=== PATIENT | male | born 1980 | race American Indian/Alaskan Native ===

== ENCOUNTER 2017-05-20 12:22 | Emergency (ER) | payer SELFPAY ==
[2017-05-20] MEDS ORDERED: XOPENEX IH ONE ×2 (12:42→12:43)
[2017-05-20] MEDS ORDERED: ATROVENT IH ONE ×2 (12:42→12:43)
[2017-05-20] MEDS: XOPENEX IH ONE (12:48)
[2017-05-20] MEDS ORDERED: MAGNESIUM SULFATE 2GM/50ML 2 GM/50 ML BAG IV ONE (12:55)
[2017-05-20 13:39] LABS: Basophils # (Auto) 0.1 K/mm3 (0.0-0.1); Basophils % (Auto) 1.2 % (0.0-1.8); Eosinophils # (Auto) 0.7 K/mm3 (0.0-0.4); Eosinophils % (Auto) 10.9 % (0.0-4.3); Hematocrit 42.1 % (35.5-45.6); Hemoglobin 14.3 gm/dl (11.8-15.2); Lymphocytes # (Auto) 2.4 K/mm3 (1.2-5.4); Lymphocytes % (Auto) 35.4 % (13.4-35.0); Mean Corpuscular HGB Conc 34 % (32-34); Mean Corpuscular Hemoglobin 32 pg (28-32); Mean Corpuscular Volume 94 fl (84-94); Monocytes # (Auto) 0.2 K/mm3 (0.0-0.8); Monocytes % (Auto) 3.6 % (0.0-7.3); Platelet Count 180 K/mm3 (140-440); Red Cell Distribution Width 13.3 % (13.2-15.2)
[2017-05-20 13:56] LABS: BUN/Creatinine Ratio 10; Blood Urea Nitrogen 9 mg/dL (9-20); Calcium 8.8 mg/dL (8.4-10.2); Hemolysis Index 3
--- NOTE | 2017-05-20 13:59 | XRay Report ---
AP CHEST: HISTORY: Short of breath, cough AP view of the chest demonstrates a normal mediastinal and cardiac contour with clear lungs and normal bony and soft tissue structures. IMPRESSION: Unremarkable AP chest.
--- NOTE | 2017-05-20 14:14 | Emergency Department Report ---
ED Asthma HPI - General Chief Complaint: Adult Asthma Stated Complaint: ASTHMA ATTACK/MODERATE Time Seen by Provider: 05/20/17 12:51 Source: patient, EMS Mode of arrival: Stretcher Limitations: No Limitations - History of Present Illness Initial Comments: 37 year old male with a past medical history of asthma without any previous intubations presents to the hospital complaining of shortness of breath since last night. Patient reports a cough productive of clear sputum. Complains of posterior back pain related to shortness of breath and coughing but denies chest pain. No complaints of fever, calf tenderness, or edema. Patient received albuterol 2.5 mg, Atrovent 0.5 mg, Solu-Medrol 125 mg prior to arrival and states that symptoms are starting to improve. - Related Data Previous Rx's Medication Instructions Recorded Last Taken Type Acetaminophen/Codeine 1 tab PO Q6H PRN #12 tab 02/01/14 Unknown Rx [Acetaminophen-Codeine #3 TAB] Cyclobenzaprine [Flexeril 10mg] 10 mg PO TID PRN #15 tablet 02/01/14 Unknown Rx Ibuprofen [Motrin 400 MG tab] 400 mg PO Q8H PRN #30 tablet 02/01/14 Unknown Rx ALBUTEROL Inhaler [ProAir HFA 2 puff IH QID PRN #1 inhalation 05/20/17 Unknown Rx Inhaler] ALBUTEROL NEB's [Proventil 0.083% 2.5 mg IH TID PRN #30 neb 05/20/17 Unknown Rx NEBS] Budesonide/Formoterol Fumarate 10.2 gm IH BID #1 hfa.aer.ad 05/20/17 Unknown Rx [Symbicort 160-4.5 Mcg Inhaler] predniSONE [Deltasone] 40 mg PO QDAY 5 Days tab 05/20/17 Unknown Rx Allergies Allergy/AdvReac Type Severity Reaction Status Date / Time No Known Allergies Allergy Verified 10/08/15 16:57 ED Review of Systems ROS: Stated complaint: ASTHMA ATTACK/MODERATE Other details as noted in HPI Comment: All other systems reviewed and negative Other: Constitutional: No fevers chills Eyes: No eye pain visual changes ENT: No ear pain or throat pain Neck: Denies pain Respiratory: As per HPI Cardiovascular: Denies chest pain GI: Denies abdominal pain, nausea, vomiting, diarrhea : Denies dysuria Musculoskeletal: Upper back pain Skin: Denies rash, lesions, erythema Neurologic: Denies headache, numbness, weakness Psychiatric: Denies suicidal ideation, hallucinations ED Past Medical Hx - Past Medical History Previous Medical History?: Yes Hx Asthma: Yes - Surgical History Past Surgical History?: No - Social History Smoking Status: Never Smoker Substance Use Type: Alcohol - Medications Home Medications: Home Medications Medication Instructions Recorded Confirmed Last Taken Type Acetaminophen/Codeine 1 tab PO Q6H PRN #12 tab 02/01/14 05/20/17 Unknown Rx [Acetaminophen-Codeine #3 TAB] Cyclobenzaprine [Flexeril 10mg] 10 mg PO TID PRN #15 tablet 02/01/14 05/20/17 Unknown Rx Ibuprofen [Motrin 400 MG tab] 400 mg PO Q8H PRN #30 tablet 02/01/14 05/20/17 Unknown Rx ALBUTEROL Inhaler [ProAir HFA 2 puff IH QID PRN #1 inhalation 05/20/17 Unknown Rx Inhaler] ALBUTEROL NEB's [Proventil 0.083% 2.5 mg IH TID PRN #30 neb 05/20/17 Unknown Rx NEBS] Budesonide/Formoterol Fumarate 10.2 gm IH BID #1 hfa.aer.ad 05/20/17 Unknown Rx [Symbicort 160-4.5 Mcg Inhaler] predniSONE [Deltasone] 40 mg PO QDAY 5 Days tab 05/20/17 Unknown Rx ED Physical Exam - General Limitations: No Limitations - Other Other exam information: General: No limitations, moderate distress secondary to shortness of breath Head exam: Atraumatic, normocephalic Eyes exam: Normal appearance ENT: Moist mucous membrane, normal oropharynx Neck exam: Normal inspection, full range of motion, no meningismus nontender Respiratory exam: Positive tachypnea, accessory muscle use, and wheezing Cardiovascular: Normal rate and rhythm, normal heart sounds Abdomen: Soft, nondistended, and nontender, with normal bowel sounds, no rebound, or guarding Extremity: Full range of motion normal inspection no deformity, no calf tenderness or edema Back: Normal Inspection, full range of motion, no tenderness Neurologic: Alert, oriented x3, cranial nerves intact, no motor or sensory deficit Psychiatric: normal affect, normal mood Skin: Warm, dry, intact ED Course Vital Signs 0205/20/17 05/20/17 12:37 12:44 13:01 Temperature 98.3 F Pulse Rate 111 H Pulse Rate [ 106 H 107 H Anterior Throughout] Respiratory 22 Rate Respiratory 22 20 Rate [Anterior Throughout] Blood Pressure 120/75 Blood Pressure [Left] O2 Sat by Pulse 97 Oximetry 05/20/17 05/20/17 15:32 16:10 Temperature Pulse Rate 77 Pulse Rate [ Anterior Throughout] Respiratory 16 Rate Respiratory Rate [Anterior Throughout] Blood Pressure Blood Pressure 108/80 [Left] O2 Sat by Pulse 96 Oximetry - Reevaluation(s) Reevaluation #1: 05/20/17 16:07 Patient still has wheezing. States he is feeling better. Declines offer for additional treatments per prefers to go home with prescriptions ED Medical Decision Making - Lab Data Result diagrams: 05/20/17 13:12 05/20/17 13:12 Lab Results 05/20/17 05/20/17 Range/Units 13:12 13:12 WBC 6.7 (4.5-11.0) K/mm3 RBC 4.50 (3.65-5.03) M/mm3 Hgb 14.3 (11.8-15.2) gm/dl Hct 42.1 (35.5-45.6) % MCV 94 (84-94) fl MCH 32 (28-32) pg MCHC 34 (32-34) % RDW 13.3 (13.2-15.2) % Plt Count 180 (140-440) K/mm3 Lymph % (Auto) 35.4 H (13.4-35.0) % Geary % (Auto) 3.6 (0.0-7.3) % Eos % (Auto) 10.9 H (0.0-4.3) % Baso % (Auto) 1.2 (0.0-1.8) % Lymph # 2.4 (1.2-5.4) K/mm3 Geary # 0.2 (0.0-0.8) K/mm3 Eos # 0.7 H (0.0-0.4) K/mm3 Baso # 0.1 (0.0-0.1) K/mm3 Seg Neutrophils % 48.9 (40.0-70.0) % Seg Neutrophils # 3.3 (1.8-7.7) K/mm3 Sodium 142 (137-145) mmol/L Potassium 4.2 (3.6-5.0) mmol/L Chloride 105.2 (98-107) mmol/L Carbon Dioxide 24 (22-30) mmol/L Anion Gap 17 mmol/L BUN 9 (9-20) mg/dL Creatinine 0.9 (0.8-1.5) mg/dL Estimated GFR > 60 ml/min BUN/Creatinine Ratio 10 % Glucose 94 (75-100) mg/dL Calcium 8.8 (8.4-10.2) mg/dL - Radiology Data Radiology results: report reviewed (chest x-ray: No acute finding) - Medical Decision Making Acute asthma exacerbation We'll be treated symptomatically Persistent wheezing Declines additional meds - Differential Diagnosis asthma, pneumonia, CHF, bronchitis Critical Care Time: No Critical care attestation.: If time is entered above; I have spent that time in minutes in the direct care of this critically ill patient, excluding procedure time. ED Disposition Clinical Impression: Acute asthma exacerbation Disposition: DC- TO HOME OR SELFCARE Is pt being admited?: No Does the pt Need Aspirin: No Condition: Stable Instructions: Asthma (ED) Additional Instructions: Take the medication as prescribed. Return if symptoms worsen. Prescriptions: ALBUTEROL Inhaler [ProAir HFA Inhaler] 2 puff IH QID PRN #1 inhalation PRN Reason: Shortness Of Breath ALBUTEROL NEB's [Proventil 0.083% NEBS] 2.5 mg IH TID PRN #30 neb PRN Reason: Wheezing Budesonide/Formoterol Fumarate [Symbicort 160-4.5 Mcg Inhaler] 10.2 gm IH BID # 1 hfa.aer.ad predniSONE [Deltasone] 40 mg PO QDAY 5 Days tab Referrals: [facility] [Provider Group] - 3-5 Days Time of Disposition: 16:10
[2017-05-20 15:33] VITALS: BP 108/80
== END 2017-05-20 16:29 | disposition home or self-care (01) ==
LOC: ED 12:22
DX: J45.901 Unspecified asthma with (acute) exacerbation (principal)
CPT/HCPCS: 36415; 71045; 80048; 85025; 94640; 96365; 99284; J3475

== ENCOUNTER 2017-10-08 09:07 | Emergency (ER) | payer SELFPAY ==
[2017-10-08 09:21] VITALS: BP 96/67
--- NOTE | 2017-10-08 10:24 | Emergency Department Report ---
ED Asthma HPI - General Chief Complaint: Adult Asthma Stated Complaint: ASMTHA Time Seen by Provider: 10/08/17 09:40 Source: patient Mode of arrival: Ambulatory Limitations: No Limitations - History of Present Illness Initial Comments: Patient with poor compliance and poor follow-up has had difficulty with control of his chronic asthma. He states that he started about 5 days ago with an asthma attack this would off arm since. He is running low on his meds. He has no PCP however he did just get health insurance and is in the process of arranging a new PCP. He is here for persistent wheezes for about a week. He did have some old prednisone on the shelf that he decided to take for several days. He denies chest pain he denies fever he denies headache stiff neck he denies productive sputum he denies syncope he denies any focal neural complaints he is here for evaluation of persistent wheezes with history of chronic asthma. His vital signs are stable his sat is normal he has no other complaints no stiff neck no headache no fever MD Complaint: "asthma attack", wheezing -: Gradual, days(s) Severity: mild, moderate Context: other (humidity exercise"air polluitn) - Related Data Current Asthma Therapy: inhaled bronchodilator, recent oral steroid Previous Rx's Medication Instructions Recorded Last Taken Type Acetaminophen/Codeine 1 tab PO Q6H PRN #12 tab 02/01/14 Unknown Rx [Acetaminophen-Codeine #3 TAB] Cyclobenzaprine [Flexeril 10mg] 10 mg PO TID PRN #15 tablet 02/01/14 Unknown Rx Ibuprofen [Motrin 400 MG tab] 400 mg PO Q8H PRN #30 tablet 02/01/14 Unknown Rx ALBUTEROL Inhaler [ProAir HFA 2 puff IH QID PRN #1 inhalation 10/08/17 Unknown Rx Inhaler] ALBUTEROL NEB's [Proventil 0.083% 2.5 mg IH TID PRN #30 neb 10/08/17 Unknown Rx NEBS] Budesonide/Formoterol Fumarate 10.2 gm IH BID #1 hfa.aer.ad 10/08/17 Unknown Rx [Symbicort 160-4.5 Mcg Inhaler] predniSONE [Deltasone] 40 mg PO QDAY 5 Days tab 10/08/17 Unknown Rx Allergies Allergy/AdvReac Type Severity Reaction Status Date / Time No Known Allergies Allergy Verified 10/08/17 09:18 ED Review of Systems ROS: Stated complaint: ASMTHA Other details as noted in HPI Comment: All other systems reviewed and negative Constitutional: denies: diaphoresis, fever, malaise Eyes: denies: eye discharge, vision change ENT: denies: dental pain, hearing loss, epistaxis Respiratory: wheezing. denies: cough, orthopnea, shortness of breath, SOB with exertion, SOB at rest, stridor Cardiovascular: denies: chest pain, palpitations, dyspnea on exertion, orthopnea , edema, syncope, paroxysmal nocturnal dyspnea Endocrine: denies: excessive sweating, flushing, intolerance to cold, intolerance to heat Gastrointestinal: denies: abdominal pain, nausea, vomiting, diarrhea, constipation, hematemesis, melena, hematochezia Skin: denies: rash, lesions Neurological: denies: headache, weakness, numbness, paresthesias, confusion Psychiatric: anxiety. denies: depression, auditory hallucinations, visual hallucinations, suicidal thoughts ED Past Medical Hx - Past Medical History Hx Asthma: Yes - Surgical History Past Surgical History?: No - Social History Smoking Status: Never Smoker Substance Use Type: None - Medications Home Medications: Home Medications Medication Instructions Recorded Confirmed Last Taken Type Acetaminophen/Codeine 1 tab PO Q6H PRN #12 tab 02/01/14 05/20/17 Unknown Rx [Acetaminophen-Codeine #3 TAB] Cyclobenzaprine [Flexeril 10mg] 10 mg PO TID PRN #15 tablet 02/01/14 05/20/17 Unknown Rx Ibuprofen [Motrin 400 MG tab] 400 mg PO Q8H PRN #30 tablet 02/01/14 05/20/17 Unknown Rx ALBUTEROL Inhaler [ProAir HFA 2 puff IH QID PRN #1 inhalation 10/08/17 Unknown Rx Inhaler] ALBUTEROL NEB's [Proventil 0.083% 2.5 mg IH TID PRN #30 neb 10/08/17 Unknown Rx NEBS] Budesonide/Formoterol Fumarate 10.2 gm IH BID #1 hfa.aer.ad 10/08/17 Unknown Rx [Symbicort 160-4.5 Mcg Inhaler] predniSONE [Deltasone] 40 mg PO QDAY 5 Days tab 10/08/17 Unknown Rx ED Physical Exam - General Limitations: No Limitations General appearance: alert, in no apparent distress - Head Head exam: Present: atraumatic, normocephalic - Eye Eye exam: Present: normal appearance, PERRL, EOMI - ENT ENT exam: Present: normal exam, normal orophraynx - Neck Neck exam: Present: normal inspection. Absent: tenderness, meningismus - Respiratory Respiratory exam: Present: wheezes, prolonged expiratory. Absent: respiratory distress, rales, rhonchi, stridor, accessory muscle use - Cardiovascular Cardiovascular Exam: Present: regular rate, normal rhythm - GI/Abdominal GI/Abdominal exam: Present: soft. Absent: tenderness, guarding, rebound, rigid , mass, pulsatile mass - Extremities Exam Extremities exam: Present: normal inspection, normal capillary refill. Absent: pedal edema, joint swelling, calf tenderness - Back Exam Back exam: Present: normal inspection. Absent: CVA tenderness (L), muscle spasm , paraspinal tenderness, vertebral tenderness - Neurological Exam Neurological exam: Present: alert, oriented X3, CN II-XII intact. Absent: motor sensory deficit ED Course Vital Signs 10/08/17 09:19 Temperature 97.9 F Pulse Rate 79 Respiratory 18 Rate Blood Pressure 96/67 O2 Sat by Pulse 97 Oximetry ED Medical Decision Making - EKG Data EKG shows normal: sinus rhythm Rate: normal - EKG Data When compared to previous EKG there are: previous EKG unavailable Interpretation: other (early repolarization pattern no ischemic changes) - Medical Decision Making Patient has stable vital signs respiratory rate and sats are normal he is in no distress although he does still have wheezes we will restart his medicines he was informed of the need of outpatient for preventative therapy he iwll need another 5 days of prednisone he hasn't been consistently taking it for 2 weeks would indicate any risk of adrenal suppression but he was informed of need for outpatient follow-up. He is nontoxic at this time vital signs are stable at nl saturation no history which suggests fever or pneumonia denies productive sputum is not having any type of exertional symptoms and is stable for outpatient follow-up, no old ekg but likel chronic early repol, no ssx acs are noted at tis time Critical care attestation.: If time is entered above; I have spent that time in minutes in the direct care of this critically ill patient, excluding procedure time. ED Disposition Clinical Impression: Asthma Disposition: DC- TO HOME OR SELFCARE Is pt being admited?: No Condition: Stable Instructions: Asthma (ED) Additional Instructions: See the doctor listed her regular doctor in 2 days or return immediately if new or alarming symptoms such as worsening of symptoms fever chest pain or other problems or call 911 Prescriptions: ALBUTEROL Inhaler [ProAir HFA Inhaler] 2 puff IH QID PRN #1 inhalation PRN Reason: Shortness Of Breath ALBUTEROL NEB's [Proventil 0.083% NEBS] 2.5 mg IH TID PRN #30 neb PRN Reason: Wheezing Budesonide/Formoterol Fumarate [Symbicort 160-4.5 Mcg Inhaler] 10.2 gm IH BID # 1 hfa.aer.ad predniSONE [Deltasone] 40 mg PO QDAY 5 Days tab Referrals: PRIMARY CARE, [Primary Care Provider] - 3-5 Days NATALIE HAIDER MD [Staff Physician] - 3-5 Days Time of Disposition: 10:32
== END 2017-10-08 10:56 | disposition home or self-care (01) ==
LOC: ED 09:07
DX: J45.909 Unspecified asthma, uncomplicated (principal)
CPT/HCPCS: 93005; 93010; 99282

== ENCOUNTER 2017-11-09 18:02 | Emergency (ER) | payer SELFPAY ==
[2017-11-09] MEDS ORDERED: PROVENTIL IH ONE ×3 (18:20→18:33)
[2017-11-09] MEDS ORDERED: ATROVENT IH ONE ×2 (18:21→18:33)
[2017-11-09] MEDS ORDERED: XOPENEX IH ONE ×2 (20:38→20:46)
--- NOTE | 2017-11-09 20:42 | Emergency Department Report ---
ED Asthma HPI - General Chief Complaint: Adult Asthma Stated Complaint: D.I.B. Time Seen by Provider: 11/09/17 20:37 Source: patient, EMS Mode of arrival: Wheelchair Limitations: No Limitations - History of Present Illness Initial Comments: 37-year-old -[place] male comes in for shortness of breath and reports is having an asthma attack. Patient reports that he's been suffering from shortness of breath for the last 2 days since he ran out of his medication. Patient admits to wheezing shortness of breath and cough. Patient has a past medical history of asthma currently supposed to be on Symbicort albuterol nebs as well as albuterol inhaler. He does not have a primary care provider at this time. The fever chills no cold-like symptoms. MD Complaint: "asthma attack", wheezing Asthma History: history of frequent attac Context: ran out of meds Associated Symptoms: denies: productive cough, fever - Related Data Current Asthma Therapy: inhaled bronchodilator, inhaled steroid Previous Rx's Medication Instructions Recorded Last Taken Type Acetaminophen/Codeine 1 tab PO Q6H PRN #12 tab 02/01/14 Unknown Rx [Acetaminophen-Codeine #3 TAB] Cyclobenzaprine [Flexeril 10mg] 10 mg PO TID PRN #15 tablet 02/01/14 Unknown Rx Ibuprofen [Motrin 400 MG tab] 400 mg PO Q8H PRN #30 tablet 02/01/14 Unknown Rx predniSONE [Deltasone] 40 mg PO QDAY 5 Days tab 10/08/17 Unknown Rx ALBUTEROL Inhaler [ProAir HFA 2 puff IH QID PRN #1 inhalation 11/09/17 Unknown Rx Inhaler] ALBUTEROL NEB's [Proventil 0.083% 2.5 mg IH TID PRN #1 box 11/09/17 Unknown Rx NEBS] Budesonide/Formoterol Fumarate 10.2 gm IH BID #1 hfa.aer.ad 11/09/17 Unknown Rx [Symbicort 160-4.5 Mcg Inhaler] Prednisone [predniSONE 5 mg (6-Day 5 mg PO .TAPER #1 tab.ds.pk 11/09/17 Unknown Rx Pack, 21 Tabs)] Allergies Allergy/AdvReac Type Severity Reaction Status Date / Time No Known Allergies Allergy Verified 10/08/17 09:18 ED Review of Systems ROS: Stated complaint: D.I.B. Other details as noted in HPI Respiratory: cough, shortness of breath, wheezing ED Past Medical Hx - Past Medical History Hx Asthma: Yes - Surgical History Past Surgical History?: No - Social History Smoking Status: Never Smoker Substance Use Type: Alcohol - Medications Home Medications: Home Medications Medication Instructions Recorded Confirmed Last Taken Type Acetaminophen/Codeine 1 tab PO Q6H PRN #12 tab 02/01/14 05/20/17 Unknown Rx [Acetaminophen-Codeine #3 TAB] Cyclobenzaprine [Flexeril 10mg] 10 mg PO TID PRN #15 tablet 02/01/14 05/20/17 Unknown Rx Ibuprofen [Motrin 400 MG tab] 400 mg PO Q8H PRN #30 tablet 02/01/14 05/20/17 Unknown Rx predniSONE [Deltasone] 40 mg PO QDAY 5 Days tab 10/08/17 Unknown Rx ALBUTEROL Inhaler [ProAir HFA 2 puff IH QID PRN #1 inhalation 11/09/17 Unknown Rx Inhaler] ALBUTEROL NEB's [Proventil 0.083% 2.5 mg IH TID PRN #1 box 11/09/17 Unknown Rx NEBS] Budesonide/Formoterol Fumarate 10.2 gm IH BID #1 hfa.aer.ad 11/09/17 Unknown Rx [Symbicort 160-4.5 Mcg Inhaler] Prednisone [predniSONE 5 mg (6-Day 5 mg PO .TAPER #1 tab.ds.pk 11/09/17 Unknown Rx Pack, 21 Tabs)] ED Physical Exam - General Limitations: No Limitations General appearance: alert, in no apparent distress - Head Head exam: Present: atraumatic, normocephalic - Eye Eye exam: Present: normal appearance, EOMI - ENT ENT exam: Present: mucous membranes moist - Neck Neck exam: Present: normal inspection - Respiratory Respiratory exam: Present: rhonchi, prolonged expiratory - Cardiovascular Cardiovascular Exam: Present: regular rate, normal rhythm. Absent: systolic murmur, diastolic murmur, rubs, gallop - GI/Abdominal GI/Abdominal exam: Present: soft, normal bowel sounds ED Course Vital Signs 11/09/17 18:11 Temperature 98.1 F Pulse Rate 73 Respiratory 20 Rate Blood Pressure 103/77 O2 Sat by Pulse 97 Oximetry - Reevaluation(s) Reevaluation #1: 11/09/17 22:20 Patient reports he feels much better after having the last treatment. ED Medical Decision Making - Radiology Data Radiology results: report reviewed, image reviewed FINAL REPORT EXAM: XR CHEST ROUTINE 2V HISTORY: rhonchus TECHNIQUE: PA and lateral views of the chest Comparison: None FINDINGS: There prominence of the interstitial markings in both lungs with peribronchial thickening. This may represent changes of bronchiolitis. There is no evidence of focal infiltrate, pneumothorax or pleural fluid collection. The cardiomediastinal silhouette is normal in appearance. The bony structures are notable for mild dextrocurvature of the thoracic spine. IMPRESSION: 1. Prominence of the interstitial markings with peribronchial thickening. This may represent changes of bronchiolitis. 2. Mild dextrocurvature thoracic spine. Transcribed By: ED Dictated By: LAMAR ZAMBRANO MD Electronically Authenticated By: LAMAR ZAMBRANO MD Signed Date/Time: 11/09/172150 DD/ 50 TD/TT: 11/09/172150 - Medical Decision Making Patient has been evaluated by this provider fast track. Patient has had 1 rounds of albuterol neb treatments one round of Xopenex and DuoNeb as well as Solu-Medrol 125 mg. He also had magnesium 2 g IV. Chest x-ray showed the patient has bronchiolitis which is best to her bronchodilators and can last up to 2 weeks for cough. Discharge patient with supportive care with a prescription for albuterol inhaler and prednisone pack. Critical care attestation.: If time is entered above; I have spent that time in minutes in the direct care of this critically ill patient, excluding procedure time. ED Disposition Clinical Impression: Bronchiolitis Reactive airway disease with acute exacerbation Qualifiers: Asthma severity: unspecified severity Asthma persistence: unspecified Qualified Code(s): J45.901 - Unspecified asthma with (acute) exacerbation Disposition: -01 TO HOME OR SELFCARE Is pt being admited?: No Does the pt Need Aspirin: No Condition: Stable Instructions: Chronic Bronchitis (ED) Additional Instructions: Please use your inhalers and take her steroids as prescribed. If her symptoms persist or gets worse please follow up with her primary care provider. Prescriptions: ALBUTEROL Inhaler [ProAir HFA Inhaler] 2 puff IH QID PRN #1 inhalation PRN Reason: Shortness Of Breath ALBUTEROL NEB's [Proventil 0.083% NEBS] 2.5 mg IH TID PRN #1 box PRN Reason: Wheezing Budesonide/Formoterol Fumarate [Symbicort 160-4.5 Mcg Inhaler] 10.2 gm IH BID # 1 hfa.aer.ad Prednisone [predniSONE 5 mg (6-Day Pack, 21 Tabs)] 5 mg PO .TAPER #1 tab.ds.pk Referrals: PRIMARY CARE, [Primary Care Provider] - 3-5 Days [facility] [Provider Group] - 3-5 Days Forms: Work/School Release Form(ED)
[2017-11-09] MEDS ORDERED: MAGNESIUM SULFATE 2GM/50ML 2 GM/50 ML BAG IV ONE (20:49)
[2017-11-09] MEDS ORDERED: MAGNESIUM SULFATE IV ONE (20:49)
--- NOTE | 2017-11-09 21:59 | XRay Report ---
FINAL REPORT EXAM: XR CHEST ROUTINE 2V HISTORY: rhonchus TECHNIQUE: PA and lateral views of the chest Comparison: None FINDINGS: There prominence of the interstitial markings in both lungs with peribronchial thickening. This may represent changes of bronchiolitis. There is no evidence of focal infiltrate, pneumothorax or pleural fluid collection. The cardiomediastinal silhouette is normal in appearance. The bony structures are notable for mild dextrocurvature of the thoracic spine. IMPRESSION: 1. Prominence of the interstitial markings with peribronchial thickening. This may represent changes of bronchiolitis. 2. Mild dextrocurvature thoracic spine.
[2017-11-09 22:22] VITALS: BP 106/78
== END 2017-11-09 22:21 | disposition home or self-care (01) ==
LOC: ED 18:02
DX: J21.9 Acute bronchiolitis, unspecified (principal); J45.901 Unspecified asthma with (acute) exacerbation
CPT/HCPCS: 71046; 94640; 96365; 96375; 99284; J2930; J3475

== ENCOUNTER 2017-12-10 17:03 | Emergency (ER) | payer SELFPAY ==
[2017-12-10 17:15] VITALS: BP 120/72
[2017-12-10] MEDS ORDERED: DUONEB *Not for PRN Use IH ONE (19:05)
[2017-12-10] MEDS ORDERED: DELTASONE PO ONE (19:05)
--- NOTE | 2017-12-10 19:09 | Emergency Department Report ---
ED Asthma HPI - General Chief Complaint: Adult Asthma Stated Complaint: ASTHMA Time Seen by Provider: 12/10/17 19:05 Source: patient Mode of arrival: Ambulatory Limitations: No Limitations - History of Present Illness Initial Comments: 37-year-old -[place] male known asthmatic comes in stating that he's had a flareup that started last night. Patient reports that he had ran out of his medication in the last 2 days. Patient reports he does not have a primary care provider at this time and he is just started a job. He denies any fever chills no chest pain or shortness of breathing leg swelling. -: Last night Severity: mild Context: ran out of meds Associated Symptoms: dry cough - Related Data Current Asthma Therapy: inhaled bronchodilator, inhaled steroid Previous Rx's Medication Instructions Recorded Last Taken Type Acetaminophen/Codeine 1 tab PO Q6H PRN #12 tab 02/01/14 Unknown Rx [Acetaminophen-Codeine #3 TAB] Cyclobenzaprine [Flexeril 10mg] 10 mg PO TID PRN #15 tablet 02/01/14 Unknown Rx Ibuprofen [Motrin 400 MG tab] 400 mg PO Q8H PRN #30 tablet 02/01/14 Unknown Rx predniSONE [Deltasone] 40 mg PO QDAY 5 Days tab 10/08/17 Unknown Rx ALBUTEROL Inhaler (OR & NICU) 2 puff IH QID PRN #1 inhalation 12/10/17 Unknown Rx [ProAir HFA Inhaler] ALBUTEROL NEB's [Proventil 0.083% 2.5 mg IH TID PRN #1 box 12/10/17 Unknown Rx NEBS] Budesonide/Formoterol Fumarate 10.2 gm IH BID #1 hfa.aer.ad 12/10/17 Unknown Rx [Symbicort 160-4.5 Mcg Inhaler] Prednisone [predniSONE 5 mg (6-Day 5 mg PO .TAPER #1 tab.ds.pk 12/10/17 Unknown Rx Pack, 21 Tabs)] Allergies Allergy/AdvReac Type Severity Reaction Status Date / Time No Known Allergies Allergy Verified 10/08/17 09:18 ED Review of Systems ROS: Stated complaint: ASTHMA Other details as noted in HPI Comment: All other systems reviewed and negative Constitutional: denies: chills, fever Respiratory: cough, wheezing ED Past Medical Hx - Past Medical History Hx Asthma: Yes - Surgical History Past Surgical History?: No - Social History Smoking Status: Former Smoker Substance Use Type: Alcohol - Medications Home Medications: Home Medications Medication Instructions Recorded Confirmed Last Taken Type Acetaminophen/Codeine 1 tab PO Q6H PRN #12 tab 02/01/14 05/20/17 Unknown Rx [Acetaminophen-Codeine #3 TAB] Cyclobenzaprine [Flexeril 10mg] 10 mg PO TID PRN #15 tablet 02/01/14 05/20/17 Unknown Rx Ibuprofen [Motrin 400 MG tab] 400 mg PO Q8H PRN #30 tablet 02/01/14 05/20/17 Unknown Rx predniSONE [Deltasone] 40 mg PO QDAY 5 Days tab 10/08/17 Unknown Rx ALBUTEROL Inhaler (OR & NICU) 2 puff IH QID PRN #1 inhalation 12/10/17 Unknown Rx [ProAir HFA Inhaler] ALBUTEROL NEB's [Proventil 0.083% 2.5 mg IH TID PRN #1 box 12/10/17 Unknown Rx NEBS] Budesonide/Formoterol Fumarate 10.2 gm IH BID #1 hfa.aer.ad 12/10/17 Unknown Rx [Symbicort 160-4.5 Mcg Inhaler] Prednisone [predniSONE 5 mg (6-Day 5 mg PO .TAPER #1 tab.ds.pk 12/10/17 Unknown Rx Pack, 21 Tabs)] ED Physical Exam - General Limitations: No Limitations General appearance: alert, in no apparent distress - Head Head exam: Present: atraumatic, normocephalic - Eye Eye exam: Present: EOMI - ENT ENT exam: Present: mucous membranes moist - Respiratory Respiratory exam: Present: wheezes - Cardiovascular Cardiovascular Exam: Present: regular rate, normal rhythm. Absent: systolic murmur, diastolic murmur, rubs, gallop - GI/Abdominal GI/Abdominal exam: Present: soft, normal bowel sounds - Extremities Exam Extremities exam: Absent: pedal edema - Neurological Exam Neurological exam: Present: alert, oriented X3, normal gait - Psychiatric Psychiatric exam: Present: normal affect, normal mood - Skin Skin exam: Present: warm, dry, intact, normal color. Absent: rash ED Course Vital Signs 12/10/17 17:08 Temperature 98.6 F Pulse Rate 95 H Respiratory 18 Rate Blood Pressure 120/72 O2 Sat by Pulse 99 Oximetry ED Medical Decision Making - Medical Decision Making Patient has been evaluated by this provider fast track. Patient will be given a DuoNeb and prednisone 40 mg by mouth. We'll discharge patient on prednisone taper refill his albuterol and Symbicort. Education on how to take his medications. Critical care attestation.: If time is entered above; I have spent that time in minutes in the direct care of this critically ill patient, excluding procedure time. ED Disposition Clinical Impression: Asthma Qualifiers: Asthma severity: mild Asthma persistence: unspecified Asthma complication type : with acute exacerbation Qualified Code(s): J45.901 - Unspecified asthma with ( acute) exacerbation Disposition: DC- TO HOME OR SELFCARE Is pt being admited?: No Does the pt Need Aspirin: No Condition: Stable Instructions: Asthma (ED) Additional Instructions: Please take medication as prescribed. Please follow up with the primary care provider I have listed [facility] for your convenience. Prescriptions: ALBUTEROL Inhaler (OR & NICU) [ProAir HFA Inhaler] 2 puff IH QID PRN #1 inhalation PRN Reason: Shortness Of Breath ALBUTEROL NEB's [Proventil 0.083% NEBS] 2.5 mg IH TID PRN #1 box PRN Reason: Wheezing Budesonide/Formoterol Fumarate [Symbicort 160-4.5 Mcg Inhaler] 10.2 gm IH BID # 1 hfa.aer.ad Prednisone [predniSONE 5 mg (6-Day Pack, 21 Tabs)] 5 mg PO .TAPER #1 tab.ds.pk Referrals: PRIMARY CARE, [Primary Care Provider] - 3-5 Days [facility] [Provider Group] - 3-5 Days Forms: Work/School Release Form(ED)
== END 2017-12-10 20:05 | disposition home or self-care (01) ==
LOC: ED 17:03
DX: J45.901 Unspecified asthma with (acute) exacerbation (principal); Z87.891 Personal history of nicotine dependence; Z79.899 Other long term (current) drug therapy
CPT/HCPCS: 94640; 99283; J7512

== ENCOUNTER 2018-04-29 17:34 | Emergency (ER) | payer SELFPAY ==
[2018-04-29] MEDS ORDERED: DUONEB *Not for PRN Use IH ONE ×2 (19:25→19:41)
[2018-04-29] MEDS ORDERED: DECADRON IV ONE (19:41)
[2018-04-29] MEDS ORDERED: PROVENTIL IH ONE (19:42)
--- NOTE | 2018-04-29 20:26 | Emergency Department Report ---
ED Asthma HPI - General Chief Complaint: Adult Asthma Stated Complaint: CHEST PAIN/ASTHMA Time Seen by Provider: 04/29/18 19:40 Source: patient Mode of arrival: Ambulatory Limitations: No Limitations - History of Present Illness Initial Comments: Patient's a 38-year-old female with history of asthma who presents for asthma attack times 2 days patient states out of albuterol inhaler so is rated at 6/10 exacerbated by level exposure and activity symptoms temporarily relieved by rest . No fever no chills no nausea vomiting or back pain or diaphoresis. MD Complaint: "asthma attack", shortness of breath, wheezing Onset/Timin -: days(s) Asthma History: childhood onset Severity: moderate Context: recent URI, ran out of meds, medication non-compliance Associated Symptoms: productive cough. denies: fever, chest pain, leg edema, syncope Treatments Prior to Arrival: inhaled bronchodilator - Related Data Current Asthma Therapy: inhaled bronchodilator Previous Rx's Medication Instructions Recorded Last Taken Type Acetaminophen/Codeine 1 tab PO Q6H PRN #12 tab 02/01/14 Unknown Rx [Acetaminophen-Codeine #3 TAB] Cyclobenzaprine [Flexeril 10mg] 10 mg PO TID PRN #15 tablet 02/01/14 Unknown Rx Ibuprofen [Motrin 400 MG tab] 400 mg PO Q8H PRN #30 tablet 02/01/14 Unknown Rx ALBUTEROL Inhaler (OR & NICU) 2 puff IH QID PRN #1 inhalation 12/10/17 Unknown Rx [ProAir HFA Inhaler] Budesonide/Formoterol Fumarate 10.2 gm IH BID #1 hfa.aer.ad 12/10/17 Unknown Rx [Symbicort 160-4.5 Mcg Inhaler] Prednisone [predniSONE 5 mg (6-Day 5 mg PO .TAPER #1 tab.ds.pk 12/10/17 Unknown Rx Pack, 21 Tabs)] ALBUTEROL NEB's [Proventil 0.083% 2.5 mg IH TID PRN #1 box 03/04/18 Unknown Rx NEBS] predniSONE [Deltasone] 40 mg PO QDAY 5 Days tab 03/04/18 Unknown Rx ALBUTEROL Inhaler(NF) [VENTOLIN 2 puff IH Q4H PRN #1 inha 04/29/18 Unknown Rx Inhaler(NF)] Azithromycin [Zithromax Z-GLADIS] 250 mg PO DAILY #6 tab 04/29/18 Unknown Rx Benzonatate [Tessalon Perle] 100 mg PO TID PRN #30 capsule 04/29/18 Unknown Rx Dexamethasone [Decadron] 4 mg PO BID 3 Days #6 tablet 04/29/18 Unknown Rx Ibuprofen 800 mg PO TID PRN #30 tablet 04/29/18 Unknown Rx Allergies Allergy/AdvReac Type Severity Reaction Status Date / Time No Known Allergies Allergy Verified 04/29/18 17:43 ED Review of Systems ROS: Stated complaint: CHEST PAIN/ASTHMA Other details as noted in HPI Constitutional: denies: chills, fever Eyes: denies: eye pain, eye discharge, vision change ENT: throat pain, congestion. denies: ear pain Respiratory: cough, shortness of breath, wheezing Cardiovascular: chest pain (chest pain with cough only ). denies: palpitations Endocrine: no symptoms reported Gastrointestinal: denies: abdominal pain, nausea, vomiting, diarrhea Genitourinary: denies: urgency, dysuria Musculoskeletal: denies: back pain, joint swelling, arthralgia Skin: denies: rash, lesions Neurological: denies: headache, weakness, paresthesias Psychiatric: denies: anxiety, depression Hematological/Lymphatic: denies: easy bleeding, easy bruising ED Past Medical Hx - Past Medical History Hx Asthma: Yes - Surgical History Past Surgical History?: No - Social History Smoking Status: Never Smoker Substance Use Type: Alcohol - Medications Home Medications: Home Medications Medication Instructions Recorded Confirmed Last Taken Type Acetaminophen/Codeine 1 tab PO Q6H PRN #12 tab 02/01/14 05/20/17 Unknown Rx [Acetaminophen-Codeine #3 TAB] Cyclobenzaprine [Flexeril 10mg] 10 mg PO TID PRN #15 tablet 02/01/14 05/20/17 Unknown Rx Ibuprofen [Motrin 400 MG tab] 400 mg PO Q8H PRN #30 tablet 02/01/14 05/20/17 Unknown Rx ALBUTEROL Inhaler (OR & NICU) 2 puff IH QID PRN #1 inhalation 12/10/17 Unknown Rx [ProAir HFA Inhaler] Budesonide/Formoterol Fumarate 10.2 gm IH BID #1 hfa.aer.ad 12/10/17 Unknown Rx [Symbicort 160-4.5 Mcg Inhaler] Prednisone [predniSONE 5 mg (6-Day 5 mg PO .TAPER #1 tab.ds.pk 12/10/17 Unknown Rx Pack, 21 Tabs)] ALBUTEROL NEB's [Proventil 0.083% 2.5 mg IH TID PRN #1 box 03/04/18 Unknown Rx NEBS] predniSONE [Deltasone] 40 mg PO QDAY 5 Days tab 03/04/18 Unknown Rx ALBUTEROL Inhaler(NF) [VENTOLIN 2 puff IH Q4H PRN #1 inha 04/29/18 Unknown Rx Inhaler(NF)] Azithromycin [Zithromax Z-GLADIS] 250 mg PO DAILY #6 tab 04/29/18 Unknown Rx Benzonatate [Tessalon Perle] 100 mg PO TID PRN #30 capsule 04/29/18 Unknown Rx Dexamethasone [Decadron] 4 mg PO BID 3 Days #6 tablet 04/29/18 Unknown Rx Ibuprofen 800 mg PO TID PRN #30 tablet 04/29/18 Unknown Rx ED Physical Exam - General Limitations: No Limitations General appearance: alert - Head Head exam: Present: atraumatic, normocephalic - Eye Eye exam: Present: normal appearance, PERRL, EOMI Pupils: Present: normal accommodation - ENT ENT exam: Present: mucous membranes moist, TM's normal bilaterally, normal external ear exam - Expanded ENT Exam Expanded Ear exam: Present: normal external inspection Mouth exam: Absent: trismus Throat exam: Positive: tonsillar erythema, tonsillomegaly. Negative: tonsillar exudate, R peritonsillar mass, L peritonsillar mass - Neck Neck exam: Present: normal inspection, full ROM. Absent: tenderness, meningismus, lymphadenopathy, thyromegaly - Respiratory Respiratory exam: Present: wheezes, chest wall tenderness, accessory muscle use - Cardiovascular Cardiovascular Exam: Present: regular rate, normal rhythm, normal heart sounds. Absent: systolic murmur, diastolic murmur, rubs, gallop - GI/Abdominal GI/Abdominal exam: Present: soft, normal bowel sounds. Absent: tenderness, bru it, hernia - Rectal Rectal exam: Present: deferred - Extremities Exam Extremities exam: Present: normal inspection, full ROM, normal capillary refill - Back Exam Back exam: Present: normal inspection, full ROM. Absent: tenderness, CVA tenderness (R), CVA tenderness (L) - Neurological Exam Neurological exam: Present: alert, oriented X3, CN II-XII intact, normal gait - Psychiatric Psychiatric exam: Present: normal affect, normal mood - Skin Skin exam: Present: warm, dry, intact, normal color. Absent: rash ED Course Vital Signs 04/29/18 04/29/18 17:43 19:45 Temperature 98.5 F Pulse Rate 95 H Pulse Rate [ 85 Posterior] Respiratory 16 Rate Respiratory 18 Rate [Posterior ] Blood Pressure 107/62 O2 Sat by Pulse 96 Oximetry ED Medical Decision Making - Radiology Data Radiology results: report reviewed, image reviewed cxr normal no opacities no infiltrates. - Medical Decision Making Symptoms improved patient ambulatory in ED without increased shortness of breath or wheezing This is asthma exacerbation also is improved at this time wheezing is resolved plan prednisone Z-Gladis and albuterol inhaler and Tessalon Pearles ibuprofen patient will follow with PCP in 2-3 days and/or return to emergency should symptoms worsen patient verbalized agreement and understanding with discharge plan patient will be DC'd to home in stable condition at this time. Critical care attestation.: If time is entered above; I have spent that time in minutes in the direct care of this critically ill patient, excluding procedure time. ED Disposition Clinical Impression: Asthma Qualifiers: Asthma severity: moderate Asthma persistence: persistent Asthma complication type: with acute exacerbation Qualified Code(s): J45.41 - Moderate persistent asthma with (acute) exacerbation Disposition: DC-01 TO HOME OR SELFCARE Is pt being admited?: No Does the pt Need Aspirin: No (Maalox Maalox, there is) Condition: Stable Instructions: Asthma (ED) Prescriptions: ALBUTEROL Inhaler(NF) [VENTOLIN Inhaler(NF)] 2 puff IH Q4H PRN #1 inha PRN Reason: shortness of breath wheezing Azithromycin [Zithromax Z-GLADIS] 250 mg PO DAILY #6 tab Benzonatate [Tessalon Perle] 100 mg PO TID PRN #30 capsule PRN Reason: Cough Dexamethasone [Decadron] 4 mg PO BID 3 Days #6 tablet Ibuprofen 800 mg PO TID PRN #30 tablet PRN Reason: pain Referrals: [facility] [Outside] - 3-5 Days Forms: Work/School Release Form(ED) Time of Disposition: 21:35
--- NOTE | 2018-04-29 21:13 | XRay Report ---
FINAL REPORT EXAM: XR CHEST ROUTINE 2V HISTORY: sob TECHNIQUE: Two view chest PA and lateral PRIORS: None. FINDINGS: Cardiac and mediastinal contours are unremarkable. No focal pulmonary infiltrate is identified. No pleural fluid collection seen. Pulmonary vasculature is unremarkable. IMPRESSION: Negative two-view chest
[2018-04-29 21:50] VITALS: BP 110/60
== END 2018-04-29 21:47 | disposition home or self-care (01) ==
LOC: ED 17:34
DX: J45.909 Unspecified asthma, uncomplicated (principal)
CPT/HCPCS: 71046; 94640; 96374; 99283; J1100

== ENCOUNTER 2018-05-27 18:29 | Emergency (ER) | payer OTHER ==
[2018-05-27] MEDS ORDERED: PROVENTIL IH ONE ×2 (18:52→19:25)
[2018-05-27] MEDS ORDERED: SOLU-Medrol IM ONE (18:52)
--- NOTE | 2018-05-27 18:53 | Emergency Department Report ---
Chief Complaint: Adult Asthma Stated Complaint: SOB Time Seen by Provider: 05/27/18 18:51 - HPI History of Present Illness: ASTHMA NEBS AT HOME SOB WHEEZING NO CP NO FEVER DUONEB IN TRIAGE MSE COMPLETED MSE screening note: Focused history and physical exam performed. Due to findings the following was ordered: ED Disposition for MSE Condition: Stable
[2018-05-27 19:02] VITALS: BP 104/62
--- NOTE | 2018-05-27 20:37 | Emergency Department Report ---
HPI - General Chief Complaint: Adult Asthma Time Seen by Provider: 05/27/18 18:51 - HPI HPI: 38-year-old [place] male presents to the emergency department with complaint of some wheezing, shortness of breath and a dry cough that he says is an exacerbation of his asthma. Patient has been out of his asthma medications. 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 He denies any fever, chest pain. He denies any tobacco use. He does not have a primary care physician. No recent travel or sick contacts at home. ED Past Medical Hx - Past Medical History Hx Asthma: Yes - Surgical History Past Surgical History?: No - Social History Smoking Status: Never Smoker Substance Use Type: None - Medications Home Medications: Home Medications Medication Instructions Recorded Confirmed Last Taken Type Acetaminophen/Codeine 1 tab PO Q6H PRN #12 tab 02/01/14 05/20/17 Unknown Rx [Acetaminophen-Codeine #3 TAB] Cyclobenzaprine [Flexeril 10mg] 10 mg PO TID PRN #15 tablet 02/01/14 05/20/17 Unknown Rx RX: Ibuprofen [Motrin 400 MG tab] 400 mg PO Q8H PRN #30 tablet 02/01/14 05/20/17 Unknown Rx RX: Prednisone [predniSONE 5 mg 5 mg PO .TAPER #1 tab.ds.pk 12/10/17 Unknown Rx (6-Day Pack, 21 Tabs)] Benzonatate [Tessalon Perle] 100 mg PO TID PRN #30 capsule 04/29/18 Unknown Rx Dexamethasone [Decadron] 4 mg PO BID 3 Days #6 tablet 04/29/18 Unknown Rx RX: Azithromycin [Zithromax Z-GLADIS] 250 mg PO DAILY #6 tab 04/29/18 Unknown Rx RX: Ibuprofen 800 mg PO TID PRN #30 tablet 04/29/18 Unknown Rx RX: ALBUTEROL Inhaler (OR & NICU) 2 puff IH QID PRN #1 inhalation 05/27/18 Unknown Rx [ProAir HFA Inhaler] RX: ALBUTEROL NEB's [Proventil 2.5 mg IH TID PRN #1 box 05/27/18 Unknown Rx 0.083% NEBS] RX: Budesonide/Formoterol Fumarate 10.2 gm IH BID #1 hfa.aer.ad 05/27/18 Unknown Rx [Symbicort 160-4.5 Mcg Inhaler] RX: predniSONE [Deltasone] 40 mg PO QDAY 5 Days tab 05/27/18 Unknown Rx ED Review of Systems ROS: Stated complaint: SOB Other details as noted in HPI Comment: All other systems reviewed and negative Constitutional: denies: chills, fever Eyes: denies: eye pain, vision change ENT: denies: ear pain, throat pain Respiratory: cough, shortness of breath, wheezing Cardiovascular: denies: chest pain, palpitations Gastrointestinal: denies: abdominal pain, vomiting Genitourinary: denies: dysuria, frequency Musculoskeletal: denies: back pain, arthralgia Skin: denies: rash, lesions Neurological: denies: headache, weakness Physical Exam - Physical Exam Vital Signs: Vital Signs 05/27/18 18:59 Temperature 97.7 F Pulse Rate 68 Respiratory 20 Rate Blood Pressure 104/62 [Left] O2 Sat by Pulse 99 Oximetry Physical Exam: GENERAL: The patient is well-developed well-nourished. HEENT: Normocephalic. Atraumatic. Patient has moist mucous membranes. EYES: Extraocular motions are intact. NECK: Supple. Trachea is midline. CHEST/LUNGS: Mild expiratory wheeze. No tachypnea or accessory muscle use. There is no respiratory distress noted. HEART/CARDIOVASCULAR: Regular. There is no tachycardia. There is no obvious murmur. ABDOMEN: There is no abdominal distention. SKIN: Skin is warm and dry. NEURO: The patient is awake, alert, and oriented. The patient is cooperative. The patient has no focal neurologic deficits. The patient has normal speech. MUSCULOSKELETAL: There is no tenderness or deformity. There is no limitation range of motion. There is no evidence of acute injury. ED Course Vital Signs 05/27/18 18:59 Temperature 97.7 F Pulse Rate 68 Respiratory 20 Rate Blood Pressure 104/62 [Left] O2 Sat by Pulse 99 Oximetry ED Medical Decision Making - Medical Decision Making Patient presents to the emergency department with some wheezing, dry cough and shortness of breath with a history of asthma. He has been out of his medications. He received a dose of Solu-Medrol and a breathing treatment through triage. He has some mild expiratory wheezing. Vital signs stable and being afebrile. Patient will be given a refill of his albuterol inhaler and nebulizer treatments, and steroids. He will return to the ER with any worsening of his symptoms or any acute distress. - Differential Diagnosis asthma, COPD, bronchitis Critical Care Time: No Critical care attestation.: If time is entered above; I have spent that time in minutes in the direct care of this critically ill patient, excluding procedure time. ED Disposition Clinical Impression: Bronchospasm Asthma exacerbation Qualifiers: Asthma severity: unspecified severity Asthma persistence: unspecified Qualified Code(s): J45.901 - Unspecified asthma with (acute) exacerbation Disposition: - TO HOME OR SELFCARE Is pt being admited?: No Condition: Stable Instructions: Asthma (ED) Additional Instructions: Please follow up with a primary care physician in the next few days. Return to the emergency Department with any worsening of your symptoms or any acute distress. Prescriptions: RX: ALBUTEROL Inhaler (OR & NICU) [ProAir HFA Inhaler] 2 puff IH QID PRN #1 inhalation PRN Reason: Shortness Of Breath RX: ALBUTEROL NEB's [Proventil 0.083% NEBS] 2.5 mg IH TID PRN #1 box PRN Reason: Wheezing RX: Budesonide/Formoterol Fumarate [Symbicort 160-4.5 Mcg Inhaler] 10.2 gm IH BID #1 hfa.aer.ad RX: predniSONE [Deltasone] 40 mg PO QDAY 5 Days tab Referrals: JOSE MORAN MD [Staff Physician] - 2-3 Days [facility] [Outside] - 2-3 Days Time of Disposition: 20:37
== END 2018-05-27 21:00 | disposition home or self-care (01) ==
LOC: ED 18:29
DX: J45.901 Unspecified asthma with (acute) exacerbation (principal)
CPT/HCPCS: 96372; 99283; J2930; 94640

== ENCOUNTER 2018-07-15 18:35 | Emergency (ER) | payer OTHER ==
[2018-07-15] MEDS ORDERED: DUONEB *Not for PRN Use IH ONE (18:59)
[2018-07-15] MEDS ORDERED: DELTASONE PO ONE (19:00)
[2018-07-15] MEDS ORDERED: PROVENTIL IH ONE (19:03)
[2018-07-15] MEDS ORDERED: ATROVENT IH ONE (19:06)
--- NOTE | 2018-07-15 21:24 | Emergency Department Report ---
ED Asthma HPI - General Chief Complaint: Adult Asthma Stated Complaint: ASTHMA/SOB/CHEST PAIN Time Seen by Provider: 07/15/18 19:12 Source: patient Mode of arrival: Ambulatory Limitations: No Limitations - History of Present Illness Initial Comments: pt is 38 y/o aam with hx of asthma who presents for sob wheezing x 1 day out of medications symptoms rated as 5/10 exacerbated by activity and environmental exposure relieved by albuterol inhaler temporarily there is no fever no chills no n/v MD Complaint: "asthma attack" Onset/Timin -: days(s) Asthma History: childhood onset Severity: moderate - Related Data Current Asthma Therapy: inhaled bronchodilator Previous Rx's Medication Instructions Recorded Last Taken Type Acetaminophen/Codeine 1 tab PO Q6H PRN #12 tab 02/01/14 Unknown Rx [Acetaminophen-Codeine #3 TAB] Cyclobenzaprine [Flexeril 10mg] 10 mg PO TID PRN #15 tablet 02/01/14 Unknown Rx Ibuprofen [Motrin 400 MG tab] 400 mg PO Q8H PRN #30 tablet 02/01/14 Unknown Rx Prednisone [predniSONE 5 mg (6-Day 5 mg PO .TAPER #1 tab.ds.pk 12/10/17 Unknown Rx Pack, 21 Tabs)] Azithromycin [Zithromax Z-GLADIS] 250 mg PO DAILY #6 tab 04/29/18 Unknown Rx Benzonatate [Tessalon Perle] 100 mg PO TID PRN #30 capsule 04/29/18 Unknown Rx Dexamethasone [Decadron] 4 mg PO BID 3 Days #6 tablet 04/29/18 Unknown Rx Ibuprofen 800 mg PO TID PRN #30 tablet 04/29/18 Unknown Rx ALBUTEROL Inhaler (OR & NICU) 2 puff IH QID PRN #1 inhalation 05/27/18 Unknown Rx [ProAir HFA Inhaler] ALBUTEROL NEB's [Proventil 0.083% 2.5 mg IH TID PRN #1 box 05/27/18 Unknown Rx NEBS] Budesonide/Formoterol Fumarate 10.2 gm IH BID #1 hfa.aer.ad 05/27/18 Unknown Rx [Symbicort 160-4.5 Mcg Inhaler] predniSONE [Deltasone] 40 mg PO QDAY 5 Days tab 05/27/18 Unknown Rx ALBUTEROL Inhaler(NF) [VENTOLIN 2 puff IH Q4H PRN #1 inha 07/15/18 Unknown Rx Inhaler(NF)] ALBUTEROL NEB's [Proventil 0.083% 2.5 mg IH Q4H PRN #25 vial 07/15/18 Unknown Rx NEBS] Azithromycin [Zithromax TAB] 250 mg PO DAILY #6 tab 07/15/18 Unknown Rx Benzonatate [Tessalon Perles] 100 mg PO Q8HR PRN #30 capsule 07/15/18 Unknown Rx Ibuprofen 800 mg PO TID PRN #30 tab 07/15/18 Unknown Rx predniSONE [Deltasone] 40 mg PO DAILY 5 Days #10 tablet 07/15/18 Unknown Rx Allergies Allergy/AdvReac Type Severity Reaction Status Date / Time No Known Allergies Allergy Verified 07/15/18 18:36 ED Review of Systems ROS: Stated complaint: ASTHMA/SOB/CHEST PAIN Other details as noted in HPI Constitutional: denies: chills, fever Eyes: denies: eye pain, eye discharge, vision change ENT: congestion. denies: ear pain, throat pain Respiratory: cough, shortness of breath, wheezing Cardiovascular: denies: chest pain, palpitations Endocrine: no symptoms reported Gastrointestinal: denies: abdominal pain, nausea, diarrhea Genitourinary: denies: urgency, dysuria Musculoskeletal: denies: back pain, joint swelling, arthralgia Skin: denies: rash, lesions Neurological: denies: headache, weakness, paresthesias Psychiatric: denies: anxiety, depression Hematological/Lymphatic: denies: easy bleeding, easy bruising ED Past Medical Hx - Past Medical History Hx Asthma: Yes - Social History Smoking Status: Never Smoker Substance Use Type: None - Medications Home Medications: Home Medications Medication Instructions Recorded Confirmed Last Taken Type Acetaminophen/Codeine 1 tab PO Q6H PRN #12 tab 02/01/14 05/20/17 Unknown Rx [Acetaminophen-Codeine #3 TAB] Cyclobenzaprine [Flexeril 10mg] 10 mg PO TID PRN #15 tablet 02/01/14 05/20/17 Unknown Rx Ibuprofen [Motrin 400 MG tab] 400 mg PO Q8H PRN #30 tablet 02/01/14 05/20/17 Unknown Rx Prednisone [predniSONE 5 mg (6-Day 5 mg PO .TAPER #1 tab.ds.pk 09/08/18 Unknown Rx Pack, 21 Tabs)] Azithromycin [Zithromax Z-GLADIS] 250 mg PO DAILY #6 tab 04/29/18 Unknown Rx Benzonatate [Tessalon Perle] 100 mg PO TID PRN #30 capsule 04/29/18 Unknown Rx Dexamethasone [Decadron] 4 mg PO BID 3 Days #6 tablet 04/29/18 Unknown Rx Ibuprofen 800 mg PO TID PRN #30 tablet 04/29/18 Unknown Rx ALBUTEROL Inhaler (OR & NICU) 2 puff IH QID PRN #1 inhalation 05/27/18 Unknown Rx [ProAir HFA Inhaler] ALBUTEROL NEB's [Proventil 0.083% 2.5 mg IH TID PRN #1 box 05/27/18 Unknown Rx NEBS] Budesonide/Formoterol Fumarate 10.2 gm IH BID #1 hfa.aer.ad 05/27/18 Unknown Rx [Symbicort 160-4.5 Mcg Inhaler] predniSONE [Deltasone] 40 mg PO QDAY 5 Days tab 05/27/18 Unknown Rx ALBUTEROL Inhaler(NF) [VENTOLIN 2 puff IH Q4H PRN #1 inha 07/15/18 Unknown Rx Inhaler(NF)] ALBUTEROL NEB's [Proventil 0.083% 2.5 mg IH Q4H PRN #25 vial 07/15/18 Unknown Rx NEBS] Azithromycin [Zithromax TAB] 250 mg PO DAILY #6 tab 07/15/18 Unknown Rx Benzonatate [Tessalon Perles] 100 mg PO Q8HR PRN #30 capsule 07/15/18 Unknown Rx Ibuprofen 800 mg PO TID PRN #30 tab 07/15/18 Unknown Rx predniSONE [Deltasone] 40 mg PO DAILY 5 Days #10 tablet 07/15/18 Unknown Rx ED Physical Exam - General Limitations: No Limitations General appearance: alert, in no apparent distress - Head Head exam: Present: atraumatic, normocephalic - Eye Eye exam: Present: normal appearance, PERRL, EOMI Pupils: Present: normal accommodation - ENT ENT exam: Present: mucous membranes moist. Absent: normal orophraynx, TM's normal bilaterally, normal external ear exam - Neck Neck exam: Present: normal inspection, full ROM. Absent: tenderness, lymphadenopathy, thyromegaly - Respiratory Respiratory exam: Present: wheezes. Absent: stridor, chest wall tenderness, prolonged expiratory - Cardiovascular Cardiovascular Exam: Present: regular rate, normal rhythm, normal heart sounds. Absent: systolic murmur, diastolic murmur, rubs, gallop - GI/Abdominal GI/Abdominal exam: Present: soft, normal bowel sounds. Absent: distended, r ebound, bruit, hernia - Rectal Rectal exam: Present: deferred - Extremities Exam Extremities exam: Present: normal inspection, full ROM, normal capillary refill. Absent: tenderness - Back Exam Back exam: Present: normal inspection, full ROM. Absent: tenderness, rash noted - Neurological Exam Neurological exam: Present: alert, oriented X3, CN II-XII intact, normal gait. Absent: motor sensory deficit, reflexes normal - Psychiatric Psychiatric exam: Present: normal affect, normal mood - Skin Skin exam: Present: warm, dry, intact, normal color. Absent: rash ED Course Vital Signs 07/15/18 07/15/18 18:56 19:10 Temperature 98.3 F Pulse Rate 66 Pulse Rate [ 104 H Anterior Bilateral Throughout] Respiratory 20 Rate Respiratory 16 Rate [Anterior Bilateral Throughout] Blood Pressure 101/71 O2 Sat by Pulse 97 Oximetry ED Medical Decision Making - Medical Decision Making symptoms improved wheezing improved pt is ambulatory around ED and back to room without increased sob pt is eating evening meal at this time without diffiiculty. pt will follow up with pcp in 2-3 days pt verbalized agreement and understanding of same. Critical care attestation.: If time is entered above; I have spent that time in minutes in the direct care of this critically ill patient, excluding procedure time. ED Disposition Clinical Impression: Asthma exacerbation Qualifiers: Asthma severity: moderate Asthma persistence: persistent Qualified Code(s): J45.41 - Moderate persistent asthma with (acute) exacerbation Disposition: TO HOME OR SELFCARE Is pt being admited?: No Does the pt Need Aspirin: No Condition: Stable Instructions: Asthma (ED), Chronic Bronchitis (ED) Prescriptions: predniSONE [Deltasone] 40 mg PO DAILY 5 Days #10 tablet Ibuprofen 800 mg PO TID PRN #30 tab PRN Reason: pain fever ALBUTEROL NEB's [Proventil 0.083% NEBS] 2.5 mg IH Q4H PRN #25 vial PRN Reason: shortness of breath wheezing Benzonatate [Tessalon Perles] 100 mg PO Q8HR PRN #30 capsule PRN Reason: Cough ALBUTEROL Inhaler(NF) [VENTOLIN Inhaler(NF)] 2 puff IH Q4H PRN #1 inha PRN Reason: shortness of breath wheezing Azithromycin [Zithromax TAB] 250 mg PO DAILY #6 tab Referrals: [facility] [Outside] - 3-5 Days Forms: Work/School Release Form(ED) Time of Disposition: 21:24
[2018-07-15 21:35] VITALS: BP 107/69
== END 2018-07-15 21:34 | disposition home or self-care (01) ==
LOC: ED 18:35
DX: J45.41 Moderate persistent asthma with (acute) exacerbation (principal)
CPT/HCPCS: 99283; J7512

== ENCOUNTER 2018-08-06 12:02 | Emergency (ER) | payer SELFPAY ==
[2018-08-06] MEDS ORDERED: DUONEB *Not for PRN Use IH ONE (12:07)
--- NOTE | 2018-08-06 14:10 | XRay Report ---
PROCEDURE: XR CHEST ROUTINE 2V TECHNIQUE: PA and lateral chest HISTORY: SOB/asthma exacerbation COMPARISONS: Chest x-ray April 29, 2018 FINDINGS: Trachea midline. Heart size normal. No pneumothorax. No effusion. No acute airspace disease. Hyperexpansion appears less prominent than p rior study Slight dextroscoliosis. IMPRESSION: No acute pulmonary disease. This document is electronically signed by Jonathan Seo MD., Aug 06 2018 02:09:12 PM ET
[2018-08-06] MEDS ORDERED: PROVENTIL IH ONE (16:19)
[2018-08-06] MEDS ORDERED: ATROVENT IH ONE (16:20)
[2018-08-06] MEDS ORDERED: DECADRON IM ONE (16:21)
--- NOTE | 2018-08-06 18:16 | Emergency Department Report ---
ED Asthma HPI - General Chief Complaint: Adult Asthma Stated Complaint: ASTHMA/COLD SYM Time Seen by Provider: 08/06/18 15:16 Source: patient Mode of arrival: Ambulatory Limitations: No Limitations - History of Present Illness Initial Comments: This is a 38-year-old male nontoxic, well nourished in appearance, no acute signs of distress presents to the ED with c/o of acute on chronic asthma exacerbation. Patient denies any cough. Patient denies any sick contact. Patient denies any recent travels, long car, recent hospital stays. Patient denies any calf pain or calf tenderness. Patient denies any chest pain, short of breath, fever, chills, nausea, vomiting, hemoptysis, numbness, tingling, headache or stiff neck. Past medical history includes asthma. MD Complaint: "asthma attack", shortness of breath, wheezing -: days(s) (1) Asthma History: childhood onset Severity: mild Context: none known Associated Symptoms: none Treatments Prior to Arrival: inhaled bronchodilator - Related Data Current Asthma Therapy: none Previous Rx's Medication Instructions Recorded Last Taken Type Acetaminophen/Codeine 1 tab PO Q6H PRN #12 tab 02/01/14 Unknown Rx [Acetaminophen-Codeine #3 TAB] Cyclobenzaprine [Flexeril 10mg] 10 mg PO TID PRN #15 tablet 02/01/14 Unknown Rx Ibuprofen [Motrin 400 MG tab] 400 mg PO Q8H PRN #30 tablet 02/01/14 Unknown Rx Prednisone [predniSONE 5 mg (6-Day 5 mg PO .TAPER #1 tab.ds.pk 12/10/17 Unknown Rx Pack, 21 Tabs)] Azithromycin [Zithromax Z-GLADIS] 250 mg PO DAILY #6 tab 04/29/18 Unknown Rx Benzonatate [Tessalon Perle] 100 mg PO TID PRN #30 capsule 04/29/18 Unknown Rx Dexamethasone [Decadron] 4 mg PO BID 3 Days #6 tablet 04/29/18 Unknown Rx Ibuprofen 800 mg PO TID PRN #30 tablet 04/29/18 Unknown Rx ALBUTEROL Inhaler (OR & NICU) 2 puff IH QID PRN #1 inhalation 05/27/18 Unknown Rx [ProAir HFA Inhaler] ALBUTEROL NEB's [Proventil 0.083% 2.5 mg IH TID PRN #1 box 05/27/18 Unknown Rx NEBS] Budesonide/Formoterol Fumarate 10.2 gm IH BID #1 hfa.aer.ad 05/27/18 Unknown Rx [Symbicort 160-4.5 Mcg Inhaler] predniSONE [Deltasone] 40 mg PO QDAY 5 Days tab 05/27/18 Unknown Rx ALBUTEROL Inhaler(NF) [VENTOLIN 2 puff IH Q4H PRN #1 inha 07/15/18 Unknown Rx Inhaler(NF)] ALBUTEROL NEB's [Proventil 0.083% 2.5 mg IH Q4H PRN #25 vial 07/15/18 Unknown Rx NEBS] Azithromycin [Zithromax TAB] 250 mg PO DAILY #6 tab 07/15/18 Unknown Rx Benzonatate [Tessalon Perles] 100 mg PO Q8HR PRN #30 capsule 07/15/18 Unknown Rx Ibuprofen 800 mg PO TID PRN #30 tab 07/15/18 Unknown Rx predniSONE [Deltasone] 40 mg PO DAILY 5 Days #10 tablet 07/15/18 Unknown Rx ALBUTEROL Inhaler(NF) [VENTOLIN 2 puff IH Q4-6H PRN #1 inha 08/06/18 Unknown Rx Inhaler(NF)] ALBUTEROL NEB's [Proventil 0.083% 2.5 mg IH TID PRN #1 box 08/06/18 Unknown Rx NEBS] Prednisone [predniSONE 10 mg 10 mg PO .TAPER #1 tab.ds.pk 08/06/18 Unknown Rx (6-Day Pack, 21 Tabs)] Allergies Allergy/AdvReac Type Severity Reaction Status Date / Time No Known Allergies Allergy Verified 07/15/18 18:36 ED Review of Systems ROS: Stated complaint: ASTHMA/COLD SYM Other details as noted in HPI Constitutional: denies: chills, fever Eyes: denies: eye pain, eye discharge, vision change ENT: denies: ear pain, throat pain Respiratory: shortness of breath, wheezing. denies: cough Cardiovascular: denies: chest pain, palpitations Endocrine: no symptoms reported Gastrointestinal: denies: abdominal pain, nausea, diarrhea Genitourinary: denies: urgency, dysuria Musculoskeletal: denies: back pain, joint swelling, arthralgia Skin: denies: rash, lesions Neurological: denies: headache, weakness, paresthesias Psychiatric: denies: anxiety, depression Hematological/Lymphatic: denies: easy bleeding, easy bruising ED Past Medical Hx - Past Medical History Previous Medical History?: Yes Hx Asthma: Yes - Surgical History Past Surgical History?: No - Social History Smoking Status: Never Smoker Substance Use Type: None - Medications Home Medications: Home Medications Medication Instructions Recorded Confirmed Last Taken Type Acetaminophen/Codeine 1 tab PO Q6H PRN #12 tab 02/01/14 05/20/17 Unknown Rx [Acetaminophen-Codeine #3 TAB] Cyclobenzaprine [Flexeril 10mg] 10 mg PO TID PRN #15 tablet 02/01/14 05/20/17 Unknown Rx Ibuprofen [Motrin 400 MG tab] 400 mg PO Q8H PRN #30 tablet 02/01/14 05/20/17 Unknown Rx Prednisone [predniSONE 5 mg (6-Day 5 mg PO .TAPER #1 tab.ds.pk 12/10/17 Unknown Rx Pack, 21 Tabs)] Azithromycin [Zithromax Z-GLADIS] 250 mg PO DAILY #6 tab 04/29/18 Unknown Rx Benzonatate [Tessalon Perle] 100 mg PO TID PRN #30 capsule 04/29/18 Unknown Rx Dexamethasone [Decadron] 4 mg PO BID 3 Days #6 tablet 04/29/18 Unknown Rx Ibuprofen 800 mg PO TID PRN #30 tablet 04/29/18 Unknown Rx ALBUTEROL Inhaler (OR & NICU) 2 puff IH QID PRN #1 inhalation 05/27/18 Unknown Rx [ProAir HFA Inhaler] ALBUTEROL NEB's [Proventil 0.083% 2.5 mg IH TID PRN #1 box 05/27/18 Unknown Rx NEBS] Budesonide/Formoterol Fumarate 10.2 gm IH BID #1 hfa.aer.ad 05/27/18 Unknown Rx [Symbicort 160-4.5 Mcg Inhaler] predniSONE [Deltasone] 40 mg PO QDAY 5 Days tab 05/27/18 Unknown Rx ALBUTEROL Inhaler(NF) [VENTOLIN 2 puff IH Q4H PRN #1 inha 07/15/18 Unknown Rx Inhaler(NF)] ALBUTEROL NEB's [Proventil 0.083% 2.5 mg IH Q4H PRN #25 vial 07/15/18 Unknown Rx NEBS] Azithromycin [Zithromax TAB] 250 mg PO DAILY #6 tab 07/15/18 Unknown Rx Benzonatate [Tessalon Perles] 100 mg PO Q8HR PRN #30 capsule 07/15/18 Unknown Rx Ibuprofen 800 mg PO TID PRN #30 tab 07/15/18 Unknown Rx predniSONE [Deltasone] 40 mg PO DAILY 5 Days #10 tablet 07/15/18 Unknown Rx ALBUTEROL Inhaler(NF) [VENTOLIN 2 puff IH Q4-6H PRN #1 inha 08/06/18 Unknown Rx Inhaler(NF)] ALBUTEROL NEB's [Proventil 0.083% 2.5 mg IH TID PRN #1 box 08/06/18 Unknown Rx NEBS] Prednisone [predniSONE 10 mg 10 mg PO .TAPER #1 tab.ds.pk 08/06/18 Unknown Rx (6-Day Pack, 21 Tabs)] ED Physical Exam - General Limitations: No Limitations General appearance: alert, in no apparent distress - Head Head exam: Present: atraumatic, normocephalic - Neck Neck exam: Present: normal inspection, full ROM. Absent: tenderness, meningismus, lymphadenopathy - Respiratory Respiratory exam: Present: normal lung sounds bilaterally, wheezes (bilateral upper and lower lobes). Absent: respiratory distress, rales, rhonchi, stridor, chest wall tenderness, accessory muscle use, decreased breath sounds, prolonged expiratory - Cardiovascular Cardiovascular Exam: Present: regular rate, normal rhythm, normal heart sounds. Absent: irregular rhythm, systolic murmur, diastolic murmur, rubs, gallop - Extremities Exam Extremities exam: Present: normal inspection, full ROM - Back Exam Back exam: Present: normal inspection, full ROM - Neurological Exam Neurological exam: Present: alert, oriented X3 - Psychiatric Psychiatric exam: Present: normal affect, normal mood - Skin Skin exam: Present: warm, dry, intact, normal color. Absent: rash ED Course Vital Signs 08/06/18 08/06/18 12:21 17:06 Temperature 97.9 F Pulse Rate 97 H 108 H Respiratory 20 18 Rate Blood Pressure 113/89 Blood Pressure 146/76 [Left] O2 Sat by Pulse 99 95 Oximetry - Reevaluation(s) Reevaluation #1: 08/06/18 18:14 Patient is speaking in full sentences with no signs of distress noted. ED Medical Decision Making - Medical Decision Making This is a 38-year-old male that presents with asthma exacerbation. Patient is stable and was examined by me. Chest x-ray has been obtained and dictated by the radiologist within normal limits. Patient is notified of the x-ray report with no questions noted by the patient. Patient did receive breathing and steroids in the ED which patient the symptoms has resolved and subsided. Posttreatment and there is no wheezing upon auscultation. Patient is discharged with albuterol and prednisone. Patient was referred to Follow-up with a primary care doctor in 3-5 days or if symptoms worsen and continue return to emergency room as soon as possible. At time of discharge, the patient does not seem toxic or ill in appearance. No acute signs of distress noted. Patient agrees to discharge treatment plan of care. No further questions noted by the p atient. This chart is dictated with using [employer] Critical care attestation.: If time is entered above; I have spent that time in minutes in the direct care of this critically ill patient, excluding procedure time. ED Disposition Clinical Impression: Asthma exacerbation Qualifiers: Asthma severity: mild Asthma persistence: intermittent Qualified Code(s): J45.21 - Mild intermittent asthma with (acute) exacerbation Disposition: DC-01 TO HOME OR SELFCARE Is pt being admited?: No Does the pt Need Aspirin: No Condition: Stable Instructions: Asthma (ED) Additional Instructions: Follow-up with a primary care doctor in 3-5 days or if symptoms worsen and continue return to emergency room as soon as possible. Prescriptions: Prednisone [predniSONE 10 mg (6-Day Pack, 21 Tabs)] 10 mg PO .TAPER #1 tab.ds.pk ALBUTEROL NEB's [Proventil 0.083% NEBS] 2.5 mg IH TID PRN #1 box PRN Reason: Wheezing ALBUTEROL Inhaler(NF) [VENTOLIN Inhaler(NF)] 2 puff IH Q4-6H PRN #1 inha PRN Reason: Wheezing Referrals: PRIMARY CARE, [Primary Care Provider] - 3-5 Days JYOTHI SWAIN MD [Staff Physician] - 3-5 Days [facility] [Outside] - 3-5 Days [facility] [Outside] - 3-5 Days Forms: Work/School Release Form(ED)
[2018-08-06 18:26] VITALS: BP 107/72
== END 2018-08-06 18:26 | disposition home or self-care (01) ==
LOC: ED 12:02
DX: J45.901 Unspecified asthma with (acute) exacerbation (principal)
CPT/HCPCS: 71046; 94640; 96372; 99284; J1100

== ENCOUNTER 2018-09-14 08:33 | Emergency (ER) | payer SELFPAY ==
[2018-09-14] MEDS ORDERED: DUONEB *Not for PRN Use IH ONE ×2 (08:39→09:29)
--- NOTE | 2018-09-14 09:07 | XRay Report ---
CHEST TWO VIEWS: 09/14/18 08:33:00 CLINICAL: Asthma exacerbation COMPARISON: 08/06/18 FINDINGS: Normal heart and pulmonary vasculature. The lungs are hyperexpanded and hyperlucent. No airspace disease or pleural effusion. No tubes or lines. The bones and soft tissues are normal. IMPRESSION: Pulmonary hyperinflation and otherwise normal.No change since the prior exam.
[2018-09-14] MEDS ORDERED: DECADRON IV ONE (09:26)
--- NOTE | 2018-09-14 09:28 | Emergency Department Report ---
ED Asthma HPI - General Chief Complaint: Adult Asthma Stated Complaint: ASTHMA/SOB Source: patient Mode of arrival: Ambulatory Limitations: No Limitations - History of Present Illness Initial Comments: This is a 38-year-old -[place]ag[place] male who presents to emergency room with shortness of breath and chest tightness that started last night. Past medical history of asthma. Patient states he used his albuterol inhaler and nebulized solution with no improvement of symptoms. Reports symptomatically only when leaning forward in a tripod position. Patient is a nonsmoker. He denies fever, cough, rhinorrhea, coryza, or myalgia. MD Complaint: "asthma attack", shortness of breath, wheezing -: This morning Asthma History: childhood onset Severity: moderate, similar to prior Context: smoke exposure Associated Symptoms: none Treatments Prior to Arrival: inhaled steroid - Related Data Current Asthma Therapy: inhaled steroid Previous Rx's Medication Instructions Recorded Last Taken Type Acetaminophen/Codeine 1 tab PO Q6H PRN #12 tab 02/01/14 Unknown Rx [Acetaminophen-Codeine #3 TAB] Cyclobenzaprine [Flexeril 10mg] 10 mg PO TID PRN #15 tablet 02/01/14 Unknown Rx Ibuprofen [Motrin 400 MG tab] 400 mg PO Q8H PRN #30 tablet 02/01/14 Unknown Rx Prednisone [predniSONE 5 mg (6-Day 5 mg PO .TAPER #1 tab.ds.pk 12/10/17 Unknown Rx Pack, 21 Tabs)] Azithromycin [Zithromax Z-GLADIS] 250 mg PO DAILY #6 tab 04/29/18 Unknown Rx Benzonatate [Tessalon Perle] 100 mg PO TID PRN #30 capsule 04/29/18 Unknown Rx Ibuprofen [Ibuprofen 800] 800 mg PO TID PRN #30 tablet 04/29/18 Unknown Rx dexAMETHasone [Decadron] 4 mg PO BID 3 Days #6 tablet 04/29/18 Unknown Rx ALBUTEROL Inhaler (OR & NICU) 2 puff IH QID PRN #1 inhalation 05/27/18 Unknown Rx [ProAir HFA Inhaler] ALBUTEROL NEB's [Proventil 0.083% 2.5 mg IH TID PRN #1 box 05/27/18 Unknown Rx NEBS] predniSONE [Deltasone] 40 mg PO QDAY 5 Days tab 05/27/18 Unknown Rx ALBUTEROL Inhaler(NF) [VENTOLIN 2 puff IH Q4H PRN #1 inha 07/15/18 Unknown Rx Inhaler(NF)] ALBUTEROL NEB's [Proventil 0.083% 2.5 mg IH Q4H PRN #25 vial 07/15/18 Unknown Rx NEBS] Azithromycin [Zithromax TAB] 250 mg PO DAILY #6 tab 07/15/18 Unknown Rx Benzonatate [Tessalon Perles] 100 mg PO Q8HR PRN #30 capsule 07/15/18 Unknown Rx Ibuprofen [Ibuprofen 800] 800 mg PO TID PRN #30 tab 07/15/18 Unknown Rx predniSONE [Deltasone] 40 mg PO DAILY 5 Days #10 tablet 07/15/18 Unknown Rx ALBUTEROL Inhaler(NF) [VENTOLIN 2 puff IH Q4-6H PRN #1 inha 08/06/18 Unknown Rx Inhaler(NF)] ALBUTEROL NEB's [Proventil 0.083% 2.5 mg IH TID PRN #1 box 08/06/18 Unknown Rx NEBS] Prednisone [predniSONE 10 mg 10 mg PO .TAPER #1 tab.ds.pk 08/06/18 Unknown Rx (6-Day Pack, 21 Tabs)] ALBUTEROL Inhaler (OR & NICU) 2 puff IH QID PRN #1 inhalation 09/14/18 Unknown Rx [ProAir HFA Inhaler] Budesonide/Formoterol Fumarate 10.2 gm IH BID #1 hfa.aer.ad 09/14/18 Unknown Rx [Symbicort 160-4.5 Mcg Inhaler] Prednisone [predniSONE 10 mg 10 mg PO .TAPER #1 tab.ds.pk 09/14/18 Unknown Rx (6-Day Pack, 21 Tabs)] Allergies Allergy/AdvReac Type Severity Reaction Status Date / Time No Known Allergies Allergy Verified 07/15/18 18:36 ED Review of Systems ROS: Stated complaint: ASTHMA/SOB Other details as noted in HPI Constitutional: denies: chills, fever ENT: denies: ear pain, throat pain, congestion Respiratory: shortness of breath, SOB with exertion. denies: cough, wheezing Cardiovascular: denies: chest pain, palpitations Gastrointestinal: denies: abdominal pain, nausea, diarrhea Skin: denies: rash, lesions Neurological: denies: headache, weakness, paresthesias Psychiatric: denies: anxiety, depression ED Past Medical Hx - Past Medical History Previous Medical History?: Yes Hx Asthma: Yes - Social History Smoking Status: Never Smoker Substance Use Type: None - Medications Home Medications: Home Medications Medication Instructions Recorded Confirmed Last Taken Type Acetaminophen/Codeine 1 tab PO Q6H PRN #12 tab 02/01/14 05/20/17 Unknown Rx [Acetaminophen-Codeine #3 TAB] Cyclobenzaprine [Flexeril 10mg] 10 mg PO TID PRN #15 tablet 02/01/14 05/20/17 Unknown Rx Ibuprofen [Motrin 400 MG tab] 400 mg PO Q8H PRN #30 tablet 02/01/14 05/20/17 Unknown Rx Prednisone [predniSONE 5 mg (6-Day 5 mg PO .TAPER #1 tab.ds.pk 12/10/17 Unknown Rx Pack, 21 Tabs)] Azithromycin [Zithromax Z-GLADIS] 250 mg PO DAILY #6 tab 04/29/18 Unknown Rx Benzonatate [Tessalon Perle] 100 mg PO TID PRN #30 capsule 04/29/18 Unknown Rx Ibuprofen [Ibuprofen 800] 800 mg PO TID PRN #30 tablet 04/29/18 Unknown Rx dexAMETHasone [Decadron] 4 mg PO BID 3 Days #6 tablet 04/29/18 Unknown Rx ALBUTEROL Inhaler (OR & NICU) 2 puff IH QID PRN #1 inhalation 05/27/18 Unknown Rx [ProAir HFA Inhaler] ALBUTEROL NEB's [Proventil 0.083% 2.5 mg IH TID PRN #1 box 05/27/18 Unknown Rx NEBS] predniSONE [Deltasone] 40 mg PO QDAY 5 Days tab 05/27/18 Unknown Rx ALBUTEROL Inhaler(NF) [VENTOLIN 2 puff IH Q4H PRN #1 inha 07/15/18 Unknown Rx Inhaler(NF)] ALBUTEROL NEB's [Proventil 0.083% 2.5 mg IH Q4H PRN #25 vial 07/15/18 Unknown Rx NEBS] Azithromycin [Zithromax TAB] 250 mg PO DAILY #6 tab 07/15/18 Unknown Rx Benzonatate [Tessalon Perles] 100 mg PO Q8HR PRN #30 capsule 07/15/18 Unknown Rx Ibuprofen [Ibuprofen 800] 800 mg PO TID PRN #30 tab 07/15/18 Unknown Rx predniSONE [Deltasone] 40 mg PO DAILY 5 Days #10 tablet 07/15/18 Unknown Rx ALBUTEROL Inhaler(NF) [VENTOLIN 2 puff IH Q4-6H PRN #1 inha 08/06/18 Unknown Rx Inhaler(NF)] ALBUTEROL NEB's [Proventil 0.083% 2.5 mg IH TID PRN #1 box 08/06/18 Unknown Rx NEBS] Prednisone [predniSONE 10 mg 10 mg PO .TAPER #1 tab.ds.pk 08/06/18 Unknown Rx (6-Day Pack, 21 Tabs)] ALBUTEROL Inhaler (OR & NICU) 2 puff IH QID PRN #1 inhalation 09/14/18 Unknown Rx [ProAir HFA Inhaler] Budesonide/Formoterol Fumarate 10.2 gm IH BID #1 hfa.aer.ad 09/14/18 Unknown Rx [Symbicort 160-4.5 Mcg Inhaler] Prednisone [predniSONE 10 mg 10 mg PO .TAPER #1 tab.ds.pk 09/14/18 Unknown Rx (6-Day Pack, 21 Tabs)] ED Physical Exam - General Limitations: No Limitations General appearance: alert, in no apparent distress - Respiratory Respiratory exam: Present: wheezes. Absent: rales, stridor, chest wall tenderness, prolonged expiratory - Cardiovascular Cardiovascular Exam: Present: regular rate, normal rhythm. Absent: systolic murmur, diastolic murmur, rubs, gallop - GI/Abdominal GI/Abdominal exam: Present: soft, normal bowel sounds - Neurological Exam Neurological exam: Present: alert, oriented X3 - Psychiatric Psychiatric exam: Present: normal affect, normal mood - Skin Skin exam: Present: warm, dry, intact, normal color. Absent: rash ED Course Vital Signs 09/14/18 09/14/18 08:38 11:42 Temperature 98.1 F Pulse Rate 97 H 87 Respiratory 20 20 Rate Blood Pressure 121/85 O2 Sat by Pulse 98 98 Oximetry ED Medical Decision Making - Radiology Data Radiology results: report reviewed CHEST TWO VIEWS: 09/14/18 08:33:00 CLINICAL: Asthma exacerbation COMPARISON: 08/06/18 FINDINGS: Normal heart and pulmonary vasculature. The lungs are hyperexpanded and hyperlucent. No airspace disease or pleural effusion. No tubes or lines. The bones and soft tissues are normal. IMPRESSION: Pulmonary hyperinflation and otherwise normal.No change since the prior exam. - Medical Decision Making This patient was examined by this provider. History of Asthma. [place] dissolves treated asthma. Patient examined by me and in slight distress. Vitals stable. Chest x-ray obtained and dictated by radiologist. Pulmonary hyperinflation and otherwise normal. No change since the prior exam. Given duoneb treatment twice, magnesium 1 g IV, ipratropium once, and dexamethasone 10 mg IV one in ER. Wheezes resolved. Asthma exacerbation, Start albuterol and prednisone taper. Discharged home stable. Return to work tomorrow. Critical care attestation.: If time is entered above; I have spent that time in minutes in the direct care of this critically ill patient, excluding procedure time. ED Disposition Clinical Impression: Shortness of breath, Wheezing on auscultation Asthma attack Qualifiers: Asthma severity: mild Asthma persistence: intermittent Qualified Code(s): J45.21 - Mild intermittent asthma with (acute) exacerbation Disposition: - TO HOME OR SELFCARE Is pt being admited?: No Does the pt Need Aspirin: No Condition: Stable Instructions: Asthma (ED) Additional Instructions: It is important to use inhaler or have active albuterol inhaler and avoiding asthma triggers. Complete full course of prednisone steroids as prescribed. Follow up with Primary Care Provider in 24-72 hours. Prescriptions: Prednisone [predniSONE 10 mg (6-Day Pack, 21 Tabs)] 10 mg PO .TAPER #1 tab.ds.pk ALBUTEROL Inhaler (OR & NICU) [ProAir HFA Inhaler] 2 puff IH QID PRN #1 inhalation PRN Reason: Shortness Of Breath Budesonide/Formoterol Fumarate [Symbicort 160-4.5 Mcg Inhaler] 10.2 gm IH BID #1 hfa.aer.ad Referrals: SHIRA JAVIER MD [Primary Care Provider] - 3-5 Days [facility] [Outside] - 3-5 Days [facility] [Outside] - 3-5 Days Forms: Work/School Release Form(ED) Time of Disposition: 12:22
[2018-09-14] MEDS ORDERED: MAGNESIUM SULFATE 1 GM in NACL 0.9% 50 ML IV ONE (10:00)
[2018-09-14] MEDS ORDERED: ATROVENT IH ONE (11:41)
[2018-09-14 12:52] VITALS: BP 102/72
== END 2018-09-14 12:52 | disposition home or self-care (01) ==
LOC: ED 08:33
DX: J45.21 Mild intermittent asthma with (acute) exacerbation (principal)
CPT/HCPCS: 71046; 94640; 96365; 96375; 99284; J1100; J3475

== ENCOUNTER 2018-10-02 13:59 | Emergency (ER) | payer OTHER ==
[2018-10-02] MEDS ORDERED: ATROVENT IH ONE (14:18)
[2018-10-02] MEDS ORDERED: PROVENTIL IH ONE (14:18)
[2018-10-02] MEDS ORDERED: ADRENALINE P/F SUB-Q ONE (14:18)
[2018-10-02] MEDS ORDERED: NACL 0.9% 1000 ML 1,000 ML IV ONE ×2 (14:18→14:19)
[2018-10-02] MEDS ORDERED: MAGNESIUM SULFATE 2GM/50ML 2 GM/50 ML BAG IV ONE (14:18)
--- NOTE | 2018-10-02 14:23 | Emergency Department Report ---
ED Asthma HPI - General Chief Complaint: Dyspnea/Respdistress Stated Complaint: ASTHMA Time Seen by Provider: 10/02/18 14:14 Source: patient, EMS (ems notes not available at time of chart dictation), RN notes reviewed, old records reviewed Mode of arrival: Wheelchair Limitations: Physical Limitation - History of Present Illness Initial Comments: This is a 38-year-old gentleman. The patient is not known to this provider previously. He does not have a primary care doctor or county director. He is a past medical history of asthma. He reports one lifetime admission, one lifetime intubation. Patient reports childhood onset of asthma. Patient presents to the ER today with a complaint of spontaneous nontraumatic severe asthma exacerbation. He believes triggers include working outside. Complains of cough, wheezing, shortness of breath. He is given Decadron and nebulizer therapy in the field. He thinks that this is a moderately intense asthma exacerbation for him. He denies physical pain, with the exception of right- sided ankle pain. The patient endorses no DVT or pulmonary embolus risk factors. MD Complaint: "asthma attack", shortness of breath, wheezing -: Sudden, hour(s) Asthma History: childhood onset, history of frequent attac, history of prior ED visit Severity: severe Context: allergen exposure - Related Data Previous Rx's Medication Instructions Recorded Last Taken Type Acetaminophen/Codeine 1 tab PO Q6H PRN #12 tab 02/01/14 Unknown Rx [Acetaminophen-Codeine #3 TAB] Cyclobenzaprine [Flexeril 10mg] 10 mg PO TID PRN #15 tablet 02/01/14 Unknown Rx Ibuprofen [Motrin 400 MG tab] 400 mg PO Q8H PRN #30 tablet 02/01/14 Unknown Rx Prednisone [predniSONE 5 mg (6-Day 5 mg PO .TAPER #1 tab.ds.pk 12/10/17 Unknown Rx Pack, 21 Tabs)] Azithromycin [Zithromax Z-GLADIS] 250 mg PO DAILY #6 tab 04/29/18 Unknown Rx Benzonatate [Tessalon Perle] 100 mg PO TID PRN #30 capsule 04/29/18 Unknown Rx Ibuprofen [Ibuprofen 800] 800 mg PO TID PRN #30 tablet 04/29/18 Unknown Rx dexAMETHasone [Decadron] 4 mg PO BID 3 Days #6 tablet 04/29/18 Unknown Rx ALBUTEROL Inhaler (OR & NICU) 2 puff IH QID PRN #1 inhalation 05/27/18 Unknown Rx [ProAir HFA Inhaler] ALBUTEROL NEB's [Proventil 0.083% 2.5 mg IH TID PRN #1 box 05/27/18 Unknown Rx NEBS] predniSONE [Deltasone] 40 mg PO QDAY 5 Days tab 05/27/18 Unknown Rx ALBUTEROL Inhaler(NF) [VENTOLIN 2 puff IH Q4H PRN #1 inha 07/15/18 Unknown Rx Inhaler(NF)] ALBUTEROL NEB's [Proventil 0.083% 2.5 mg IH Q4H PRN #25 vial 07/15/18 Unknown Rx NEBS] Azithromycin [Zithromax TAB] 250 mg PO DAILY #6 tab 07/15/18 Unknown Rx Benzonatate [Tessalon Perles] 100 mg PO Q8HR PRN #30 capsule 07/15/18 Unknown Rx Ibuprofen [Ibuprofen 800] 800 mg PO TID PRN #30 tab 07/15/18 Unknown Rx predniSONE [Deltasone] 40 mg PO DAILY 5 Days #10 tablet 07/15/18 Unknown Rx ALBUTEROL Inhaler(NF) [VENTOLIN 2 puff IH Q4-6H PRN #1 inha 08/06/18 Unknown Rx Inhaler(NF)] ALBUTEROL NEB's [Proventil 0.083% 2.5 mg IH TID PRN #1 box 08/06/18 Unknown Rx NEBS] Prednisone [predniSONE 10 mg 10 mg PO .TAPER #1 tab.ds.pk 08/06/18 Unknown Rx (6-Day Pack, 21 Tabs)] ALBUTEROL Inhaler (OR & NICU) 2 puff IH QID PRN #1 inhalation 09/14/18 Unknown Rx [ProAir HFA Inhaler] Budesonide/Formoterol Fumarate 10.2 gm IH BID #1 hfa.aer.ad 09/14/18 Unknown Rx [Symbicort 160-4.5 Mcg Inhaler] Prednisone [predniSONE 10 mg 10 mg PO .TAPER #1 tab.ds.pk 09/14/18 Unknown Rx (6-Day Pack, 21 Tabs)] Albuterol Sulfate [Albuterol 0.63% 0.63 mg IH Q4HR PRN #2 ml 10/02/18 Unknown Rx NEBS] Albuterol Sulfate [Proair 90 mcg IH Q4HR PRN #2 aer.pow.ba 10/02/18 Unknown Rx Respiclick] Prednisone [predniSONE 10 mg 10 mg PO .TAPER #1 tab.ds.pk 10/02/18 Unknown Rx (6-Day Pack, 21 Tabs)] Allergies Allergy/AdvReac Type Severity Reaction Status Date / Time No Known Allergies Allergy Verified 07/15/18 18:36 ED Review of Systems ROS: Stated complaint: ASTHMA Other details as noted in HPI Constitutional: denies: fever Eyes: denies: eye discharge ENT: congestion Respiratory: shortness of breath, SOB with exertion, SOB at rest, wheezing Cardiovascular: denies: syncope Gastrointestinal: denies: abdominal pain Genitourinary: denies: dysuria Musculoskeletal: arthralgia (chronic right sided ankle) Skin: denies: lesions Neurological: weakness Psychiatric: anxiety ED Past Medical Hx - Past Medical History Hx Asthma: Yes - Social History Smoking Status: Never Smoker Substance Use Type: Alcohol - Medications Home Medications: Home Medications Medication Instructions Recorded Confirmed Last Taken Type Acetaminophen/Codeine 1 tab PO Q6H PRN #12 tab 02/01/14 05/20/17 Unknown Rx [Acetaminophen-Codeine #3 TAB] Cyclobenzaprine [Flexeril 10mg] 10 mg PO TID PRN #15 tablet 02/01/14 05/20/17 Unknown Rx Ibuprofen [Motrin 400 MG tab] 400 mg PO Q8H PRN #30 tablet 02/01/14 05/20/17 Unknown Rx Prednisone [predniSONE 5 mg (6-Day 5 mg PO .TAPER #1 tab.ds.pk 12/10/17 Unknown Rx Pack, 21 Tabs)] Azithromycin [Zithromax Z-GLADIS] 250 mg PO DAILY #6 tab 04/29/18 Unknown Rx Benzonatate [Tessalon Perle] 100 mg PO TID PRN #30 capsule 04/29/18 Unknown Rx Ibuprofen [Ibuprofen 800] 800 mg PO TID PRN #30 tablet 04/29/18 Unknown Rx dexAMETHasone [Decadron] 4 mg PO BID 3 Days #6 tablet 04/29/18 Unknown Rx ALBUTEROL Inhaler (OR & NICU) 2 puff IH QID PRN #1 inhalation 05/27/18 Unknown Rx [ProAir HFA Inhaler] ALBUTEROL NEB's [Proventil 0.083% 2.5 mg IH TID PRN #1 box 05/27/18 Unknown Rx NEBS] predniSONE [Deltasone] 40 mg PO QDAY 5 Days tab 05/27/18 Unknown Rx ALBUTEROL Inhaler(NF) [VENTOLIN 2 puff IH Q4H PRN #1 inha 07/15/18 Unknown Rx Inhaler(NF)] ALBUTEROL NEB's [Proventil 0.083% 2.5 mg IH Q4H PRN #25 vial 07/15/18 Unknown Rx NEBS] Azithromycin [Zithromax TAB] 250 mg PO DAILY #6 tab 07/15/18 Unknown Rx Benzonatate [Tessalon Perles] 100 mg PO Q8HR PRN #30 capsule 07/15/18 Unknown Rx Ibuprofen [Ibuprofen 800] 800 mg PO TID PRN #30 tab 07/15/18 Unknown Rx predniSONE [Deltasone] 40 mg PO DAILY 5 Days #10 tablet 07/15/18 Unknown Rx ALBUTEROL Inhaler(NF) [VENTOLIN 2 puff IH Q4-6H PRN #1 inha 08/06/18 Unknown Rx Inhaler(NF)] ALBUTEROL NEB's [Proventil 0.083% 2.5 mg IH TID PRN #1 box 08/06/18 Unknown Rx NEBS] Prednisone [predniSONE 10 mg 10 mg PO .TAPER #1 tab.ds.pk 08/06/18 Unknown Rx (6-Day Pack, 21 Tabs)] ALBUTEROL Inhaler (OR & NICU) 2 puff IH QID PRN #1 inhalation 09/14/18 Unknown Rx [ProAir HFA Inhaler] Budesonide/Formoterol Fumarate 10.2 gm IH BID #1 hfa.aer.ad 09/14/18 Unknown Rx [Symbicort 160-4.5 Mcg Inhaler] Prednisone [predniSONE 10 mg 10 mg PO .TAPER #1 tab.ds.pk 09/14/18 Unknown Rx (6-Day Pack, 21 Tabs)] Albuterol Sulfate [Albuterol 0.63% 0.63 mg IH Q4HR PRN #2 ml 10/02/18 Unknown R x NEBS] Albuterol Sulfate [Proair 90 mcg IH Q4HR PRN #2 aer.pow.ba 10/02/18 Unknown Rx Respiclick] Prednisone [predniSONE 10 mg 10 mg PO .TAPER #1 tab.ds.pk 10/02/18 Unknown Rx (6-Day Pack, 21 Tabs)] ED Physical Exam - General Limitations: Physical Limitation General appearance: alert, anxious, in distress - Head Head exam: Present: atraumatic, normocephalic - Eye Eye exam: Present: normal appearance, EOMI - ENT ENT exam: Present: normal exam, normal orophraynx, mucous membranes moist, normal external ear exam - Neck Neck exam: Present: normal inspection, full ROM. Absent: tenderness, meningismus - Respiratory Respiratory exam: Present: respiratory distress, wheezes, accessory muscle use - Cardiovascular Cardiovascular Exam: Present: normal rhythm, tachycardia, normal heart sounds. Absent: systolic murmur, diastolic murmur, rubs, gallop - GI/Abdominal GI/Abdominal exam: Present: soft. Absent: distended, tenderness, guarding, rebound, rigid, pulsatile mass - Rectal Rectal exam: Present: deferred - Extremities Exam Extremities exam: Present: normal inspection, full ROM, other (2+ pulses noted in the bilateral upper extremities. Compartments are soft.) - Back Exam Back exam: Present: normal inspection, full ROM. Absent: tenderness, CVA tenderness (R), CVA tenderness (L), paraspinal tenderness, vertebral tenderness - Neurological Exam Neurological exam: Present: alert, oriented X3, normal gait, other (Extraocular movements intact. Tongue midline. No facial droop. Facial sensation intact to light touch in the V1, V2, V3 distribution bilaterally. 5 and 5 strength in 4 extremities.. Sensation is intact to light touch in 4 extremities.). Absent: motor sensory deficit - Psychiatric Psychiatric exam: Present: anxious - Skin Skin exam: Present: warm, dry, intact, normal color. Absent: rash ED Course Vital Signs 10/02/18 10/02/18 10/02/18 14:12 14:38 14:45 Temperature 98.1 F Pulse Rate 125 H 111 H Pulse Rate [ 113 H Bilateral] Pulse Rate [ 112 H Throughout] Respiratory 20 18 Rate Respiratory 18 Rate [Bilateral ] Respiratory 16 Rate [ Throughout] Blood Pressure 132/82 111/70 O2 Sat by Pulse 94 Oximetry 10/02/18 14:50 Temperature Pulse Rate Pulse Rate [ Bilateral] Pulse Rate [ Throughout] Respiratory Rate Respiratory Rate [Bilateral ] Respiratory Rate [ Throughout] Blood Pressure O2 Sat by Pulse 94 Oximetry - Reevaluation(s) Reevaluation #1: 10/02/18 14:22 Differential diagnosis, including not limited to, bronchitis, pneumothorax, status asthmaticus Assessment and plan: 38-year-old gentleman with asthma exacerbation, manifest by hypoxia, wheezing, tachypnea, retractions. Saturating at 94% on supplemental oxygen. We will chew with albuterol, Atrovent, magnesium, fluids, septated epinephrine, and BiPAP therapy. No pulmonary embolism or DVT risk factors. Low risk by well's criteria. Reevaluation #2: 10/02/18 15:51 Patient feels completely improved. He has not required BiPAP while in the ER. His retractions have resolved. His wheezing has resolved. He walks around the ER, and is speaking unassigned phone without distress. Somewhat tachycardic at this time, heart rate 111 bpm, we would expect that secondary to albuterol and epinephrine administration. ED Medical Decision Making - Lab Data Result diagrams: 10/02/18 14:51 10/02/18 14:51 Vital Signs 10/02/18 14:12 Temperature 98.1 F Pulse Rate 125 H Respiratory 20 Rate Blood Pressure 132/82 O2 Sat by Pulse 94 Oximetry Vital Signs 10/02/18 10/02/18 10/02/18 14:12 14:38 14:45 Temperature 98.1 F Pulse Rate 125 H 111 H Pulse Rate [ 113 H Bilateral] Pulse Rate [ 112 H Throughout] Respiratory 20 18 Rate Respiratory 18 Rate [Bilateral ] Respiratory 16 Rate [ Throughout] Blood Pressure 132/82 111/70 O2 Sat by Pulse 94 Oximetry 10/02/18 14:50 Temperature Pulse Rate Pulse Rate [ Bilateral] Pulse Rate [ Throughout] Respiratory Rate Respiratory Rate [Bilateral ] Respiratory Rate [ Throughout] Blood Pressure O2 Sat by Pulse 94 Oximetry Lab Results 10/02/18 10/02/18 10/02/18 Range/Units 14:51 14:51 14:51 WBC 12.1 H (4.5-11.0) K/mm3 RBC 4.04 (3.65-5.03) M/mm3 Hgb 13.2 (11.8-15.2) gm/dl Hct 39.0 (35.5-45.6) % MCV 97 H (84-94) fl MCH 33 H (28-32) pg MCHC 34 (32-34) % RDW 13.5 (13.2-15.2) % Plt Count 196 (140-440) K/mm3 Lymph % (Auto) 11.7 L (13.4-35.0) % [place] % (Auto) 4.3 (0.0-7.3) % Eos % (Auto) 5.5 H (0.0-4.3) % Baso % (Auto) 0.8 (0.0-1.8) % Lymph # 1.4 (1.2-5.4) K/mm3 [place] # 0.5 (0.0-0.8) K/mm3 Eos # 0.7 H (0.0-0.4) K/mm3 Baso # 0.1 (0.0-0.1) K/mm3 Seg Neutrophils % 77.7 H (40.0-70.0) % Seg Neutrophils # 9.4 H (1.8-7.7) K/mm3 PT 13.6 (12.2-14.9) Sec. INR 1.07 (0.87-1.13) POC ABG pH (7.35-7.45) POC ABG pCO2 (35-45) POC ABG pO2 (80-105) POC ABG HCO3 (22-26 mml/L) POC ABG Total CO2 (23-27mmol/L) POC ABG O2 Sat POC ABG Base Excess ((-2) - (+3)mmol/L) FiO2 % Sodium 139 (137-145) mmol/L Potassium 4.3 (3.6-5.0) mmol/L Chloride 106.2 (98-107) mmol/L Carbon Dioxide 22 (22-30) mmol/L Anion Gap 15 mmol/L BUN 15 (9-20) mg/dL Creatinine 1.2 (0.8-1.5) mg/dL Estimated GFR > 60 ml/min BUN/Creatinine Ratio 13 % Glucose 93 (75-100) mg/dL Calcium 8.1 L (8.4-10.2) mg/dL 10/02/18 Range/Units 14:53 WBC (4.5-11.0) K/mm3 RBC (3.65-5.03) M/mm3 Hgb (11.8-15.2) gm/dl Hct (35.5-45.6) % MCV (84-94) fl MCH (28-32) pg MCHC (32-34) % RDW (13.2-15.2) % Plt Count (140-440) K/mm3 Lymph % (Auto) (13.4-35.0) % [place] % (Auto) (0.0-7.3) % Eos % (Auto) (0.0-4.3) % Baso % (Auto) (0.0-1.8) % Lymph # (1.2-5.4) K/mm3 [place] # (0.0-0.8) K/mm3 Eos # (0.0-0.4) K/mm3 Baso # (0.0-0.1) K/mm3 Seg Neutrophils % (40.0-70.0) % Seg Neutrophils # (1.8-7.7) K/mm3 PT (12.2-14.9) Sec. INR (0.87-1.13) POC ABG pH 7.378 (7.35-7.45) POC ABG pCO2 39.0 (35-45) POC ABG pO2 85 (80-105) POC ABG HCO3 22.9 (22-26 mml/L) POC ABG Total CO2 24 (23-27mmol/L) POC ABG O2 Sat 96 POC ABG Base Excess -2 ((-2) - (+3)mmol/L) FiO2 50 % Sodium (137-145) mmol/L Potassium (3.6-5.0) mmol/L Chloride (98-107) mmol/L Carbon Dioxide (22-30) mmol/L Anion Gap mmol/L BUN (9-20) mg/dL Creatinine (0.8-1.5) mg/dL Estimated GFR ml/min BUN/Creatinine Ratio % Glucose (75-100) mg/dL Calcium (8.4-10.2) mg/dL - EKG Data -: EKG Interpreted by Ri EKG shows normal: sinus rhythm Rate: tachycardia - EKG Data 10/02/18 14:38 Sinus tachycardia, 112 beats for minute, normal axis, borderline high left ventricular voltage, intervals appear to be within normal limits, question atrial enlargement, no endorsement of chest pain, this EKG is abnormal, his EKG is not consistent with ST elevation myocardial infarction. - Radiology Data Radiology results: pending, report reviewed, image reviewed X-ray of the chest is negative for acute disease. Critical care attestation.: If time is entered above; I have spent that time in minutes in the direct care of this critically ill patient, excluding procedure time. ED Disposition Clinical Impression: Asthma Qualifiers: Asthma severity: moderate Asthma persistence: unspecified Asthma complication type: uncomplicated Qualified Code(s): J45.909 - Unspecified asthma, uncomplicated Disposition: DC- TO HOME OR SELFCARE Is pt being admited?: No Does the pt Need Aspirin: No Condition: Stable Instructions: Asthma (ED) Additional Instructions: Take the medications as needed/directed. Follow-up with her primary care doctor or county director within the next 2 weeks. Avoid consumption of tobacco and exposure to allergy medicines. Return to the emergency room right away with new, worsening or different symptoms not present on the initial emergency room evaluation. Referrals: [facility] KAYLEE [Primary Care Provider] - 3-5 Days [facility] QUINTERO MD [Staff Physician] - 3-5 Days [facility] [Provider Group] - 3-5 Days
--- NOTE | 2018-10-02 15:12 | XRay Report ---
CHEST 1 VIEW 10/02/2018 2:42 PM INDICATION / CLINICAL INFORMATION: Asthma. COMPARISON: 09/14/18 FINDINGS: SUPPORT DEVICES: None. HEART / MEDIASTINUM: No significant abnormality. LUNGS / PLEURA: No significant pulmonary or pleural abnormality. Lungs are slightly hyperinflated wit h flattening of the hemidiaphragms. No pneumothorax. ADDITIONAL FINDINGS: No significant additional findings. IMPRESSION: 1. Slightly hyperinflated lungs but no acute pulmonary or pleural findings. No significant change. Signer Name: Miko Lo MD Signed: 10/02/2018 3:08 PM Workstation Name: [id number]
[2018-10-02 15:34] LABS: Basophils # (Auto) 0.1 K/mm3 (0.0-0.1); Basophils % (Auto) 0.8 % (0.0-1.8); Eosinophils # (Auto) 0.7 K/mm3 (0.0-0.4); Eosinophils % (Auto) 5.5 % (0.0-4.3); Hemoglobin 13.2 gm/dl (11.8-15.2); Lymphocytes # (Auto) 1.4 K/mm3 (1.2-5.4); Lymphocytes % (Auto) 11.7 % (13.4-35.0); Mean Corpuscular HGB Conc 34 % (32-34); Mean Corpuscular Volume 97 fl (84-94); Monocytes # (Auto) 0.5 K/mm3 (0.0-0.8); Monocytes % (Auto) 4.3 % (0.0-7.3); Platelet Count 196 K/mm3 (140-440); Red Blood Count 4.04 M/mm3 (3.65-5.03); Red Cell Distribution Width 13.5 % (13.2-15.2)
[2018-10-02 15:45] LABS: BUN/Creatinine Ratio 13; Blood Urea Nitrogen 15 mg/dL (9-20); Calcium 8.1 mg/dL (8.4-10.2); Hemolysis Index 45
[2018-10-02 15:48] LABS: INR 1.07 (0.87-1.13)
[2018-10-02 16:05] VITALS: BP 149/98
== END 2018-10-02 16:05 | disposition home or self-care (01) ==
LOC: ED 13:59
DX: J45.40 Moderate persistent asthma, uncomplicated (principal); Z79.899 Other long term (current) drug therapy; G89.29 Other chronic pain; M25.571 Pain in right ankle and joints of right foot
CPT/HCPCS: 36415; 71045; 80048; 82550; 82803; 83735; 85025; 85610; 93005; 93010; 94644; 94760; 96365; 96372; 99285; J0171; J3475; J7030

== ENCOUNTER 2018-11-03 11:04 | Emergency (ER) | payer OTHER ==
[2018-11-03 11:09] VITALS: BP 108/77
[2018-11-03] MEDS ORDERED: DELTASONE PO ONE (11:23)
[2018-11-03] MEDS ORDERED: DUONEB *Not for PRN Use IH ONE (11:23)
--- NOTE | 2018-11-03 12:34 | Emergency Department Report ---
ED Asthma HPI - General Chief Complaint: Adult Asthma Stated Complaint: ASTHMA/TIGHTNESS IN CHEST Time Seen by Provider: 11/03/18 11:20 Source: patient Mode of arrival: Ambulatory Limitations: No Limitations - History of Present Illness Initial Comments: Patient is a 38-year-old female who is here secondary to asthma exacerbation. Patient states shortness of breath started last night he is out of his medications for his nebulizer machine. Patient has some mild shortness of breath worse with exertion. The patient has a mild nonproductive cough. P atient denies any fevers chills nausea vomiting or diarrhea. - Related Data Previous Rx's Medication Instructions Recorded Last Taken Type Acetaminophen/Codeine 1 tab PO Q6H PRN #12 tab 02/01/14 Unknown Rx [Acetaminophen-Codeine #3 TAB] Cyclobenzaprine [Flexeril 10mg] 10 mg PO TID PRN #15 tablet 02/01/14 Unknown Rx Ibuprofen [Motrin 400 MG tab] 400 mg PO Q8H PRN #30 tablet 02/01/14 Unknown Rx Prednisone [predniSONE 5 mg (6-Day 5 mg PO .TAPER #1 tab.ds.pk 12/10/17 Unknown Rx Pack, 21 Tabs)] Azithromycin [Zithromax Z-GLADIS] 250 mg PO DAILY #6 tab 04/29/18 Unknown Rx Benzonatate [Tessalon Perle] 100 mg PO TID PRN #30 capsule 04/29/18 Unknown Rx Ibuprofen [Ibuprofen 800] 800 mg PO TID PRN #30 tablet 04/29/18 Unknown Rx dexAMETHasone [Decadron] 4 mg PO BID 3 Days #6 tablet 04/29/18 Unknown Rx ALBUTEROL Inhaler (OR & NICU) 2 puff IH QID PRN #1 inhalation 05/27/18 Unknown Rx [ProAir HFA Inhaler] ALBUTEROL NEB's [Proventil 0.083% 2.5 mg IH TID PRN #1 box 05/27/18 Unknown Rx NEBS] predniSONE [Deltasone] 40 mg PO QDAY 5 Days tab 05/27/18 Unknown Rx ALBUTEROL Inhaler(NF) [VENTOLIN 2 puff IH Q4H PRN #1 inha 07/15/18 Unknown Rx Inhaler(NF)] ALBUTEROL NEB's [Proventil 0.083% 2.5 mg IH Q4H PRN #25 vial 07/15/18 Unknown Rx NEBS] Azithromycin [Zithromax TAB] 250 mg PO DAILY #6 tab 07/15/18 Unknown Rx Benzonatate [Tessalon Perles] 100 mg PO Q8HR PRN #30 capsule 07/15/18 Unknown Rx Ibuprofen [Ibuprofen 800] 800 mg PO TID PRN #30 tab 07/15/18 Unknown Rx predniSONE [Deltasone] 40 mg PO DAILY 5 Days #10 tablet 07/15/18 Unknown Rx ALBUTEROL Inhaler(NF) [VENTOLIN 2 puff IH Q4-6H PRN #1 inha 08/06/18 Unknown Rx Inhaler(NF)] ALBUTEROL NEB's [Proventil 0.083% 2.5 mg IH TID PRN #1 box 08/06/18 Unknown Rx NEBS] Prednisone [predniSONE 10 mg 10 mg PO .TAPER #1 tab.ds.pk 08/06/18 Unknown Rx (6-Day Pack, 21 Tabs)] ALBUTEROL Inhaler (OR & NICU) 2 puff IH QID PRN #1 inhalation 09/14/18 Unknown Rx [ProAir HFA Inhaler] Budesonide/Formoterol Fumarate 10.2 gm IH BID #1 hfa.aer.ad 09/14/18 Unknown Rx [Symbicort 160-4.5 Mcg Inhaler] Prednisone [predniSONE 10 mg 10 mg PO .TAPER #1 tab.ds.pk 09/14/18 Unknown Rx (6-Day Pack, 21 Tabs)] Albuterol Sulfate [Albuterol 0.63% 0.63 mg IH Q4HR PRN #2 ml 10/02/18 Unknown Rx NEBS] Albuterol Sulfate [Proair 90 mcg IH Q4HR PRN #2 aer.pow.ba 10/02/18 Unknown Rx Respiclick] Prednisone [predniSONE 10 mg 10 mg PO .TAPER #1 tab.ds.pk 10/02/18 Unknown Rx (6-Day Pack, 21 Tabs)] ALBUTEROL Inhaler (OR & NICU) 2 puff IH QID PRN #1 inhalation 11/03/18 Unknown Rx [ProAir HFA Inhaler] ALBUTEROL NEB's [Proventil 0.083% 5 mg IH TID PRN #20 neb 11/03/18 Unknown Rx NEBS] predniSONE [Deltasone] 20 mg PO QDAY #5 tab 11/03/18 Unknown Rx Allergies Allergy/AdvReac Type Severity Reaction Status Date / Time No Known Allergies Allergy Verified 07/15/18 18:36 ED Review of Systems ROS: Stated complaint: ASTHMA/TIGHTNESS IN CHEST Other details as noted in HPI Comment: All other systems reviewed and negative ED Past Medical Hx - Past Medical History Previous Medical History?: Yes Hx Asthma: Yes - Surgical History Past Surgical History?: No - Social History Smoking Status: Former Smoker Substance Use Type: Alcohol - Medications Home Medications: Home Medications Medication Instructions Recorded Confirmed Last Taken Type Acetaminophen/Codeine 1 tab PO Q6H PRN #12 tab 02/01/14 05/20/17 Unknown Rx [Acetaminophen-Codeine #3 TAB] Cyclobenzaprine [Flexeril 10mg] 10 mg PO TID PRN #15 tablet 02/01/14 05/20/17 Unknown Rx Ibuprofen [Motrin 400 MG tab] 400 mg PO Q8H PRN #30 tablet 02/01/14 05/20/17 Unknown Rx Prednisone [predniSONE 5 mg (6-Day 5 mg PO .TAPER #1 tab.ds.pk 12/10/17 Unknown Rx Pack, 21 Tabs)] Azithromycin [Zithromax Z-GLADIS] 250 mg PO DAILY #6 tab 04/29/18 Unknown Rx Benzonatate [Tessalon Perle] 100 mg PO TID PRN #30 capsule 04/29/18 Unknown Rx Ibuprofen [Ibuprofen 800] 800 mg PO TID PRN #30 tablet 04/29/18 Unknown Rx dexAMETHasone [Decadron] 4 mg PO BID 3 Days #6 tablet 04/29/18 Unknown Rx ALBUTEROL Inhaler (OR & NICU) 2 puff IH QID PRN #1 inhalation 05/27/18 Unknown Rx [ProAir HFA Inhaler] ALBUTEROL NEB's [Proventil 0.083% 2.5 mg IH TID PRN #1 box 05/27/18 Unknown Rx NEBS] predniSONE [Deltasone] 40 mg PO QDAY 5 Days tab 05/27/18 Unknown Rx ALBUTEROL Inhaler(NF) [VENTOLIN 2 puff IH Q4H PRN #1 inha 07/15/18 Unknown Rx Inhaler(NF)] ALBUTEROL NEB's [Proventil 0.083% 2.5 mg IH Q4H PRN #25 vial 07/15/18 Unknown Rx NEBS] Azithromycin [Zithromax TAB] 250 mg PO DAILY #6 tab 07/15/18 Unknown Rx Benzonatate [Tessalon Perles] 100 mg PO Q8HR PRN #30 capsule 07/15/18 Unknown Rx Ibuprofen [Ibuprofen 800] 800 mg PO TID PRN #30 tab 07/15/18 Unknown Rx predniSONE [Deltasone] 40 mg PO DAILY 5 Days #10 tablet 07/15/18 Unknown Rx ALBUTEROL Inhaler(NF) [VENTOLIN 2 puff IH Q4-6H PRN #1 inha 08/06/18 Unknown Rx Inhaler(NF)] ALBUTEROL NEB's [Proventil 0.083% 2.5 mg IH TID PRN #1 box 08/06/18 Unknown Rx NEBS] Prednisone [predniSONE 10 mg 10 mg PO .TAPER #1 tab.ds.pk 08/06/18 Unknown Rx (6-Day Pack, 21 Tabs)] ALBUTEROL Inhaler (OR & NICU) 2 puff IH QID PRN #1 inhalation 09/14/18 Unknown Rx [ProAir HFA Inhaler] Budesonide/Formoterol Fumarate 10.2 gm IH BID #1 hfa.aer.ad 09/14/18 Unknown Rx [Symbicort 160-4.5 Mcg Inhaler] Prednisone [predniSONE 10 mg 10 mg PO .TAPER #1 tab.ds.pk 09/14/18 Unknown Rx (6-Day Pack, 21 Tabs)] Albuterol Sulfate [Albuterol 0.63% 0.63 mg IH Q4HR PRN #2 ml 10/02/18 Unknown Rx NEBS] Albuterol Sulfate [Proair 90 mcg IH Q4HR PRN #2 aer.pow.ba 10/02/18 Unknown Rx Respiclick] Prednisone [predniSONE 10 mg 10 mg PO .TAPER #1 tab.ds.pk 10/02/18 Unknown Rx (6-Day Pack, 21 Tabs)] ALBUTEROL Inhaler (OR & NICU) 2 puff IH QID PRN #1 inhalation 11/03/18 Unknown Rx [ProAir HFA Inhaler] ALBUTEROL NEB's [Proventil 0.083% 5 mg IH TID PRN #20 neb 11/03/18 Unknown Rx NEBS] predniSONE [Deltasone] 20 mg PO QDAY #5 tab 11/03/18 Unknown Rx ED Physical Exam - General Limitations: No Limitations General appearance: alert, in no apparent distress - Head Head exam: Present: atraumatic, normocephalic - Eye Eye exam: Present: normal appearance - ENT ENT exam: Present: mucous membranes moist - Neck Neck exam: Present: normal inspection - Respiratory Respiratory exam: Present: wheezes. Absent: normal lung sounds bilaterally, respiratory distress, rales, rhonchi - Cardiovascular Cardiovascular Exam: Present: regular rate, normal rhythm. Absent: systolic murmur, diastolic murmur, rubs, gallop - GI/Abdominal GI/Abdominal exam: Present: soft, normal bowel sounds. Absent: distended, tenderness, guarding, rebound - Rectal Rectal exam: Present: deferred - Extremities Exam Extremities exam: Present: normal inspection - Back Exam Back exam: Present: normal inspection - Neurological Exam Neurological exam: Present: alert, oriented X3 - Psychiatric Psychiatric exam: Present: normal affect, normal mood - Skin Skin exam: Present: warm, dry, intact, normal color. Absent: rash ED Course Vital Signs 11/03/18 11:07 Temperature 98.4 F Pulse Rate 78 Respiratory 20 Rate Blood Pressure 108/77 O2 Sat by Pulse 99 Oximetry ED Medical Decision Making - Medical Decision Making Patient received a nebulizer treatment was given 2 doses of DuoNeb. Patient has had improvement of his symptoms. Patient feels much better also. Patient discharged home with refills of his albuterol as well as a 5 day course of prednisone Critical care attestation.: If time is entered above; I have spent that time in minutes in the direct care of this critically ill patient, excluding procedure time. ED Disposition Clinical Impression: Asthma exacerbation Qualifiers: Asthma severity: moderate Asthma persistence: unspecified Qualified Code(s): J45.901 - Unspecified asthma with (acute) exacerbation Disposition: - TO HOME OR SELFCARE Is pt being admited?: No Does the pt Need Aspirin: No Condition: Stable Instructions: Asthma (ED) Referrals: SHIRA JAVIER MD [Primary Care Provider] - 3-5 Days Time of Disposition: 12:33
== END 2018-11-03 12:49 | disposition home or self-care (01) ==
LOC: ED 11:04
DX: J45.901 Unspecified asthma with (acute) exacerbation (principal); Z87.891 Personal history of nicotine dependence; Z79.899 Other long term (current) drug therapy
CPT/HCPCS: 94644; 99282; J7512

== ENCOUNTER 2019-05-11 11:35 | Emergency (ER) | payer SELFPAY ==
[2019-05-11 11:45] VITALS: BP 110/81
[2019-05-11] MEDS ORDERED: predniSONE 20 MG TAB PO ONE (12:18)
[2019-05-11] MEDS ORDERED: IPRATROPIUM 0.02% NEBU 2.5 ML IH ONE (12:18)
[2019-05-11] MEDS ORDERED: ALBUTEROL 2.5 MG/3 ML NEBU IH ONE (12:18)
--- NOTE | 2019-05-11 12:21 | Emergency Department Report ---
Chief Complaint: Dyspnea/Respdistress Stated Complaint: ASTHMA Time Seen by Provider: 05/11/19 12:17 - HPI History of Present Illness: 2 days wheezing sob. exposure to fumes at his job. inhaler at home not helping - ROS Review of Systems: all systems reviewed and negative - Exam Vital Signs: Vital Signs 05/11/19 11:44 Temperature 97.7 F Pulse Rate 83 Respiratory 16 Rate Blood Pressure 110/81 O2 Sat by Pulse 99 Oximetry Physical Exam: AOx3, lungs" wheezing, decreased breathsounds. able to complete full sentence with minor struggle. heart tones normal MSE screening note: Focused history and physical exam performed. Due to findings the following was ordered: ED Medical Decision Making - Medical Decision Making after neb wheezing improved stable for DC ED Disposition for MSE Clinical Impression: Acute asthma exacerbation Qualifiers: Asthma severity: moderate Asthma persistence: unspecified Qualified Code(s): J45.901 - Unspecified asthma with (acute) exacerbation Disposition: DC-01 TO HOME OR SELFCARE Is pt being admited?: No Does the pt Need Aspirin: No Condition: Stable Instructions: Asthma (ED) Referrals: FILIBERTO BAIN MD [Staff Physician] - 3-5 Days Time of Disposition: 14:28
== END 2019-05-11 14:33 | disposition home or self-care (01) ==
LOC: ED 11:35
DX: J45.901 Unspecified asthma with (acute) exacerbation (principal)
CPT/HCPCS: 94640; 94644; 99282

== ENCOUNTER 2019-06-02 07:57 | Emergency (ER) | payer SELFPAY ==
[2019-06-02] MEDS ORDERED: ALBUTEROL 2.5 MG/3 ML NEBU IH ONE (08:13)
[2019-06-02] MEDS ORDERED: IPRATROPIUM 0.02% NEBU 2.5 ML IH ONE (08:14)
--- NOTE | 2019-06-02 08:18 | Emergency Department Report ---
ED Asthma HPI - General Chief Complaint: Dyspnea/Respdistress Stated Complaint: BASSAM Time Seen by Provider: 06/02/19 08:12 Source: patient, EMS Mode of arrival: Wheelchair Limitations: No Limitations - History of Present Illness Initial Comments: Patient is 39 years old male with history of asthma on Combivent as needed. Patient presented to the ER via EMS from home for evaluation of possible asthma exacerbation. Patient stated the symptoms started last night with shortness of breath and wheezing. He stated that he was taking his breathing treatment with no help. Patient received albuterol, Atrovent, Solu-Medrol and magnesium sulfate by EMS. In the emergency room patient is in moderate respiratory distress. Patient oxygen saturation is 96% on room air. MD Complaint: "asthma attack", shortness of breath, wheezing -: Last night Asthma History: childhood onset Severity: moderate Context: recent URI Treatments Prior to Arrival: inhaled bronchodilator, IV steroid, oxygen - Related Data Current Asthma Therapy: inhaled bronchodilator Previous Rx's Medication Instructions Recorded Last Taken Type Acetaminophen/Codeine 1 tab PO Q6H PRN #12 tab 02/01/14 Unknown Rx [Acetaminophen-Codeine #3 TAB] Cyclobenzaprine [Flexeril 10mg] 10 mg PO TID PRN #15 tablet 02/01/14 Unknown Rx Ibuprofen [Motrin 400 MG tab] 400 mg PO Q8H PRN #30 tablet 02/01/14 Unknown Rx Prednisone [predniSONE 5 mg (6-Day 5 mg PO .TAPER #1 tab.ds.pk 12/10/17 Unknown Rx Pack, 21 Tabs)] Azithromycin [Zithromax Z-GLADIS] 250 mg PO DAILY #6 tab 04/29/18 Unknown Rx Benzonatate [Tessalon Perle] 100 mg PO TID PRN #30 capsule 04/29/18 Unknown Rx Ibuprofen [Ibuprofen 800] 800 mg PO TID PRN #30 tablet 04/29/18 Unknown Rx dexAMETHasone [Decadron] 4 mg PO BID 3 Days #6 tablet 04/29/18 Unknown Rx ALBUTEROL NEB's [Proventil 0.083% 2.5 mg IH TID PRN #1 box 05/27/18 Unknown Rx NEBS] Albuterol INH(or & Nicu Only) 2 puff IH QID PRN #1 inhalation 05/27/18 Unknown Rx [ProAir HFA Inhaler] predniSONE [Deltasone] 40 mg PO QDAY 5 Days tab 05/27/18 Unknown Rx ALBUTEROL Inhaler(NF) [VENTOLIN 2 puff IH Q4H PRN #1 inha 07/15/18 Unknown Rx Inhaler(NF)] ALBUTEROL NEB's [Proventil 0.083% 2.5 mg IH Q4H PRN #25 vial 07/15/18 Unknown Rx NEBS] Azithromycin [Zithromax TAB] 250 mg PO DAILY #6 tab 07/15/18 Unknown Rx Benzonatate [Tessalon Perles] 100 mg PO Q8HR PRN #30 capsule 07/15/18 Unknown Rx Ibuprofen [Ibuprofen 800] 800 mg PO TID PRN #30 tab 07/15/18 Unknown Rx predniSONE [Deltasone] 40 mg PO DAILY 5 Days #10 tablet 07/15/18 Unknown Rx ALBUTEROL Inhaler(NF) [VENTOLIN 2 puff IH Q4-6H PRN #1 inha 08/06/18 Unknown Rx Inhaler(NF)] ALBUTEROL NEB's [Proventil 0.083% 2.5 mg IH TID PRN #1 box 08/06/18 Unknown Rx NEBS] Prednisone [predniSONE 10 mg 10 mg PO .TAPER #1 tab.ds.pk 08/06/18 Unknown Rx (6-Day Pack, 21 Tabs)] Albuterol INH(or & Nicu Only) 2 puff IH QID PRN #1 inhalation 09/14/18 Unknown Rx [ProAir HFA Inhaler] Budesonide/Formoterol Fumarate 10.2 gm IH BID #1 hfa.aer.ad 09/14/18 Unknown Rx [Symbicort 160-4.5 Mcg Inhaler] Prednisone [predniSONE 10 mg 10 mg PO .TAPER #1 tab.ds.pk 09/14/18 Unknown Rx (6-Day Pack, 21 Tabs)] Albuterol Sulfate [Albuterol 0.63% 0.63 mg IH Q4HR PRN #2 ml 10/02/18 Unknown Rx NEBS] Albuterol Sulfate [Proair 90 mcg IH Q4HR PRN #2 aer.pow.ba 10/02/18 Unknown Rx Respiclick] Prednisone [predniSONE 10 mg 10 mg PO .TAPER #1 tab.ds.pk 10/02/18 Unknown Rx (6-Day Pack, 21 Tabs)] ALBUTEROL NEB's [Proventil 0.083% 5 mg IH TID PRN #20 neb 11/03/18 Unknown Rx NEBS] Albuterol INH(or & Nicu Only) 2 puff IH QID PRN #1 inhalation 11/03/18 Unknown Rx [ProAir HFA Inhaler] predniSONE [Deltasone] 20 mg PO QDAY #5 tab 11/03/18 Unknown Rx ALBUTEROL NEB's [Proventil 0.083% 5 mg IH TID PRN #20 neb 05/11/19 Unknown Rx NEBS] Albuterol INH(or & Nicu Only) 2 puff IH QID PRN #1 inhalation 05/11/19 Unknown Rx [ProAir HFA Inhaler] Benzonatate [Tessalon Perles] 100 mg PO Q8HR #10 capsule 05/11/19 Unknown Rx predniSONE [Deltasone] 20 mg PO QDAY #5 tab 05/11/19 Unknown Rx Allergies Allergy/AdvReac Type Severity Reaction Status Date / Time No Known Allergies Allergy Verified 07/15/18 18:36 ED Review of Systems ROS: Stated complaint: BASSAM Other details as noted in HPI Comment: All other systems reviewed and negative Constitutional: denies: chills, fever Respiratory: cough, shortness of breath, wheezing Cardiovascular: denies: chest pain, palpitations, dyspnea on exertion Gastrointestinal: denies: abdominal pain, nausea, vomiting Neurological: denies: headache, weakness, numbness, paresthesias, confusion ED Past Medical Hx - Past Medical History Previous Medical History?: Yes Hx Asthma: Yes - Surgical History Past Surgical History?: No - Social History Smoking Status: Never Smoker Substance Use Type: None - Medications Home Medications: Home Medications Medication Instructions Recorded Confirmed Last Taken Type Acetaminophen/Codeine 1 tab PO Q6H PRN #12 tab 02/01/14 05/20/17 Unknown Rx [Acetaminophen-Codeine #3 TAB] Cyclobenzaprine [Flexeril 10mg] 10 mg PO TID PRN #15 tablet 02/01/14 05/20/17 Unknown Rx Ibuprofen [Motrin 400 MG tab] 400 mg PO Q8H PRN #30 tablet 02/01/14 05/20/17 Unk nown Rx Prednisone [predniSONE 5 mg (6-Day 5 mg PO .TAPER #1 tab.ds.pk 12/10/17 Unknown Rx Pack, 21 Tabs)] Azithromycin [Zithromax Z-GLADIS] 250 mg PO DAILY #6 tab 04/29/18 Unknown Rx Benzonatate [Tessalon Perle] 100 mg PO TID PRN #30 capsule 04/29/18 Unknown Rx Ibuprofen [Ibuprofen 800] 800 mg PO TID PRN #30 tablet 04/29/18 Unknown Rx dexAMETHasone [Decadron] 4 mg PO BID 3 Days #6 tablet 04/29/18 Unknown Rx ALBUTEROL NEB's [Proventil 0.083% 2.5 mg IH TID PRN #1 box 05/27/18 Unknown Rx NEBS] Albuterol INH(or & Nicu Only) 2 puff IH QID PRN #1 inhalation 05/27/18 Unknown Rx [ProAir HFA Inhaler] predniSONE [Deltasone] 40 mg PO QDAY 5 Days tab 05/27/18 Unknown Rx ALBUTEROL Inhaler(NF) [VENTOLIN 2 puff IH Q4H PRN #1 inha 07/15/18 Unknown Rx Inhaler(NF)] ALBUTEROL NEB's [Proventil 0.083% 2.5 mg IH Q4H PRN #25 vial 07/15/18 Unknown Rx NEBS] Azithromycin [Zithromax TAB] 250 mg PO DAILY #6 tab 07/15/18 Unknown Rx Benzonatate [Tessalon Perles] 100 mg PO Q8HR PRN #30 capsule 07/15/18 Unknown Rx Ibuprofen [Ibuprofen 800] 800 mg PO TID PRN #30 tab 07/15/18 Unknown Rx predniSONE [Deltasone] 40 mg PO DAILY 5 Days #10 tablet 07/15/18 Unknown Rx ALBUTEROL Inhaler(NF) [VENTOLIN 2 puff IH Q4-6H PRN #1 inha 08/06/18 Unknown Rx Inhaler(NF)] ALBUTEROL NEB's [Proventil 0.083% 2.5 mg IH TID PRN #1 box 08/06/18 Unknown Rx NEBS] Prednisone [predniSONE 10 mg 10 mg PO .TAPER #1 tab.ds.pk 08/06/18 Unknown Rx (6-Day Pack, 21 Tabs)] Albuterol INH(or & Nicu Only) 2 puff IH QID PRN #1 inhalation 09/14/18 Unknown Rx [ProAir HFA Inhaler] Budesonide/Formoterol Fumarate 10.2 gm IH BID #1 hfa.aer.ad 09/14/18 Unknown Rx [Symbicort 160-4.5 Mcg Inhaler] Prednisone [predniSONE 10 mg 10 mg PO .TAPER #1 tab.ds.pk 09/14/18 Unknown Rx (6-Day Pack, 21 Tabs)] Albuterol Sulfate [Albuterol 0.63% 0.63 mg IH Q4HR PRN #2 ml 10/02/18 Unknown Rx NEBS] Albuterol Sulfate [Proair 90 mcg IH Q4HR PRN #2 aer.pow.ba 10/02/18 Unknown Rx Respiclick] Prednisone [predniSONE 10 mg 10 mg PO .TAPER #1 tab.ds.pk 10/02/18 Unknown Rx (6-Day Pack, 21 Tabs)] ALBUTEROL NEB's [Proventil 0.083% 5 mg IH TID PRN #20 neb 11/03/18 Unknown Rx NEBS] Albuterol INH(or & Nicu Only) 2 puff IH QID PRN #1 inhalation 11/03/18 Unknown Rx [ProAir HFA Inhaler] predniSONE [Deltasone] 20 mg PO QDAY #5 tab 11/03/18 Unknown Rx ALBUTEROL NEB's [Proventil 0.083% 5 mg IH TID PRN #20 neb 05/11/19 Unknown Rx NEBS] Albuterol INH(or & Nicu Only) 2 puff IH QID PRN #1 inhalation 05/11/19 Unknown Rx [ProAir HFA Inhaler] Benzonatate [Tessalon Perles] 100 mg PO Q8HR #10 capsule 05/11/19 Unknown Rx predniSONE [Deltasone] 20 mg PO QDAY #5 tab 05/11/19 Unknown Rx ED Physical Exam - General Limitations: No Limitations General appearance: alert, in distress - Head Head exam: Present: atraumatic, normocephalic, normal inspection - Eye Eye exam: Present: normal appearance - ENT ENT exam: Present: normal exam, normal orophraynx, mucous membranes moist - Neck Neck exam: Present: normal inspection, full ROM. Absent: tenderness, meningismus, lymphadenopathy, thyromegaly - Respiratory Respiratory exam: Present: normal lung sounds bilaterally, respiratory distress, wheezes, rhonchi - Cardiovascular Cardiovascular Exam: Present: regular rate, normal rhythm, normal heart sounds - GI/Abdominal GI/Abdominal exam: Present: soft, normal bowel sounds. Absent: distended, tenderness, guarding, rebound, rigid, organomegaly, mass, bruit, hernia - Extremities Exam Extremities exam: Present: normal inspection, full ROM, normal capillary refill - Back Exam Back exam: Present: normal inspection, full ROM. Absent: CVA tenderness (R), CVA tenderness (L) - Neurological Exam Neurological exam: Present: alert, oriented X3, CN II-XII intact, normal gait, reflexes normal - Psychiatric Psychiatric exam: Present: normal mood - Skin Skin exam: Present: warm, intact, normal color ED Course Vital Signs 06/02/19 06/02/19 06/02/19 08:09 08:15 08:31 Temperature 98 F Pulse Rate 89 Pulse Rate [ Posterior Throughout] Respiratory 18 Rate Respiratory Rate [Posterior Throughout] Blood Pressure 104/79 [Right] O2 Sat by Pulse 97 98 98 Oximetry 06/02/19 08:45 Temperature Pulse Rate Pulse Rate [ 89 Posterior Throughout] Respiratory Rate Respiratory 18 Rate [Posterior Throughout] Blood Pressure [Right] O2 Sat by Pulse 99 Oximetry ED Medical Decision Making - Lab Data Result diagrams: 06/02/19 08:28 06/02/19 08:28 - Radiology Data Radiology results: report reviewed - Medical Decision Making Patient is 39 years old male with history of asthma on Combivent as needed. Patient presented to the ER via EMS from home for evaluation of possible asthma exacerbation. Patient stated the symptoms started last night with shortness of breath and wheezing. He stated that he was taking his breathing treatment with no help. Patient received albuterol, Atrovent, Solu-Medrol and magnesium sulfate by EMS. In the emergency room patient is in moderate respiratory distress. Patient oxygen saturation is 96% on room air. Patient received albuterol/Atrovent and stated that he is feeling much better. On exam there is no wheezing. Patient is ambulating well with no drop in his oxygen saturation. Labs reviewed and is unremarkable. Chest x-ray is unremarkable. Patient given prescription for Medrol pack 10 mg and advised to follow-up with his primary care physician in the next 2 to 3 days and to return to the ER if he develop any new symptoms. Critical care attestation.: If time is entered above; I have spent that time in minutes in the direct care of this critically ill patient, excluding procedure time. ED Disposition Clinical Impression: Asthma exacerbation Disposition: DC-01 TO HOME OR SELFCARE Is pt being admited?: No Condition: Stable Instructions: Asthma (ED) Referrals: PRIMARY CARE, [Primary Care Provider] - 3-5 Days
[2019-06-02 08:28] VITALS: BP 104/79
--- NOTE | 2019-06-02 08:43 | XRay Report ---
CHEST 1 VIEW INDICATION / CLINICAL INFORMATION: Dyspnea. COMPARISON: None available. FINDINGS: SUPPORT DEVICES: None. HEART / MEDIASTINUM: No significant abnormality. LUNGS / PLEURA: No significant pulmonary or pleural abnormality. No pneumothorax. ADDITIONAL FINDINGS: No significant additional findings. IMPRESSION: 1. No acute findings. Signer Name: Dany Cannon MD Signed: 06/02/2019 8:39 AM Workstation Name: [id number]
[2019-06-02 09:04] LABS: Basophils # (Auto) 0.1 K/mm3 (0.0-0.1); Basophils % (Auto) 0.9 % (0.0-1.8); Eosinophils # (Auto) 0.9 K/mm3 (0.0-0.4); Eosinophils % (Auto) 11.2 % (0.0-4.3); Hematocrit 42.3 % (35.5-45.6); Hemoglobin 14.3 gm/dl (11.8-15.2); Lymphocytes # (Auto) 2.1 K/mm3 (1.2-5.4); Lymphocytes % (Auto) 24.7 % (13.4-35.0); Mean Corpuscular HGB Conc 34 % (32-34); Mean Corpuscular Volume 94 fl (84-94); Monocytes # (Auto) 0.3 K/mm3 (0.0-0.8); Monocytes % (Auto) 3.4 % (0.0-7.3); Platelet Count 185 K/mm3 (140-440); Red Blood Count 4.48 M/mm3 (3.65-5.03); Red Cell Distribution Width 13.2 % (13.2-15.2)
[2019-06-02 09:23] LABS: BUN/Creatinine Ratio 10; Blood Urea Nitrogen 11 mg/dL (9-20); Calcium 8.8 mg/dL (8.4-10.2); Hemolysis Index 10
== END 2019-06-02 10:50 | disposition home or self-care (01) ==
LOC: ED 07:57
DX: J45.901 Unspecified asthma with (acute) exacerbation (principal); Z79.899 Other long term (current) drug therapy
CPT/HCPCS: 36415; 71045; 80048; 85025; 94640; 94644; 99284

== ENCOUNTER 2019-08-07 10:29 | Emergency (ER) | payer SELFPAY ==
[2019-08-07] MEDS ORDERED: ALBUTEROL 2.5 MG/3 ML NEBU IH ONE (10:47)
[2019-08-07] MEDS ORDERED: predniSONE 20 MG TAB PO ONE (10:47)
--- NOTE | 2019-08-07 10:47 | Emergency Department Report ---
Minor Respiratory - HPI Chief Complaint: Medical Clearance Stated Complaint: MED REFILL/ASTHMA Time Seen by Provider: 08/07/19 10:47 Duration: 2 Days Pain Location: Chest Severity: mild Minor Respiratory: Yes Able to Tolerate Fluids, No Rhinorrhea, No Sore Throat, No Ear Pain, No Cough, No Sick Contacts, No Hemoptysis, No Chest Pain, No Shortness of Breath, No Fever Other History: 39 yo AA comes to ER out of his inhaler and nebs. He has bilateral wheezing on exam. no fever or chills. no sob. no cough. no recent travel. no known exposure to covid. vital signs normal. ambulatory to [facility] ED Review of Systems ROS: Stated complaint: MED REFILL/ASTHMA Other details as noted in HPI Comment: All other systems reviewed and negative ED Past Medical Hx - Past Medical History Previous Medical History?: Yes Hx Asthma: Yes - Surgical History Past Surgical History?: No - Family History Family history: no significant - Social History Smoking Status: Never Smoker - Medications Home Medications: Home Medications Medication Instructions Recorded Confirmed Last Taken Type ALBUTEROL NEB's [Proventil 0.083% 5 mg IH TID PRN #20 neb 08/07/19 Unknown Rx NEBS] Albuterol INH(or & Nicu Only) 2 puff IH QID PRN #1 inhalation 08/07/19 Unknown Rx [ProAir HFA Inhaler] predniSONE [Deltasone] 20 mg PO DAILY #5 tablet 08/07/19 Unknown Rx Minor Respiratory Exam - Exam General: Vital signs noted. No distress. Alert and acting appropriately. HEENT: Yes Moist Mucous Membranes, No Pharyngeal Erythema, No Pharyngeal Exuda devora, No Rhinorrhea, No Conjuctival Injection, No Frontal Tenderness, No Maxillary Tenderness Ear: Neither TM Bulge, Neither TM Erythema, Neither EAC Pain, Neither EAC Discharge Neck: Yes Supple, No Adenopathy Lungs: Yes Good Air Exchange, Yes Wheezes, No Ronchi, No Stridor, No Cough, No Labored Respirations, No Retractions, No Use of Accessory Muscles, No Other Abnormal Lung Sounds Heart: Yes Regular, No Murmur Abdomen: Yes Normal Bowel Sounds, No Tenderness, No Peritoneal Signs Skin: No Rash, No Edema Neurologic: Alert and oriented, no deficits. Musculoskeletal: Unremarkable. ED Course Vital Signs 08/07/19 10:34 Temperature 97.7 F Pulse Rate 77 Respiratory 20 Rate Blood Pressure 106/66 O2 Sat by Pulse 99 Oximetry ED Medical Decision Making - Medical Decision Making no fever or chills no sob no cp no hypoxia, hypotension or tachycardia duoneb and prednisone pt educated on import of follow up with pcp no evidence infection/ no covid exposure dc home with dc poc and neb/inhaler/steroids Vital Signs (72 hours) 08/07/19 10:34 Temperature 97.7 F Pulse Rate 77 Respiratory 20 Rate Blood Pressure 106/66 O2 Sat by Pulse 99 Oximetry - Differential Diagnosis asthma ae with / without infection Critical care attestation.: If time is entered above; I have spent that time in minutes in the direct care of this critically ill patient, excluding procedure time. ED Disposition Clinical Impression: Asthma with acute exacerbation Disposition: DC-01 TO HOME OR SELFCARE Is pt being admited?: No Does the pt Need Aspirin: No Condition: Stable Instructions: Asthma (ED) Prescriptions: predniSONE [Deltasone] 20 mg PO DAILY #5 tablet Albuterol INH(or & Nicu Only) [ProAir HFA Inhaler] 2 puff IH QID PRN #1 inhalation PRN Reason: Shortness Of Breath ALBUTEROL NEB's [Proventil 0.083% NEBS] 5 mg IH TID PRN #20 neb PRN Reason: Wheezing Referrals: FILIBERTO BAIN MD [Staff Physician] - 3-5 Days Time of Disposition: 10:50
[2019-08-07 12:10] VITALS: BP 98/67
== END 2019-08-07 12:12 | disposition home or self-care (01) ==
LOC: ED 10:29
DX: J45.901 Unspecified asthma with (acute) exacerbation (principal); Z79.899 Other long term (current) drug therapy
CPT/HCPCS: 94640; 99282; J7512

== ENCOUNTER 2019-08-22 23:00 | Emergency (ER) | payer SELFPAY ==
[2019-08-23] MEDS ORDERED: dexAMETHasone 20 MG/5 ML VIAL IM ONE (00:18)
[2019-08-23] MEDS ORDERED: ALBUTEROL 2.5 MG/3 ML NEBU IH ONE (00:19)
[2019-08-23] MEDS ORDERED: IPRATROPIUM 0.02% NEBU 2.5 ML IH ONE (00:19)
--- NOTE | 2019-08-23 00:29 | Emergency Department Report ---
ED Asthma HPI - General Chief Complaint: Adult Asthma Stated Complaint: SOB Time Seen by Provider: 08/23/19 00:14 Source: patient Mode of arrival: Ambulatory Limitations: No Limitations - History of Present Illness Initial Comments: Mr. Garcia is a 39 y/o aam with hx of asthma who presents for sob wheezing x 2 days, pt denies fever or chills, no n/v. p states symptoms exacerbated by environmental exposure, symptoms relieved by rest. pt rates symptoms as 4/10. vital signs: Blood Pressure: HR: 77. B/P: , Temp: 98.3, O2 sat: 99% MD Complaint: "asthma attack", shortness of breath Onset/Timin -: days(s) Asthma History: childhood onset Severity: moderate Context: ran out of meds Associated Symptoms: dry cough Treatments Prior to Arrival: other (none ) - Related Data Current Asthma Therapy: inhaled bronchodilator Previous Rx's Medication Instructions Recorded Last Taken Type ALBUTEROL NEB's [Proventil 0.083% 5 mg IH TID PRN #20 neb 08/07/19 Unknown Rx NEBS] Albuterol INH(or & Nicu Only) 2 puff IH QID PRN #1 inhalation 08/07/19 Unknown Rx [ProAir HFA Inhaler] predniSONE [Deltasone] 20 mg PO DAILY #5 tablet 08/07/19 Unknown Rx Albuterol INH(or & Nicu Only) 2 puff IH QID PRN #8.5 gram 08/23/19 Unknown Rx [ProAir HFA Inhaler] Azithromycin [Zithromax Z-GLADIS] 250 mg PO DAILY #6 tab 08/23/19 Unknown Rx Benzonatate [Tessalon Perles] 100 mg PO Q8HR PRN #30 capsule 08/23/19 Unknown Rx Ibuprofen [Motrin 800 MG tab] 800 mg PO Q8HR PRN #30 tablet 08/23/19 Unknown Rx predniSONE [Deltasone] 40 mg PO QDAY #10 tab 08/23/19 Unknown Rx Allergies Allergy/AdvReac Type Severity Reaction Status Date / Time No Known Allergies Allergy Verified 07/15/18 18:36 ED Review of Systems ROS: Stated complaint: SOB Other details as noted in HPI Constitutional: denies: chills, fever Eyes: denies: eye pain, eye discharge, vision change ENT: congestion. denies: ear pain, throat pain Respiratory: cough, shortness of breath, wheezing Cardiovascular: denies: chest pain, palpitations Endocrine: no symptoms reported Gastrointestinal: denies: abdominal pain, nausea, vomiting, diarrhea Genitourinary: denies: urgency, dysuria Musculoskeletal: denies: back pain, joint swelling, arthralgia Skin: denies: rash, lesions Neurological: denies: headache, weakness, paresthesias Psychiatric: denies: anxiety, depression Hematological/Lymphatic: denies: easy bleeding, easy bruising ED Past Medical Hx - Past Medical History Hx Asthma: Yes - Social History Smoking Status: Never Smoker Substance Use Type: None - Medications Home Medications: Home Medications Medication Instructions Recorded Confirmed Last Taken Type ALBUTEROL NEB's [Proventil 0.083% 5 mg IH TID PRN #20 neb 08/07/19 Unknown Rx NEBS] Albuterol INH(or & Nicu Only) 2 puff IH QID PRN #1 inhalation 08/07/19 Unknown Rx [ProAir HFA Inhaler] predniSONE [Deltasone] 20 mg PO DAILY #5 tablet 08/07/19 Unknown Rx Albuterol INH(or & Nicu Only) 2 puff IH QID PRN #8.5 gram 08/23/19 Unknown Rx [ProAir HFA Inhaler] Azithromycin [Zithromax Z-GLADIS] 250 mg PO DAILY #6 tab 08/23/19 Unknown Rx Benzonatate [Tessalon Perles] 100 mg PO Q8HR PRN #30 capsule 08/23/19 Unknown Rx Ibuprofen [Motrin 800 MG tab] 800 mg PO Q8HR PRN #30 tablet 08/23/19 Unknown Rx predniSONE [Deltasone] 40 mg PO QDAY #10 tab 08/23/19 Unknown Rx ED Physical Exam - General Limitations: No Limitations General appearance: alert, in no apparent distress - Head Head exam: Present: atraumatic, normocephalic - Eye Eye exam: Present: normal appearance, PERRL, EOMI Pupils: Present: normal accommodation - ENT ENT exam: Present: mucous membranes moist - Neck Neck exam: Present: normal inspection, full ROM. Absent: tenderness - Respiratory Respiratory exam: Present: wheezes, prolonged expiratory. Absent: respiratory distress, rales, rhonchi, stridor, chest wall tenderness - Cardiovascular Cardiovascular Exam: Present: regular rate, normal rhythm, normal heart sounds. Absent: systolic murmur, diastolic murmur, rubs, gallop - GI/Abdominal GI/Abdominal exam: Present: soft, normal bowel sounds. Absent: distended, tenderness, bruit, hernia - Rectal Rectal exam: Present: deferred - Extremities Exam Extremities exam: Present: normal inspection, full ROM, normal capillary refill. Absent: tenderness - Back Exam Back exam: Present: normal inspection, full ROM, muscle spasm. Absent: tenderness, CVA tenderness (R), CVA tenderness (L) - Neurological Exam Neurological exam: Present: alert, oriented X3, CN II-XII intact, normal gait - Psychiatric Psychiatric exam: Present: normal affect, normal mood - Skin Skin exam: Present: warm, dry, intact, normal color. Absent: rash ED Course Vital Signs 08/23/19 00:29 Pulse Rate [ 77 Bilateral] Respiratory 22 Rate [Bilateral ] ED Medical Decision Making - Radiology Data Radiology results: report reviewed, image reviewed Breathing is improved, there is no fever or cough, wheezing is improved plan: refill albuterol, prednisone, azithromycin, ibuprofen, tessalon, follow up with pcp in 2-3 days. Critical care attestation.: If time is entered above; I have spent that time in minutes in the direct care of this critically ill patient, excluding procedure time. ED Disposition Clinical Impression: Active asthma, Bronchitis Disposition: TO HOME OR SELFCARE Is pt being admited?: No Does the pt Need Aspirin: No Condition: Stable Instructions: Asthma (ED), Chronic Bronchitis (ED) Prescriptions: predniSONE [Deltasone] 40 mg PO QDAY #10 tab Ibuprofen [Motrin 800 MG tab] 800 mg PO Q8HR PRN #30 tablet PRN Reason: pain Albuterol INH(or & Nicu Only) [ProAir HFA Inhaler] 2 puff IH QID PRN #8.5 gram PRN Reason: Shortness Of Breath Benzonatate [Tessalon Perles] 100 mg PO Q8HR PRN #30 capsule PRN Reason: Cough Azithromycin [Zithromax Z-GLADIS] 250 mg PO DAILY #6 tab Referrals: ELIEL MASSEY MD [Staff Physician] - 3-5 Days Forms: Work/School Release Form(ED) Time of Disposition: 02:11
[2019-08-23 02:23] VITALS: BP 120/76
== END 2019-08-23 02:22 | disposition home or self-care (01) ==
LOC: ED 23:00
DX: J44.9 Chronic obstructive pulmonary disease, unspecified (principal)
CPT/HCPCS: 94640; 96372; 99283; J1100; 94644

== ENCOUNTER 2019-10-12 09:02 | Emergency (ER) | payer SELFPAY ==
[2019-10-12 09:11] VITALS: BP 104/74
--- NOTE | 2019-10-12 09:43 | XRay Report ---
CHEST 2 VIEWS INDICATION / CLINICAL INFORMATION: SOB, hx asthma. COMPARISON: 09/06/2019. FINDINGS: SUPPORT DEVICES: None. HEART / MEDIASTINUM: No significant abnormality. LUNGS / PLEURA: No significant pulmonary or pleural abnormality. No pneumothorax. ADDITIONAL FINDINGS: No significant additional findings. IMPRESSION: 1. No acute findings. Signer Name: Norberot Kevin MD Signed: 10/12/2019 9:38 AM Workstation Name: [id number]
[2019-10-12] MEDS ORDERED: predniSONE 50 MG TAB PO STA (15:29)
[2019-10-12] MEDS ORDERED: IPRATROPIUM/ALBUTEROL SULFATE 3 ML AMPUL.NEB IH ONE (15:29)
--- NOTE | 2019-10-12 15:29 | Emergency Department Report ---
ED ENT HPI - General Chief complaint: Adult Asthma Stated complaint: ASTHMA Time Seen by Provider: 10/12/19 14:32 Source: patient Mode of arrival: Ambulatory Limitations: No Limitations - History of Present Illness Initial comments: 39-year-old F Haitian male with a past medical history of asthma presents emergency department complaining of having asthma exacerbation of the last 6 couple days which he thinks was triggered by aggressive tract infection he ran out of all of his home medications and needs a refill which was the primary reason for his visit. Reports no hemoptysis no hematemesis no hematochezia has been having a productive cough over the last couple days reports no chest pain or palpitations no vomiting - Related Data Previous Rx's Medication Instructions Recorded Last Taken Type predniSONE [Deltasone] 20 mg PO DAILY #5 tablet 08/07/19 Unknown Rx ALBUTEROL NEB's [Proventil 0.083% 2.5 mg IH QID PRN #25 vial 08/23/19 Unknown Rx NEBS] Albuterol Mdi (or & Nicu Only) 2 puff IH QID PRN #8.5 gram 08/23/19 Unknown Rx [ProAir HFA Inhaler] Azithromycin [Zithromax Z-GLADIS] 250 mg PO DAILY #6 tab 08/23/19 Unknown Rx Benzonatate [Tessalon Perles] 100 mg PO Q8HR PRN #30 capsule 08/23/19 Unknown Rx Ibuprofen [Motrin 800 MG tab] 800 mg PO Q8HR PRN #30 tablet 08/23/19 Unknown Rx predniSONE [Deltasone] 40 mg PO QDAY #10 tab 08/23/19 Unknown Rx ALBUTEROL NEB's [Proventil 0.083% 5 mg IH TID PRN #75 ml 09/06/19 Unknown Rx NEBS] Albuterol Mdi (or & Nicu Only) 2 puff IH QID PRN #1 inhalation 09/06/19 Unknown Rx [ProAir HFA Inhaler] methylPREDNISolone [Medrol 4MG 4 mg PO DAILY #21 tab.ds.pk 09/06/19 Unknown Rx DOSEPAK (21 tabs)] ALBUTEROL NEB's [Proventil 0.083% 2.5 mg IH TID PRN #30 neb 09/28/19 Unknown Rx NEBS] Albuterol Mdi (or & Nicu Only) 2 puff IH QID PRN #1 inhalation 09/28/19 Unknown Rx [ProAir HFA Inhaler] Montelukast [Singulair] 10 mg PO QPM #14 tablet 09/28/19 Unknown Rx predniSONE [Deltasone] 50 mg PO QDAY #5 tab 09/28/19 Unknown Rx ALBUTEROL NEB's [Proventil 0.083% 2.5 mg IH TID PRN #30 neb 10/12/19 Unknown Rx NEBS] Budesonide/Formoterol Fumarate 1 inhalation IH DAILY #1 hfa.aer.ad 10/12/19 Unknown Rx [Symbicort 160-4.5 Mcg Inhaler] Montelukast [Singulair] 10 mg PO QPM #14 tablet 10/12/19 Unknown Rx predniSONE [Deltasone] 50 mg PO QDAY #5 tab 10/12/19 Unknown Rx Allergies Allergy/AdvReac Type Severity Reaction Status Date / Time No Known Allergies Allergy Verified 07/15/18 18:36 ED Dental HPI - General Chief complaint: Adult Asthma Stated complaint: ASTHMA Time Seen by Provider: 10/12/19 14:32 Source: patient Mode of arrival: Ambulatory Limitations: No Limitations - Related Data Previous Rx's Medication Instructions Recorded Last Taken Type predniSONE [Deltasone] 20 mg PO DAILY #5 tablet 08/07/19 Unknown Rx ALBUTEROL NEB's [Proventil 0.083% 2.5 mg IH QID PRN #25 vial 08/23/19 Unknown Rx NEBS] Albuterol Mdi (or & Nicu Only) 2 puff IH QID PRN #8.5 gram 08/23/19 Unknown Rx [ProAir HFA Inhaler] Azithromycin [Zithromax Z-GLADIS] 250 mg PO DAILY #6 tab 08/23/19 Unknown Rx Benzonatate [Tessalon Perles] 100 mg PO Q8HR PRN #30 capsule 08/23/19 Unknown Rx Ibuprofen [Motrin 800 MG tab] 800 mg PO Q8HR PRN #30 tablet 08/23/19 Unknown Rx predniSONE [Deltasone] 40 mg PO QDAY #10 tab 08/23/19 Unknown Rx ALBUTEROL NEB's [Proventil 0.083% 5 mg IH TID PRN #75 ml 09/06/19 Unknown Rx NEBS] Albuterol Mdi (or & Nicu Only) 2 puff IH QID PRN #1 inhalation 09/06/19 Unknown Rx [ProAir HFA Inhaler] methylPREDNISolone [Medrol 4MG 4 mg PO DAILY #21 tab.ds.pk 09/06/19 Unknown Rx DOSEPAK (21 tabs)] ALBUTEROL NEB's [Proventil 0.083% 2.5 mg IH TID PRN #30 neb 09/28/19 Unknown Rx NEBS] Albuterol Mdi (or & Nicu Only) 2 puff IH QID PRN #1 inhalation 09/28/19 Unknown Rx [ProAir HFA Inhaler] Montelukast [Singulair] 10 mg PO QPM #14 tablet 09/28/19 Unknown Rx predniSONE [Deltasone] 50 mg PO QDAY #5 tab 09/28/19 Unknown Rx ALBUTEROL NEB's [Proventil 0.083% 2.5 mg IH TID PRN #30 neb 10/12/19 Unknown Rx NEBS] Budesonide/Formoterol Fumarate 1 inhalation IH DAILY #1 hfa.aer.ad 10/12/19 Unknown Rx [Symbicort 160-4.5 Mcg Inhaler] Montelukast [Singulair] 10 mg PO QPM #14 tablet 10/12/19 Unknown Rx predniSONE [Deltasone] 50 mg PO QDAY #5 tab 10/12/19 Unknown Rx Allergies Allergy/AdvReac Type Severity Reaction Status Date / Time No Known Allergies Allergy Verified 07/15/18 18:36 ED Review of Systems ROS: Stated complaint: ASTHMA Other details as noted in HPI Constitutional: denies: chills, fever Eyes: denies: eye pain, eye discharge, vision change ENT: denies: ear pain, throat pain Respiratory: cough, wheezing. denies: shortness of breath Cardiovascular: denies: chest pain, palpitations Endocrine: no symptoms reported Gastrointestinal: denies: abdominal pain, nausea, diarrhea Genitourinary: denies: urgency, dysuria Musculoskeletal: denies: back pain, joint swelling, arthralgia Skin: denies: rash, lesions Neurological: denies: headache, weakness, paresthesias Psychiatric: denies: anxiety, depression Hematological/Lymphatic: denies: easy bleeding, easy bruising ED Past Medical Hx - Past Medical History Previous Medical History?: Yes Hx Asthma: Yes - Social History Smoking Status: Never Smoker Substance Use Type: None - Medications Home Medications: Home Medications Medication Instructions Recorded Confirmed Last Taken Type predniSONE [Deltasone] 20 mg PO DAILY #5 tablet 08/07/19 Unknown Rx ALBUTEROL NEB's [Proventil 0.083% 2.5 mg IH QID PRN #25 vial 08/23/19 Unknown Rx NEBS] Albuterol Mdi (or & Nicu Only) 2 puff IH QID PRN #8.5 gram 08/23/19 Unknown Rx [ProAir HFA Inhaler] Azithromycin [Zithromax Z-GLADIS] 250 mg PO DAILY #6 tab 08/23/19 Unknown Rx Benzonatate [Tessalon Perles] 100 mg PO Q8HR PRN #30 capsule 08/23/19 Unknown Rx Ibuprofen [Motrin 800 MG tab] 800 mg PO Q8HR PRN #30 tablet 08/23/19 Unknown Rx predniSONE [Deltasone] 40 mg PO QDAY #10 tab 08/23/19 Unknown Rx ALBUTEROL NEB's [Proventil 0.083% 5 mg IH TID PRN #75 ml 09/06/19 Unknown Rx NEBS] Albuterol Mdi (or & Nicu Only) 2 puff IH QID PRN #1 inhalation 09/06/19 Unknown Rx [ProAir HFA Inhaler] methylPREDNISolone [Medrol 4MG 4 mg PO DAILY #21 tab.ds.pk 09/06/19 Unknown Rx DOSEPAK (21 tabs)] ALBUTEROL NEB's [Proventil 0.083% 2.5 mg IH TID PRN #30 neb 09/28/19 Unknown Rx NEBS] Albuterol Mdi (or & Nicu Only) 2 puff IH QID PRN #1 inhalation 09/28/19 Unknown Rx [ProAir HFA Inhaler] Montelukast [Singulair] 10 mg PO QPM #14 tablet 09/28/19 Unknown Rx predniSONE [Deltasone] 50 mg PO QDAY #5 tab 09/28/19 Unknown Rx ALBUTEROL NEB's [Proventil 0.083% 2.5 mg IH TID PRN #30 neb 10/12/19 Unknown Rx NEBS] Budesonide/Formoterol Fumarate 1 inhalation IH DAILY #1 hfa.aer.ad 10/12/19 Unknown Rx [Symbicort 160-4.5 Mcg Inhaler] Montelukast [Singulair] 10 mg PO QPM #14 tablet 10/12/19 Unknown Rx predniSONE [Deltasone] 50 mg PO QDAY #5 tab 10/12/19 Unknown Rx ED Physical Exam - General Limitations: No Limitations General appearance: alert, in no apparent distress - Head Head exam: Present: atraumatic, normocephalic - Eye Eye exam: Present: normal appearance, PERRL, EOMI Pupils: Present: normal accommodation - ENT ENT exam: Present: normal exam, mucous membranes moist, TM's normal bilaterally - Neck Neck exam: Present: normal inspection - Respiratory Respiratory exam: Present: normal lung sounds bilaterally, wheezes. Absent: respiratory distress - Cardiovascular Cardiovascular Exam: Present: regular rate, normal rhythm. Absent: systolic murmur, diastolic murmur, rubs, gallop - GI/Abdominal GI/Abdominal exam: Present: soft, normal bowel sounds - Rectal Rectal exam: Present: deferred - Extremities Exam Extremities exam: Present: normal inspection - Back Exam Back exam: Present: normal inspection - Neurological Exam Neurological exam: Present: alert, oriented X3 - Psychiatric Psychiatric exam: Present: normal affect, normal mood - Skin Skin exam: Present: warm, dry, intact, normal color. Absent: rash ED Course Vital Signs 10/12/19 09:11 Temperature 97.9 F Pulse Rate 86 Respiratory 18 Rate Blood Pressure 104/74 [Right] O2 Sat by Pulse 98 Oximetry ED Medical Decision Making - Radiology Data Radiology results: report reviewed INDICATION / CLINICAL INFORMATION: SOB, hx asthma. COMPARISON: 09/06/2019. FINDINGS: SUPPORT DEVICES: None. HEART / MEDIASTINUM: No significant abnormality. LUNGS / PLEURA: No significant pulmonary or pleural abnormality. No pneumothorax. ADDITIONAL FINDINGS: No significant additional findings. IMPRESSION: 1. No acute findings. Signer Name: Norberto Kevin MD Signed: 10/12/2019 9:38 AM Workstation Name: [id number] Transcribed By: SHABBIR Dictated By: Norberto Kevin MD Electronically Authenticated By: Norberto Kevin MD Signed Date/Time: 10/12/19937 DD/ 7 - Medical Decision Making No altered mental status, saddle respirations, belly breathing or other signs of impending ventilatory failure. No intubations or recent admissions to the hospital for asthma. Unlikely pneumonia, CHF, COPD, GERD Workup Review include a chest x-ray which was normal she also received steroids and albuterol Therapies: Prednisone 50 mg PO. Albuterol nebulizer Reassessment: Patient improved with albuterol and ipratropium in less than 3 hours. Disposition: Discharge home with return precautions. Advised to follow up with primary care physician within next 24-48 hours. Aside from this acute exacerbation patient has been well controlled on baseline home regimen. Rx short steroid course, albuterol, Singulair, Flovent Critical care attestation.: If time is entered above; I have spent that time in minutes in the direct care of this critically ill patient, excluding procedure time. ED Disposition Clinical Impression: Asthma exacerbation Disposition: - TO HOME OR SELFCARE Is pt being admited?: No Does the pt Need Aspirin: No Condition: Stable Instructions: Asthma (ED) Prescriptions: predniSONE [Deltasone] 50 mg PO QDAY #5 tab ALBUTEROL NEB's [Proventil 0.083% NEBS] 2.5 mg IH TID PRN #30 neb PRN Reason: Wheezing Montelukast [Singulair] 10 mg PO QPM #14 tablet Budesonide/Formoterol Fumarate [Symbicort 160-4.5 Mcg Inhaler] 1 inhalation IH DAILY #1 hfa.aer.ad Referrals: PRIMARY CARE, [Primary Care Provider] - 3-5 Days [facility] [Provider Group] - 2-3 Days
== END 2019-10-12 16:07 | disposition home or self-care (01) ==
LOC: ED 09:02
DX: J45.901 Unspecified asthma with (acute) exacerbation (principal)
CPT/HCPCS: 71046; 99283; J7512; 94640

== ENCOUNTER 2020-03-17 08:18 | Emergency (ER) | payer SELFPAY ==
[2020-03-17 08:29] VITALS: BP 117/81
[2020-03-17] MEDS ORDERED: dexAMETHasone 20 MG/5 ML VIAL IM ONE (10:30)
[2020-03-17] MEDS ORDERED: IPRATROPIUM 0.02% NEBU 2.5 ML IH ONE (10:30)
[2020-03-17] MEDS ORDERED: ALBUTEROL 2.5 MG/3 ML NEBU IH ONE (10:30)
--- NOTE | 2020-03-17 10:31 | Emergency Department Report ---
ED General Adult HPI - General Chief complaint: Adult Asthma Stated complaint: ASTHMA/RT SIDE TOOTHACHE Time Seen by Provider: 03/17/20 10:30 Source: patient Mode of arrival: Ambulatory Limitations: No Limitations - History of Present Illness Initial comments: Patient is a 40-year-old male presents emergency room complaints of an asthma exacerbation that began a few days ago. He has associated wheezing, shortness of breath, chest tightness, occasional dry cough. He states he has been using his nebulizer machine and inhaler at home but continues to have wheezing. He denies any fever, nausea, vomiting, diarrhea, abdominal pain, chills. He denies any sick contacts or recent travel. He also presents for a tooth ache. He states he has had a right lower tooth ache since last night. He last saw a dentist a year ago. he denies any facial swelling, difficulty speaking, difficulty swallowing. no other past medical history. No allergies to me dications. - Related Data Previous Rx's Medication Instructions Recorded Last Taken Type predniSONE [Deltasone] 20 mg PO DAILY #5 tablet 08/07/19 Unknown Rx ALBUTEROL NEB's [Proventil 0.083% 2.5 mg IH QID PRN #25 vial 08/23/19 Unknown Rx NEBS] Albuterol Mdi (or & Nicu Only) 2 puff IH QID PRN #8.5 gram 08/23/19 Unknown Rx [ProAir HFA Inhaler] Azithromycin [Zithromax Z-GLADIS] 250 mg PO DAILY #6 tab 08/23/19 Unknown Rx Benzonatate [Tessalon Perles] 100 mg PO Q8HR PRN #30 capsule 08/23/19 Unknown Rx Ibuprofen [Motrin 800 MG tab] 800 mg PO Q8HR PRN #30 tablet 08/23/19 Unknown Rx predniSONE [Deltasone] 40 mg PO QDAY #10 tab 08/23/19 Unknown Rx ALBUTEROL NEB's [Proventil 0.083% 5 mg IH TID PRN #75 ml 09/06/19 Unknown Rx NEBS] Albuterol Mdi (or & Nicu Only) 2 puff IH QID PRN #1 inhalation 09/06/19 Unknown Rx [ProAir HFA Inhaler] methylPREDNISolone [Medrol 4MG 4 mg PO DAILY #21 tab.ds.pk 09/06/19 Unknown Rx DOSEPAK (21 tabs)] ALBUTEROL NEB's [Proventil 0.083% 2.5 mg IH TID PRN #30 neb 09/28/19 Unknown Rx NEBS] Albuterol Mdi (or & Nicu Only) 2 puff IH QID PRN #1 inhalation 09/28/19 Unknown Rx [ProAir HFA Inhaler] Montelukast [Singulair] 10 mg PO QPM #14 tablet 09/28/19 Unknown Rx predniSONE [Deltasone] 50 mg PO QDAY #5 tab 09/28/19 Unknown Rx ALBUTEROL NEB's [Proventil 0.083% 2.5 mg IH TID PRN #30 neb 10/12/19 Unknown Rx NEBS] Budesonide/Formoterol Fumarate 1 inhalation IH DAILY #1 hfa.aer.ad 10/12/19 Unknown Rx [Symbicort 160-4.5 Mcg Inhaler] Montelukast [Singulair] 10 mg PO QPM #14 tablet 10/12/19 Unknown Rx predniSONE [Deltasone] 50 mg PO QDAY #5 tab 10/12/19 Unknown Rx Albuterol Sulfate [Albuterol 0.63% 0.63 mg IH TID PRN #1 box 03/17/20 Unknown Rx NEBS] Chlorhexidine Mouthwash [Peridex] 15 ml MM BID #1 bottle 03/17/20 Unknown Rx Ibuprofen [Motrin 600 MG tab] 600 mg PO Q8H PRN #20 tablet 03/17/20 Unknown Rx Penicillin Vk [Veetids TAB] 500 mg PO QID 7 Days #56 tablet 03/17/20 Unknown Rx Prednisone [predniSONE 10 mg 10 mg PO .TAPER #1 tab.ds.pk 03/17/20 Unknown Rx (6-Day Pack, 21 Tabs)] Allergies Allergy/AdvReac Type Severity Reaction Status Date / Time No Known Allergies Allergy Verified 07/15/18 18:36 ED Review of Systems ROS: Stated complaint: ASTHMA/RT SIDE TOOTHACHE Other details as noted in HPI Comment: All other systems reviewed and negative ED Past Medical Hx - Past Medical History Previous Medical History?: Yes Hx Asthma: Yes - Social History Smoking Status: Never Smoker Substance Use Type: None - Medications Home Medications: Home Medications Medication Instructions Recorded Confirmed Last Taken Type predniSONE [Deltasone] 20 mg PO DAILY #5 tablet 08/07/19 Unknown Rx ALBUTEROL NEB's [Proventil 0.083% 2.5 mg IH QID PRN #25 vial 08/23/19 Unknown Rx NEBS] Albuterol Mdi (or & Nicu Only) 2 puff IH QID PRN #8.5 gram 08/23/19 Unknown Rx [ProAir HFA Inhaler] Azithromycin [Zithromax Z-GLADIS] 250 mg PO DAILY #6 tab 08/23/19 Unknown Rx Benzonatate [Tessalon Perles] 100 mg PO Q8HR PRN #30 capsule 08/23/19 Unknown Rx Ibuprofen [Motrin 800 MG tab] 800 mg PO Q8HR PRN #30 tablet 08/23/19 Unknown Rx predniSONE [Deltasone] 40 mg PO QDAY #10 tab 08/23/19 Unknown Rx ALBUTEROL NEB's [Proventil 0.083% 5 mg IH TID PRN #75 ml 09/06/19 Unknown Rx NEBS] Albuterol Mdi (or & Nicu Only) 2 puff IH QID PRN #1 inhalation 09/06/19 Unknown Rx [ProAir HFA Inhaler] methylPREDNISolone [Medrol 4MG 4 mg PO DAILY #21 tab.ds.pk 09/06/19 Unknown Rx DOSEPAK (21 tabs)] ALBUTEROL NEB's [Proventil 0.083% 2.5 mg IH TID PRN #30 neb 09/28/19 Unknown Rx NEBS] Albuterol Mdi (or & Nicu Only) 2 puff IH QID PRN #1 inhalation 09/28/19 Unknown Rx [ProAir HFA Inhaler] Montelukast [Singulair] 10 mg PO QPM #14 tablet 09/28/19 Unknown Rx predniSONE [Deltasone] 50 mg PO QDAY #5 tab 09/28/19 Unknown Rx ALBUTEROL NEB's [Proventil 0.083% 2.5 mg IH TID PRN #30 neb 10/12/19 Unknown Rx NEBS] Budesonide/Formoterol Fumarate 1 inhalation IH DAILY #1 hfa.aer.ad 10/12/19 Unknown Rx [Symbicort 160-4.5 Mcg Inhaler] Montelukast [Singulair] 10 mg PO QPM #14 tablet 10/12/19 Unknown Rx predniSONE [Deltasone] 50 mg PO QDAY #5 tab 10/12/19 Unknown Rx Albuterol Sulfate [Albuterol 0.63% 0.63 mg IH TID PRN #1 box 03/17/20 Unknown Rx NEBS] Chlorhexidine Mouthwash [Peridex] 15 ml MM BID #1 bottle 03/17/20 Unknown Rx Ibuprofen [Motrin 600 MG tab] 600 mg PO Q8H PRN #20 tablet 03/17/20 Unknown Rx Penicillin Vk [Veetids TAB] 500 mg PO QID 7 Days #56 tablet 03/17/20 Unknown Rx Prednisone [predniSONE 10 mg 10 mg PO .TAPER #1 tab.ds.pk 03/17/20 Unknown Rx (6-Day Pack, 21 Tabs)] ED Physical Exam - General Limitations: No Limitations General appearance: alert, in no apparent distress - Head Head exam: Present: atraumatic, normocephalic - Eye Eye exam: Present: normal appearance - ENT ENT exam: Present: normal orophraynx, mucous membranes moist, other (very poor dentition, multiple areas of dental carries and dental decay, there is erythema and edema of the right lower gumline adjacent to dental carries, no fluctuance, no facial edema, uvula is mildine, no uvular edema or deviation, no tongue eleva tion, no trismus, no muffled voice, no facial daniel) - Respiratory Respiratory exam: Present: wheezes (bilateral expiratory wheezing), prolonged expiratory. Absent: respiratory distress, rales, rhonchi, stridor, chest wall tenderness, accessory muscle use - Cardiovascular Cardiovascular Exam: Present: regular rate, normal rhythm, normal heart sounds. Absent: systolic murmur, diastolic murmur, rubs, gallop - Neurological Exam Neurological exam: Present: alert, oriented X3 - Psychiatric Psychiatric exam: Present: normal affect, normal mood - Skin Skin exam: Present: warm, dry, intact ED Course Vital Signs 03/17/20 03/17/20 08:28 12:02 Temperature 98.0 F Pulse Rate 83 Pulse Rate [ 83 Anterior Bilateral Throughout] Respiratory 16 Rate Respiratory 24 Rate [Anterior Bilateral Throughout] Respiratory 22 Rate [Posterior ] Blood Pressure 117/81 [Right] O2 Sat by Pulse 99 Oximetry ED Medical Decision Making - Radiology Data Radiology results: report reviewed Ordering Physician: ARNULFO REESE Date of Service: 03/17/20 Procedure(s): XR chest routine 2V Accession Number(s): [id number] cc: ARNULFO REESE Fluoro Time In Minutes: CHEST 2 VIEWS INDICATION / CLINICAL INFORMATION: sob. COMPARISON: 10/12/2019 FINDINGS: SUPPORT DEVICES: None. HEART / MEDIASTINUM: No significant abnormality. LUNGS / PLEURA: No significant pulmonary or pleural abnormality. No pneumothorax. ADDITIONAL FINDINGS: No significant additional findings. IMPRESSION: No significant abnormality or interval change from 10/12/2019 Signer Name: Panda Banks MD FACR Signed: 03/17/2020 10:44 AM Workstation Name: [email or web address] Transcribed By: MS Dictated By: Panda Banks MD Electronically Authenticated By: Panda Banks MD Signed Date/Time: 03/17/201043 DD/ 42 TD/TT: - Medical Decision Making Patient is a 40-year-old male presents emergency room complaints of an asthma exacerbation that began a few days ago. He has associated wheezing, shortness of breath, chest tightness, occasional dry cough. He states he has been using his nebulizer machine and inhaler at home but continues to have wheezing. He denies any fever, nausea, vomiting, diarrhea, abdominal pain, chills. He denies any sick contacts or recent travel. He also presents for a tooth ache. He states he has had a right lower tooth ache since last night. He last saw a dentist a year ago. he denies any facial swelling, difficulty speaking, difficulty swallowing. no other past medical history. No allergies to medications. vitals are normal. on exam: very poor dentition, multiple areas of dental carries and dental decay, there is erythema and edema of the right lower gumline adjacent to dental carries, no fluctuance, no facial edema, uvula is mildine, no uvular edema or deviation, no tongue elevation, no trismus, no muffled voice, no facial edema, expiratory wheezing, no rales, no rhonchi, no stridor, no respiratory distress, no accessory muscle use. Examination appears consistent with dental caries and gingivitis. No dental abscess at this time. Examination also consistent with asthma exacerbation. Chest x-ray ordered prior to my examination with no acute process. Patient given continuous neb treatment and steroids IM improved and he was feeling much better, wheezing had improved on exam. Patient given prescription for penicillin VK, chlorhexidine, ibuprofen, nebulizer solution, prednisone. Advised patient Please take medication as prescribed. Please follow-up with a primary care doctor. Please follow-up with a dentist. It is very important that you follow-up with a dentist. Return to emergency room for any new or worsening symptoms. Critical care attestation.: If time is entered above; I have spent that time in minutes in the direct care of this critically ill patient, excluding procedure time. ED Disposition Clinical Impression: Dental caries, Gingivitis, Poor dentition Asthma exacerbation Qualifiers: Asthma severity: unspecified severity Asthma persistence: unspecified Qualified Code(s): J45.901 - Unspecified asthma with (acute) exacerbation Disposition: TO HOME OR SELFCARE Is pt being admited?: No Does the pt Need Aspirin: No Condition: Stable Instructions: Asthma, Adult Additional Instructions: Please take medication as prescribed. Please follow-up with a primary care doctor. Please follow-up with a dentist. It is very important that you follow- up with a dentist. Return to emergency room for any new or worsening symptoms. Prescriptions: Albuterol Sulfate [Albuterol 0.63% NEBS] 0.63 mg IH TID PRN #1 box PRN Reason: wheezing Ibuprofen [Motrin 600 MG tab] 600 mg PO Q8H PRN #20 tablet PRN Reason: Pain Chlorhexidine Mouthwash [Peridex] 15 ml MM BID #1 bottle Prednisone [predniSONE 10 mg (6-Day Pack, 21 Tabs)] 10 mg PO .TAPER #1 tab.ds.pk Penicillin Vk [Veetids TAB] 500 mg PO QID 7 Days #56 tablet Referrals: [facility] [Outside] - 2-3 Days [facility] [Outside] - 2-3 Days FILIBERTO BAIN MD [Staff Physician] - 2-3 Days [facility] [Provider Group] - 2-3 Days Time of Disposition: 11:28 Print Language: MARSHALLESE
--- NOTE | 2020-03-17 10:48 | XRay Report ---
CHEST 2 VIEWS INDICATION / CLINICAL INFORMATION: sob. COMPARISON: 10/12/2019 FINDINGS: SUPPORT DEVICES: None. HEART / MEDIASTINUM: No significant abnormality. LUNGS / PLEURA: No significant pulmonary or pleural abnormality. No pneumothorax. ADDITIONAL FINDINGS: No significant additional findings. IMPRESSION: No significant abnormality or interval change from 10/12/2019 Signer Name: Panda Banks MD FACR Signed: 03/17/2020 10:44 AM Workstation Name: [id number]
== END 2020-03-17 12:23 | disposition home or self-care (01) ==
LOC: ED 08:18
DX: J45.901 Unspecified asthma with (acute) exacerbation (principal); K02.9 Dental caries, unspecified; K05.10 Chronic gingivitis, plaque induced; K08.9 Disorder of teeth and supporting structures, unspecified; Z79.899 Other long term (current) drug therapy
CPT/HCPCS: 71046; 94644; 96372; 99283; J1100

== ENCOUNTER 2020-04-01 09:26 | Emergency (ER) | payer SELFPAY ==
[2020-04-01 10:06] VITALS: BP 107/77
[2020-04-01] MEDS ORDERED: IPRATROPIUM 0.02% NEBU 2.5 ML IH ONE (10:06)
[2020-04-01] MEDS ORDERED: ALBUTEROL 2.5 MG/3 ML NEBU IH ONE ×2 (10:06→12:26)
[2020-04-01] MEDS ORDERED: dexAMETHasone 20 MG/5 ML VIAL IM ONE (10:06)
--- NOTE | 2020-04-01 10:35 | Emergency Department Report ---
ED Asthma HPI - General Chief Complaint: Adult Asthma Stated Complaint: ASTHAM PUI?: No Time Seen by Provider: 04/01/20 10:05 Source: patient Mode of arrival: Ambulatory Limitations: No Limitations - History of Present Illness Initial Comments: The patient was evaluated in the emergency department for symptoms described in the history of present illness. He/she was evaluated in the context of the global COVID-19 pandemic, which necessitated consideration that the patient might be at risk for infection with the virus that causes COVID-19. Institutional protocols and algorithms that pertain to the evaluation of patients at risk for COVID-19 are in a state of rapid change based on information released by regulatory bodies including the CDC and federal and state organizations. These policies and algorithms were followed during the patient's care in the emergency department. Please note that these policies, procedures and recommendations changed on a rapid basis. 40-year-old -Mongolian male with a known history of asthma presents to the emergency room stating that last night he started having shortness of breath difficulty breathing and wheezing. Patient states that he has a history of asthma and has been taking his medication without any positive results. Patient reports a history of intubation x2 and hospitalization x1. Patient denies any fever chills no nausea no vomiting but does admit to chest pain and back pain with shortness of breath. As well as a nonproductive cough. Patient is unaware of any Covid contacts. MD Complaint: "asthma attack", wheezing -: Last night Asthma History: history of prior ED visit, previously intubated Severity: severe Associated Symptoms: dry cough, chest pain. denies: fever - Related Data Current Asthma Therapy: inhaled bronchodilator Previous Rx's Medication Instructions Recorded Last Taken Type predniSONE [Deltasone] 20 mg PO DAILY #5 tablet 08/07/19 Unknown Rx Albuterol Mdi (or & Nicu Only) 2 puff IH QID PRN #8.5 gram 08/23/19 Unknown Rx [ProAir HFA Inhaler] Azithromycin [Zithromax Z-GLADIS] 250 mg PO DAILY #6 tab 08/23/19 Unknown Rx Ibuprofen [Motrin 800 MG tab] 800 mg PO Q8HR PRN #30 tablet 08/23/19 Unknown Rx predniSONE [Deltasone] 40 mg PO QDAY #10 tab 08/23/19 Unknown Rx ALBUTEROL NEB's [Proventil 0.083% 5 mg IH TID PRN #75 ml 09/06/19 Unknown Rx NEBS] Albuterol Mdi (or & Nicu Only) 2 puff IH QID PRN #1 inhalation 09/06/19 Unknown Rx [ProAir HFA Inhaler] ALBUTEROL NEB's [Proventil 0.083% 2.5 mg IH TID PRN #30 neb 09/28/19 Unknown Rx NEBS] Albuterol Mdi (or & Nicu Only) 2 puff IH QID PRN #1 inhalation 09/28/19 Unknown Rx [ProAir HFA Inhaler] Montelukast [Singulair] 10 mg PO QPM #14 tablet 09/28/19 Unknown Rx predniSONE [Deltasone] 50 mg PO QDAY #5 tab 09/28/19 Unknown Rx ALBUTEROL NEB's [Proventil 0.083% 2.5 mg IH TID PRN #30 neb 10/12/19 Unknown Rx NEBS] Budesonide/Formoterol Fumarate 1 inhalation IH DAILY #1 hfa.aer.ad 10/12/19 Unknown Rx [Symbicort 160-4.5 Mcg Inhaler] predniSONE [Deltasone] 50 mg PO QDAY #5 tab 10/12/19 Unknown Rx Albuterol Sulfate [Albuterol 0.63% 0.63 mg IH TID PRN #1 box 03/17/20 Unknown Rx NEBS] Chlorhexidine Mouthwash [Peridex] 15 ml MM BID #1 bottle 03/17/20 Unknown Rx Ibuprofen [Motrin 600 MG tab] 600 mg PO Q8H PRN #20 tablet 03/17/20 Unknown Rx Penicillin Vk [Veetids TAB] 500 mg PO QID 7 Days #56 tablet 03/17/20 Unknown Rx Prednisone [predniSONE 10 mg 10 mg PO .TAPER #1 tab.ds.pk 03/17/20 Unknown Rx (6-Day Pack, 21 Tabs)] ALBUTEROL NEB's [Proventil 0.083% 2.5 mg IH QID PRN #1 box 04/01/20 Unknown Rx NEBS] Benzonatate [Tessalon Perles] 100 mg PO Q8HR PRN #30 capsule 04/01/20 Unknown Rx Montelukast [Singulair] 10 mg PO QPM #14 tablet 04/01/20 Unknown Rx methylPREDNISolone [Medrol 4MG 4 mg PO DAILY #21 tab.ds.pk 04/01/20 Unknown Rx DOSEPAK (21 tabs)] Allergies Allergy/AdvReac Type Severity Reaction Status Date / Time No Known Allergies Allergy Verified 07/15/18 18:36 ED Review of Systems ROS: Stated complaint: ASTHAM Other details as noted in HPI Comment: All other systems reviewed and negative ED Past Medical Hx - Past Medical History Hx Asthma: Yes - Social History Smoking Status: Unknown if ever smoked - Medications Home Medications: Home Medications Medication Instructions Recorded Confirmed Last Taken Type predniSONE [Deltasone] 20 mg PO DAILY #5 tablet 08/07/19 Unknown Rx Albuterol Mdi (or & Nicu Only) 2 puff IH QID PRN #8.5 gram 08/23/19 Unknown Rx [ProAir HFA Inhaler] Azithromycin [Zithromax Z-GLADIS] 250 mg PO DAILY #6 tab 08/23/19 Unknown Rx Ibuprofen [Motrin 800 MG tab] 800 mg PO Q8HR PRN #30 tablet 08/23/19 Unknown Rx predniSONE [Deltasone] 40 mg PO QDAY #10 tab 08/23/19 Unknown Rx ALBUTEROL NEB's [Proventil 0.083% 5 mg IH TID PRN #75 ml 09/06/19 Unknown Rx NEBS] Albuterol Mdi (or & Nicu Only) 2 puff IH QID PRN #1 inhalation 09/06/19 Unknown Rx [ProAir HFA Inhaler] ALBUTEROL NEB's [Proventil 0.083% 2.5 mg IH TID PRN #30 neb 09/28/19 Unknown Rx NEBS] Albuterol Mdi (or & Nicu Only) 2 puff IH QID PRN #1 inhalation 09/28/19 Unknown Rx [ProAir HFA Inhaler] Montelukast [Singulair] 10 mg PO QPM #14 tablet 09/28/19 Unknown Rx predniSONE [Deltasone] 50 mg PO QDAY #5 tab 09/28/19 Unknown Rx ALBUTEROL NEB's [Proventil 0.083% 2.5 mg IH TID PRN #30 neb 10/12/19 Unknown Rx NEBS] Budesonide/Formoterol Fumarate 1 inhalation IH DAILY #1 hfa.aer.ad 10/12/19 Unknown Rx [Symbicort 160-4.5 Mcg Inhaler] predniSONE [Deltasone] 50 mg PO QDAY #5 tab 10/12/19 Unknown Rx Albuterol Sulfate [Albuterol 0.63% 0.63 mg IH TID PRN #1 box 03/17/20 Unknown Rx NEBS] Chlorhexidine Mouthwash [Peridex] 15 ml MM BID #1 bottle 03/17/20 Unknown Rx Ibuprofen [Motrin 600 MG tab] 600 mg PO Q8H PRN #20 tablet 03/17/20 Unknown Rx Penicillin Vk [Veetids TAB] 500 mg PO QID 7 Days #56 tablet 03/17/20 Unknown Rx Prednisone [predniSONE 10 mg 10 mg PO .TAPER #1 tab.ds.pk 03/17/20 Unknown Rx (6-Day Pack, 21 Tabs)] ALBUTEROL NEB's [Proventil 0.083% 2.5 mg IH QID PRN #1 box 04/01/20 Unknown Rx NEBS] Benzonatate [Tessalon Perles] 100 mg PO Q8HR PRN #30 capsule 04/01/20 Unknown Rx Montelukast [Singulair] 10 mg PO QPM #14 tablet 04/01/20 Unknown Rx methylPREDNISolone [Medrol 4MG 4 mg PO DAILY #21 tab.ds.pk 04/01/20 Unknown Rx DOSEPAK (21 tabs)] ED Physical Exam - General Limitations: No Limitations General appearance: alert, in no apparent distress - Head Head exam: Present: atraumatic, normocephalic - Eye Eye exam: Present: normal appearance - ENT ENT exam: Present: mucous membranes moist - Neck Neck exam: Present: normal inspection, full ROM - Respiratory Respiratory exam: Present: wheezes, rales, prolonged expiratory - Cardiovascular Cardiovascular Exam: Present: normal rhythm, tachycardia. Absent: systolic murmur, diastolic murmur, rubs, gallop - GI/Abdominal GI/Abdominal exam: Present: soft - Back Exam Back exam: Present: full ROM - Neurological Exam Neurological exam: Present: alert, oriented X3, normal gait - Psychiatric Psychiatric exam: Present: normal affect, normal mood - Skin Skin exam: Present: warm, dry, intact, normal color. Absent: rash ED Course Vital Signs 04/01/20 10:02 Temperature 97.9 F Pulse Rate 115 H Respiratory 18 Rate Blood Pressure 107/77 O2 Sat by Pulse 97 Oximetry - Reevaluation(s) Reevaluation #1: 04/01/20 12:58 Patient reports that he feels much better now. ED Medical Decision Making - Radiology Data Radiology results: report reviewed Patient: SHAYNA ROBERSON MR#: Sadia [id number] : 1980 Acct:[id number] Age/Sex: 40 / M ADM Date: 04/01/20 Loc: ED Attending Dr: Ordering Physician: ARNULFO WHITE Date of Service: 04/01/20 Procedure(s): XR chest routine 2V Accession Number(s): [id number] cc: ARNULFO WHITE Fluoro Time In Minutes: CHEST 2 VIEWS INDICATION / CLINICAL INFORMATION: Shortness of breath dry cough and wheezing. COMPARISON: 03/17/2020 FINDINGS: SUPPORT DEVICES: None. HEART / MEDIASTINUM: No significant abnormality. LUNGS / PLEURA: No significant pulmonary or pleural abnormality. No pneumothorax. ADDITIONAL FINDINGS: No significant additional findings. IMPRESSION: 1. No acute findings. Signer Name: Azael Quick MD Signed: 04/01/2020 11:46 AM Workstation Name: [id number] Transcribed By: TL Dictated By: Azael Quick MD Electronically Authenticated By: Azael Quick MD Signed Date/Time: 04/01/20 1146 DD/ 1145 TD/TT: - Medical Decision Making 40-year-old -Mongolian male with a known history of asthma presents to the emergency room stating that last night he started having shortness of breath difficulty breathing and wheezing. Patient states that he has a history of asthma and has been taking his medication without any positive results. Patient reports a history of intubation x2 and hospitalization x1. Patient denies any fever chills no nausea no vomiting but does admit to chest pain and back pain with shortness of breath. As well as a nonproductive cough. Patient is unaware of any Covid contacts. DuoNeb dexamethasone has been ordered chest x-rays been ordered. Critical care attestation.: If time is entered above; I have spent that time in minutes in the direct care of this critically ill patient, excluding procedure time. ED Disposition Clinical Impression: Asthma Disposition: DC-01 TO HOME OR SELFCARE Is pt being admited?: No Does the pt Need Aspirin: No Condition: Stable Instructions: Asthma (ED), Asthma, Adult Additional Instructions: Please use your inhalers and medications as prescribed. Complete your your pr ednisone taper as prescribed. Follow-up with your primary care provider if his symptoms persist or gets worse. Prescriptions: methylPREDNISolone [Medrol 4MG DOSEPAK (21 tabs)] 4 mg PO DAILY #21 tab.ds.pk ALBUTEROL NEB's [Proventil 0.083% NEBS] 2.5 mg IH QID PRN #1 box PRN Reason: Wheezing Montelukast [Singulair] 10 mg PO QPM #14 tablet Benzonatate [Tessalon Perles] 100 mg PO Q8HR PRN #30 capsule PRN Reason: Cough Referrals: PRIMARY CARE, [Primary Care Provider] - 3-5 Days [facility] [Provider Group] - 3-5 Days Forms: Work/School Release Form(ED)
[2020-04-01] MEDS ORDERED: MAGNESIUM SULFATE 2 GM/50 ML BAG IV ONE (10:50)
--- NOTE | 2020-04-01 11:50 | XRay Report ---
CHEST 2 VIEWS INDICATION / CLINICAL INFORMATION: Shortness of breath dry cough and wheezing. COMPARISON: 03/17/2020 FINDINGS: SUPPORT DEVICES: None. HEART / MEDIASTINUM: No significant abnormality. LUNGS / PLEURA: No significant pulmonary or pleural abnormality. No pneumothorax. ADDITIONAL FINDINGS: No significant additional findings. IMPRESSION: 1. No acute findings. Signer Name: Azael Quick MD Signed: 04/01/2020 11:46 AM Workstation Name: [id number]
== END 2020-04-01 13:16 | disposition home or self-care (01) ==
LOC: ED 09:26
DX: J45.909 Unspecified asthma, uncomplicated (principal); Z79.899 Other long term (current) drug therapy
CPT/HCPCS: 71046; 94640; 96365; 96372; 99283; J1100; J3475

== ENCOUNTER 2020-04-03 19:15 | Emergency (ER) | payer SELFPAY ==
--- NOTE | 2020-04-03 19:35 | Event Note ---
ED Screening Note ED Screening Note: sob hx asthma This initial assessment/diagnostic orders/clinical plan/treatment(s) is/are subject to change based on patients health status, clinical progression and re- assessment by fellow clinical providers in the ED. Further treatment and workup at subsequent clinical providers discretion. Patient/guardian urged not to elope from the ED as their condition may be serious if not clinically assessed and managed. Initial orders include: felix melissa pna
[2020-04-03] MEDS ORDERED: ALBUTEROL 2.5 MG/3 ML NEBU IH ONE ×3 (19:57→22:57)
[2020-04-03] MEDS ORDERED: IPRATROPIUM 0.02% NEBU 2.5 ML IH ONE ×2 (19:57→20:10)
[2020-04-03 20:00] VITALS: BP 148/89
[2020-04-03] MEDS ORDERED: SODIUM CHLORIDE 0.9% 1000 ML 1,000 ML IV ONE (20:18)
[2020-04-03] MEDS ORDERED: methylPREDNISolone Sod Succinate 125 MG/2 ML INJ IV ONE (20:18)
[2020-04-03] MEDS ORDERED: MAGNESIUM SULFATE 2 GM/50 ML BAG IV ONE (20:18)
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
[2020-04-03 20:42] LABS: Basophils # (Auto) 0.1 K/mm3 (0.0-0.1); Basophils % (Auto) 0.8 % (0.0-1.8); Eosinophils # (Auto) 1.1 K/mm3 (0.0-0.4); Eosinophils % (Auto) 12.5 % (0.0-4.3); Hematocrit 43.1 % (35.5-45.6); Hemoglobin 14.7 gm/dl (11.8-15.2); Lymphocytes # (Auto) 3.1 K/mm3 (1.2-5.4); Lymphocytes % (Auto) 35.5 % (13.4-35.0); Mean Corpuscular HGB Conc 34 % (32-34); Mean Corpuscular Volume 94 fl (84-94); Monocytes # (Auto) 0.6 K/mm3 (0.0-0.8); Monocytes % (Auto) 6.5 % (0.0-7.3); Platelet Count 212 K/mm3 (140-440); Red Blood Count 4.58 M/mm3 (3.65-5.03); Red Cell Distribution Width 13.3 % (13.2-15.2)
[2020-04-03 21:00] LABS: BUN/Creatinine Ratio 8; Blood Urea Nitrogen 10 mg/dL (9-20); Calcium 9.4 mg/dL (8.4-10.2); Hemolysis Index 19
--- NOTE | 2020-04-03 23:55 | XRay Report ---
CHEST 1 VIEW 2316 INDICATION / CLINICAL INFORMATION: SOB COMPARISON: 04/01/2020 FINDINGS: SUPPORT DEVICES: None HEART / MEDIASTINUM: No significant abnormality. LUNGS / PLEURA: No significant pulmonary or pleural abnormality. No pneumothorax. ADDITIONAL FINDINGS: No significant additional findings. IMPRESSION: No significant acute abnormality Signer Name: Shaheen Koch MD Signed: 04/03/2020 11:51 PM Workstation Name: [id number]
== END 2020-04-04 01:00 | disposition home or self-care (01) ==
LOC: ED 19:15
DX: J45.901 Unspecified asthma with (acute) exacerbation (principal); Z79.899 Other long term (current) drug therapy
CPT/HCPCS: 36415; 71045; 80048; 85025; 94644; 96365; 96375; 99284; J2930; J3475; J7030

== ENCOUNTER 2020-07-07 05:51 | Emergency (ER) | payer SELFPAY ==
[2020-07-07 06:17] VITALS: BP 115/70
[2020-07-07] MEDS ORDERED: IPRATROPIUM 0.02% NEBU 2.5 ML IH ONE ×2 (07:11→09:22)
[2020-07-07] MEDS ORDERED: ALBUTEROL 2.5 MG/3 ML NEBU IH ONE ×2 (07:11→09:22)
--- NOTE | 2020-07-07 07:17 | Emergency Department Report ---
HPI - General Chief Complaint: Dyspnea/Respdistress Time Seen by Provider: 07/07/20 07:06 - HPI HPI: Room 18 Patient is a 40-year-old male present with a chief complaint of asthma attack. Patient states his symptom began last night with wheezing shortness of breath. Patient admits to a dry cough since last night as well. Patient denies history of fever. Patient was administered 5 mg albuterol and Decadron 20 mg IV in addition to magnesium 2 g by EMS prior to arrival. Patient states he still feels tight ED Past Medical Hx - Past Medical History Previous Medical History?: Yes Hx Asthma: Yes - Surgical History Past Surgical History?: No - Family History Family history: no significant - Social History Smoking Status: Former Smoker (None [id number]) Substance Use Type: None (Denies illicit drug use), Alcohol (Occasional) - Medications Home Medications: Home Medications Medication Instructions Recorded Confirmed Last Taken Type predniSONE [Deltasone] 20 mg PO DAILY #5 tablet 08/07/19 Unknown Rx Azithromycin [Zithromax Z-GLADIS] 250 mg PO DAILY #6 tab 08/23/19 Unknown Rx Ibuprofen [Motrin 800 MG tab] 800 mg PO Q8HR PRN #30 tablet 08/23/19 Unknown Rx ALBUTEROL NEB's [Proventil 0.083% 5 mg IH TID PRN #75 ml 09/06/19 Unknown Rx NEBS] Albuterol Mdi (or & Nicu Only) 2 puff IH QID PRN #1 inhalation 09/28/19 Unknown Rx [ProAir HFA Inhaler] Montelukast [Singulair] 10 mg PO QPM #14 tablet 09/28/19 Unknown Rx predniSONE [Deltasone] 50 mg PO QDAY #5 tab 09/28/19 Unknown Rx ALBUTEROL NEB's [Proventil 0.083% 2.5 mg IH TID PRN #30 neb 10/12/19 Unknown Rx NEBS] predniSONE [Deltasone] 50 mg PO QDAY #5 tab 10/12/19 Unknown Rx Chlorhexidine Mouthwash [Peridex] 15 ml MM BID #1 bottle 03/17/20 Unknown Rx Ibuprofen [Motrin 600 MG tab] 600 mg PO Q8H PRN #20 tablet 03/17/20 Unknown Rx Penicillin Vk [Veetids TAB] 500 mg PO QID 7 Days #56 tablet 03/17/20 Unknown Rx Prednisone [predniSONE 10 mg 10 mg PO .TAPER #1 tab.ds.pk 03/17/20 Unknown Rx (6-Day Pack, 21 Tabs)] ALBUTEROL NEB's [Proventil 0.083% 2.5 mg IH QID PRN #1 box 04/01/20 Unknown Rx NEBS] Benzonatate [Tessalon Perles] 100 mg PO Q8HR PRN #30 capsule 04/01/20 Unknown Rx Montelukast [Singulair] 10 mg PO QPM #14 tablet 04/01/20 Unknown Rx methylPREDNISolone [Medrol 4MG 4 mg PO DAILY #21 tab.ds.pk 04/01/20 Unknown Rx DOSEPAK (21 tabs)] ALBUTEROL NEB's [Proventil 0.083% 2.5 mg IH TID PRN #1 box 04/04/20 Unknown Rx NEBS] Albuterol Mdi (or & Nicu Only) 2 puff IH QID PRN #8.5 gram 04/04/20 Unknown Rx [ProAir HFA Inhaler] predniSONE [Deltasone] 20 mg PO BID #8 tab 04/04/20 Unknown Rx Albuterol Mdi (or & Nicu Only) 2 puff IH QID PRN #1 inhalation 07/07/20 Unknown Rx [ProAir HFA Inhaler] Albuterol Sulfate [Albuterol 0.63% 0.63 mg IH TID PRN #1 box 07/07/20 Unknown Rx NEBS] Budesonide/Formoterol Fumarate 1 inhalation IH DAILY #1 hfa.aer.ad 07/07/20 Unknown Rx [Symbicort 160-4.5 Mcg Inhaler] Prednisone [predniSONE 10 mg 10 mg PO .TAPER #1 tab.ds.pk 07/07/20 Unknown Rx (6-Day Pack, 21 Tabs)] ED Review of Systems ROS: Stated complaint: BASSAM Other details as noted in HPI Constitutional: denies: fever Eyes: denies: eye pain ENT: denies: throat pain Respiratory: shortness of breath, wheezing Cardiovascular: denies: chest pain Endocrine: no symptoms reported Gastrointestinal: denies: abdominal pain Genitourinary: denies: dysuria Musculoskeletal: denies: back pain Neurological: denies: headache Physical Exam - Physical Exam Vital Signs: Vital Signs 07/07/20 06:16 Temperature 98.6 F Pulse Rate 95 H Respiratory 14 Rate Blood Pressure 115/70 [Right] O2 Sat by Pulse 100 Oximetry Physical Exam: GENERAL: The patient is well-developed well-nourished male sitting on stretcher listening to music. [] HEENT: Normocephalic. Atraumatic. Extraocular motions are intact. Patient has moist mucous membranes. NECK: Supple. Trachea midline CHEST/LUNGS: Diffuse wheezing HEART/CARDIOVASCULAR: Regular. There is no tachycardia. There is no gallop rub or murmur. ABDOMEN: Abdomen is soft, nontender. Patient has normal bowel sounds. There is no abdominal distention. SKIN: There is no rash. There is no edema. There is no diaphoresis. NEURO: The patient is awake, alert, and oriented. The patient is cooperative. The patient has normal speech MUSCULOSKELETAL: There is no evidence of acute injury. ED Course Vital Signs 07/07/20 06:16 Temperature 98.6 F Pulse Rate 95 H Respiratory 14 Rate Blood Pressure 115/70 [Right] O2 Sat by Pulse 100 Oximetry - Reevaluation(s) Reevaluation #1: 07/07/20 13:09 Patient improved states she feels comfortable going home. Lungs have improved, occasional rhonchi ED Medical Decision Making - Lab Data Result diagrams: 07/07/20 09:46 07/07/20 09:46 - Radiology Data Radiology results: report reviewed (Chest x-ray), image reviewed (Chest x-ray) interpreted by me: Chest x-ray-no focal infiltrate, no pneumothorax. No foreign body seen [facility] [address] [place] [address] XRay Report Signed Patient: SHAYNA ROBERSON MR#: [id number] : 1980 Acct:[id number] Age/Sex: 40 / M ADM Date: 07/07/20 Loc: ED Attending Dr: Ordering Physician: JONG ELAINE MD Date of Service: 07/07/20 Procedure(s): XR chest 1V ap Accession Number(s): [id number] cc: JONG ELAINE MD Fluoro Time In Minutes: CHEST 1 VIEW 07/07/2020 7:31 AM INDICATION / CLINICAL INFORMATION: Shortness of breath, cough. COMPARISON: 04/03/2020 FINDINGS: SUPPORT DEVICES: None. HEART / MEDIASTINUM: No significant abnormality. LUNGS / PLEURA: No significant pulmonary or pleural abnormality. No pneumothorax. ADDITIONAL FINDINGS: No significant additional findings. IMPRESSION: 1. No acute findings. Signer Name: Leonel Ma MD Signed: 07/07/2020 8:32 AM Workstation Name: [id number] Transcribed By: CW Dictated By: JENARO MA MD Electronically Authenticated By: JENARO MA MD Signed Date/Time: 07/07/20831 DD/ 1 TD/TT: - Differential Diagnosis Asthma Critical care attestation.: If time is entered above; I have spent that time in minutes in the direct care of this critically ill patient, excluding procedure time. ED Disposition Clinical Impression: Acute asthma exacerbation Disposition: DC- TO HOME OR SELFCARE Is pt being admited?: No Does the pt Need Aspirin: No Condition: Stable Instructions: Asthma, Adult Additional Instructions: Return to the emergency department should you develop worsening symptoms, inability to tolerate food or liquids, high fever or any other concerns Prescriptions: Albuterol Sulfate [Albuterol 0.63% NEBS] 0.63 mg IH TID PRN #1 box PRN Reason: wheezing Prednisone [predniSONE 10 mg (6-Day Pack, 21 Tabs)] 10 mg PO .TAPER #1 tab.ds.pk Albuterol Mdi (or & Nicu Only) [ProAir HFA Inhaler] 2 puff IH QID PRN #1 inhalation PRN Reason: Shortness Of Breath Budesonide/Formoterol Fumarate [Symbicort 160-4.5 Mcg Inhaler] 1 inhalation IH DAILY #1 hfa.aer.ad Referrals: PRIMARY CAREMD [Primary Care Provider] - 3-5 Days [facility] [Provider Group] - 3-5 Days Time of Disposition: 13:11
--- NOTE | 2020-07-07 08:36 | XRay Report ---
CHEST 1 VIEW 07/07/2020 7:31 AM INDICATION / CLINICAL INFORMATION: Shortness of breath, cough. COMPARISON: 04/03/2020 FINDINGS: SUPPORT DEVICES: None. HEART / MEDIASTINUM: No significant abnormality. LUNGS / PLEURA: No significant pulmonary or pleural abnormality. No pneumothorax. ADDITIONAL FINDINGS: No significant additional findings. IMPRESSION: 1. No acute findings. Signer Name: Leonel Ma MD Signed: 07/07/2020 8:32 AM Workstation Name: [id number]
[2020-07-07 10:00] LABS: Hematocrit 45.5 % (35.5-45.6); Mean Corpuscular HGB Conc 33 % (32-34); Mean Corpuscular Volume 95 fl (84-94); Platelet Count 196 K/mm3 (140-440); Red Blood Count 4.76 M/mm3 (3.65-5.03); Red Cell Distribution Width 13.2 % (13.2-15.2)
[2020-07-07 10:43] LABS: BUN/Creatinine Ratio 11; Blood Urea Nitrogen 12 mg/dL (9-20); Calcium 8.8 mg/dL (8.4-10.2); Hemolysis Index 69
[2020-07-07 11:14] LABS: Total Cells Counted 100
[2020-07-07] MEDS ORDERED: TERBUTALINE 1 MG/1 ML INJ SUB-Q ONE (11:14)
[2020-07-07 11:15] LABS: RBC Morphology Normal; Toxic Granulation 2+; Toxic Vacuolation 1+
[2020-07-07 11:16] LABS: Platelet Estimate Consistent w Auto
== END 2020-07-07 13:20 | disposition home or self-care (01) ==
LOC: ED 05:51
DX: J45.901 Unspecified asthma with (acute) exacerbation (principal); Z79.899 Other long term (current) drug therapy; Z87.891 Personal history of nicotine dependence
CPT/HCPCS: 36415; 71045; 80048; 85007; 85025; 94640; 96372; 99284; J3105; 94644

== ENCOUNTER 2020-11-19 18:09 | Observation (INO) | payer OTHER ==
[2020-11-19] MEDS ORDERED: ALBUTEROL 2.5 MG/3 ML NEBU IH ONE (20:41)
[2020-11-19] MEDS ORDERED: IPRATROPIUM 0.02% NEBU 2.5 ML IH ONE (20:41)
[2020-11-19] MEDS ORDERED: methylPREDNISolone Sod Succinate 125 MG/2 ML INJ IV ONE (20:41)
[2020-11-19] MEDS ORDERED: BUDESONIDE 0.5 MG/2 ML NEBU IH ONE (20:41)
[2020-11-19] MEDS ORDERED: MAGNESIUM SULFATE 2 GM/50 ML BAG IV ONE (20:41)
[2020-11-19] MEDS ORDERED: SODIUM CHLORIDE 0.9% 1000 ML 1,000 ML IV ONE (20:51)
--- NOTE | 2020-11-19 20:51 | Emergency Department Report ---
ED General Adult HPI - General Chief complaint: Dyspnea/Respdistress Stated complaint: BASSAM Time Seen by Provider: 11/19/20 20:30 Source: patient, EMS Mode of arrival: Stretcher Limitations: No Limitations - History of Present Illness Initial comments: 40 y/o male pt w/ hx of asthma presents to ED via EMS w/ complaints of SOB and wheezing starting yesterday. Used nebulizer treatments at home with limited relief. Symptoms consistent with prior asthma exacerbations. Endorses exposure to sick contacts. Pt received his COVID-19 vaccination series. States he has been intubated for asthma exacerbation on multiple prior occasions. EMS administered beta agonist, steroids, magnesium, and Epinephrine en route with improvement. He was reportedly stridorous and hypoxic on arrival with O2 saturation in the high 80's on room air upon arrival. Denies fever, chills, nausea, vomiting, syncope, hemoptysis. Denies all other complaints at this time. - Related Data Previous Rx's Medication Instructions Recorded Last Taken Type predniSONE [Deltasone] 20 mg PO DAILY #5 tablet 08/07/19 Unknown Rx Azithromycin [Zithromax Z-GLADIS] 250 mg PO DAILY #6 tab 08/23/19 Unknown Rx Ibuprofen [Motrin 800 MG tab] 800 mg PO Q8HR PRN #30 tablet 08/23/19 Unknown Rx ALBUTEROL NEB's [Proventil 0.083% 5 mg IH TID PRN #75 ml 09/06/19 Unknown Rx NEBS] Albuterol Mdi (or & Nicu Only) 2 puff IH QID PRN #1 inhalation 09/28/19 Unknown Rx [ProAir HFA Inhaler] Montelukast [Singulair] 10 mg PO QPM #14 tablet 09/28/19 Unknown Rx predniSONE [Deltasone] 50 mg PO QDAY #5 tab 09/28/19 Unknown Rx ALBUTEROL NEB's [Proventil 0.083% 2.5 mg IH TID PRN #30 neb 10/12/19 Unknown Rx NEBS] predniSONE [Deltasone] 50 mg PO QDAY #5 tab 10/12/19 Unknown Rx Chlorhexidine Mouthwash [Peridex] 15 ml MM BID #1 bottle 03/17/20 Unknown Rx Ibuprofen [Motrin 600 MG tab] 600 mg PO Q8H PRN #20 tablet 03/17/20 Unknown Rx Penicillin Vk [Veetids TAB] 500 mg PO QID 7 Days #56 tablet 03/17/20 Unknown Rx Prednisone [predniSONE 10 mg 10 mg PO .TAPER #1 tab.ds.pk 03/17/20 Unknown Rx (6-Day Pack, 21 Tabs)] ALBUTEROL NEB's [Proventil 0.083% 2.5 mg IH QID PRN #1 box 04/01/20 Unknown Rx NEBS] Benzonatate [Tessalon Perles] 100 mg PO Q8HR PRN #30 capsule 04/01/20 Unknown Rx Montelukast [Singulair] 10 mg PO QPM #14 tablet 04/01/20 Unknown Rx methylPREDNISolone [Medrol 4MG 4 mg PO DAILY #21 tab.ds.pk 04/01/20 Unknown Rx DOSEPAK (21 tabs)] ALBUTEROL NEB's [Proventil 0.083% 2.5 mg IH TID PRN #1 box 04/04/20 Unknown Rx NEBS] Albuterol Mdi (or & Nicu Only) 2 puff IH QID PRN #8.5 gram 04/04/20 Unknown Rx [ProAir HFA Inhaler] predniSONE [Deltasone] 20 mg PO BID #8 tab 04/04/20 Unknown Rx Albuterol Mdi (or & Nicu Only) 2 puff IH QID PRN #1 inhalation 07/07/20 Unknown Rx [ProAir HFA Inhaler] Albuterol Sulfate [Albuterol 0.63% 0.63 mg IH TID PRN #1 box 07/07/20 Unknown Rx NEBS] Budesonide/Formoterol Fumarate 1 inhalation IH DAILY #1 hfa.aer.ad 07/07/20 Unknown Rx [Symbicort 160-4.5 Mcg Inhaler] Prednisone [predniSONE 10 mg 10 mg PO .TAPER #1 tab.ds.pk 07/07/20 Unknown Rx (6-Day Pack, 21 Tabs)] Allergies Allergy/AdvReac Type Severity Reaction Status Date / Time No Known Allergies Allergy Verified 07/15/18 18:36 ED Review of Systems ROS: Stated complaint: BASSAM Other details as noted in HPI Other: GENERAL: Negative for fever, chills, weight change, anorexia, fatigue. ENT: Negative for ear pain, difficulty hearing, sore throat, nasal congestion, epistaxis. CARDIOVASCULAR: Negative for chest pain, palpitations, lower extremity swelling. PULMONARY: Positive for cough, wheezing, shortness of breath. GASTROINTESTINAL: Negative for abdominal pain, nausea, vomiting, diarrhea, constipation. MUSCULOSKELETAL: Negative for joint pain, joint swelling, myalgias, back pain, neck pain. NEUROLOGICAL: Negative for headache, seizure, syncope, paresthesias, weakness. INTEGUMENTARY: Negative for erythema, rash, diaphoresis, laceration, ecchymosis. HEMATOLOGICAL: Negative for hemoptysis, hematemesis, hematochezia, hematuria. PSYCHIATRIC: Negative for hallucinations, suicidal ideation, homicidal ideation, anxiety, depression. ED Past Medical Hx - Past Medical History Hx Asthma: Yes - Surgical History Past Surgical History?: No - Social History Smoking Status: Never Smoker Substance Use Type: Alcohol - Medications Home Medications: Home Medications Medication Instructions Recorded Confirmed Last Taken Type predniSONE [Deltasone] 20 mg PO DAILY #5 tablet 08/07/19 Unknown Rx Azithromycin [Zithromax Z-GLADIS] 250 mg PO DAILY #6 tab 08/23/19 Unknown Rx Ibuprofen [Motrin 800 MG tab] 800 mg PO Q8HR PRN #30 tablet 08/23/19 Unknown Rx ALBUTEROL NEB's [Proventil 0.083% 5 mg IH TID PRN #75 ml 09/06/19 Unknown Rx NEBS] Albuterol Mdi (or & Nicu Only) 2 puff IH QID PRN #1 inhalation 09/28/19 Unknown Rx [ProAir HFA Inhaler] Montelukast [Singulair] 10 mg PO QPM #14 tablet 09/28/19 Unknown Rx predniSONE [Deltasone] 50 mg PO QDAY #5 tab 09/28/19 Unknown Rx ALBUTEROL NEB's [Proventil 0.083% 2.5 mg IH TID PRN #30 neb 10/12/19 Unknown Rx NEBS] predniSONE [Deltasone] 50 mg PO QDAY #5 tab 10/12/19 Unknown Rx Chlorhexidine Mouthwash [Peridex] 15 ml MM BID #1 bottle 03/17/20 Unknown Rx Ibuprofen [Motrin 600 MG tab] 600 mg PO Q8H PRN #20 tablet 03/17/20 Unknown Rx Penicillin Vk [Veetids TAB] 500 mg PO QID 7 Days #56 tablet 03/17/20 Unknown Rx Prednisone [predniSONE 10 mg 10 mg PO .TAPER #1 tab.ds.pk 03/17/20 Unknown Rx (6-Day Pack, 21 Tabs)] ALBUTEROL NEB's [Proventil 0.083% 2.5 mg IH QID PRN #1 box 04/01/20 Unknown Rx NEBS] Benzonatate [Tessalon Perles] 100 mg PO Q8HR PRN #30 capsule 04/01/20 Unknown Rx Montelukast [Singulair] 10 mg PO QPM #14 tablet 04/01/20 Unknown Rx methylPREDNISolone [Medrol 4MG 4 mg PO DAILY #21 tab.ds.pk 04/01/20 Unknown Rx DOSEPAK (21 tabs)] ALBUTEROL NEB's [Proventil 0.083% 2.5 mg IH TID PRN #1 box 04/04/20 Unknown Rx NEBS] Albuterol Mdi (or & Nicu Only) 2 puff IH QID PRN #8.5 gram 04/04/20 Unknown Rx [ProAir HFA Inhaler] predniSONE [Deltasone] 20 mg PO BID #8 tab 04/04/20 Unknown Rx Albuterol Mdi (or & Nicu Only) 2 puff IH QID PRN #1 inhalation 07/07/20 Unknown Rx [ProAir HFA Inhaler] Albuterol Sulfate [Albuterol 0.63% 0.63 mg IH TID PRN #1 box 07/07/20 Unknown Rx NEBS] Budesonide/Formoterol Fumarate 1 inhalation IH DAILY #1 hfa.aer.ad 07/07/20 Unknown Rx [Symbicort 160-4.5 Mcg Inhaler] Prednisone [predniSONE 10 mg 10 mg PO .TAPER #1 tab.ds.pk 07/07/20 Unknown Rx (6-Day Pack, 21 Tabs)] ED Physical Exam - General Limitations: No Limitations - Other Other exam information: General: Awake and alert. Breathing treatment in progress. Head: Atraumatic, normocephalic. Eyes: EOMI. Pupils are equal and round. Normal sclera and conjunctiva. ENT: Oral mucosa is moist. Normal pharyngeal exam. Neck: Supple. No lymphadenopathy. Pulmonary: Speaking in full sentences. Diffuse inspiratory and expiratory wheezing with diminished air movement throughout. No accessory muscle use. No stridor. Cardiac: Regular rate and rhythm. Pulses are palpable and equal bilaterally. No lower extremity cyanosis or edema. Skin: Warm and dry. No rashes. Abdomen: Soft, non-tender, non-protuberant. No guarding, rigidity, or rebound. Bowel sounds are normal. No organomegaly or masses noted. Back: Normal alignment. No CVA tenderness. Extremities: Symmetrical. Full range of motion intact. Neurological: Alert and oriented, appropriately interactive, no focal deficits. Psych: Cooperative. Appropriate mood and affect. Speech is evenly metered. Tho ughts are logically construed. ED Course Vital Signs 11/19/20 11/19/20 11/19/20 20:36 20:46 21:01 Pulse Rate 92 H 99 H 100 H Pulse Rate [ Bilateral] Respiratory 14 18 16 Rate Respiratory Rate [Bilateral ] Blood Pressure 106/61 120/77 O2 Sat by Pulse 100 97 Oximetry 11/19/20 11/19/20 11/19/20 21:02 21:15 21:31 Pulse Rate 93 H 89 Pulse Rate [ 98 H Bilateral] Respiratory 16 10 L Rate Respiratory 20 Rate [Bilateral ] Blood Pressure 119/66 102/72 O2 Sat by Pulse 99 100 Oximetry 11/19/20 11/19/20 11/19/20 21:45 22:00 22:15 Pulse Rate 97 H 100 H 93 H Pulse Rate [ Bilateral] Respiratory 14 19 12 Rate Respiratory Rate [Bilateral ] Blood Pressure 119/75 94/59 97/72 O2 Sat by Pulse 100 100 99 Oximetry 11/19/20 22:31 Pulse Rate 102 H Pulse Rate [ Bilateral] Respiratory 14 Rate Respiratory Rate [Bilateral ] Blood Pressure 103/64 O2 Sat by Pulse 100 Oximetry ED Medical Decision Making - Medical Decision Making Differential diagnosis including but not limited to: 20:41: Ordered monitor and storage bin tender, continuous pulse oximetry, supplemental O2, peripheral IV, magnesium, steroids, breathing treatment. Refractory Mixer and respiratory therapist aware. 21:57: On re-evaluation, patient's symptoms have improved. Repeat cardiopulmonary exam with improved air movement however continues to exhibit wheezing and coarse breath sounds. Chest x-ray is negative. Patient has received a total of 3 breathing treatments, 1 round of epinephrine, 2 rounds of magnesium, and 2 rounds of steroids. Patient has been intubated for his asthma multiple times on prior occasions. Recommend hospital admission for continued asthma management due to high risk of respiratory compromise. Paged hospitalist for admission. 22:15: Case discussed with hospitalist, who agrees to admit. Hospitalist requested baseline labs. Patient expressed understanding and is agreeable to plan of care. Critical Care Time: Yes Critical care time in (mins) excluding proc time.: 74 Critical care attestation.: If time is entered above; I have spent that time in minutes in the direct care of this critically ill patient, excluding procedure time. Critical Care Time: 74 minutes ED Disposition Clinical Impression: Acute respiratory failure with hypoxia Asthma exacerbation Qualifiers: Asthma severity: unspecified severity Asthma persistence: unspecified Qualified Code(s): J45.901 - Unspecified asthma with (acute) exacerbation Disposition: 09 ADMITTED INPATIENT Is pt being admited?: Yes Does the pt Need Aspirin: No Condition: Serious Time of Disposition: 22:15
--- NOTE | 2020-11-19 21:42 | XRay Report ---
CHEST 1 VIEW 11/19/2020 8:35 PM INDICATION / CLINICAL INFORMATION: severe asthma, hypoxia. COMPARISON: 07/07/2020 FINDINGS: SUPPORT DEVICES: None. HEART / MEDIASTINUM: No significant abnormality. LUNGS / PLEURA: No significant pulmonary or pleural abnormality. No pneumothorax. ADDITIONAL FINDINGS: No significant additional findings. IMPRESSION: 1. No acute findings. Signer Name: Og Rodriguez DO Signed: 11/19/2020 9:37 PM Workstation Name: [id number]
[2020-11-19] MEDS ORDERED: MORPHINE 4 MG/1 ML INJ IV PRN (23:00)
[2020-11-19] MEDS ORDERED: ONDANSETRON 4 MG/2 ML INJ IV PRN (23:00)
[2020-11-19] MEDS ORDERED: MAGNESIUM HYDROXIDE (MOM) ORAL LIQD UDC PO PRN (23:00)
[2020-11-19] MEDS ORDERED: ACETAMINOPHEN 325 MG TAB PO PRN (23:00)
[2020-11-19] MEDS ORDERED: MORPHINE 2 MG/1 ML INJ IV PRN (23:00)
--- NOTE | 2020-11-19 23:09 | History and Physical Report ---
History of Present Illness Date of examination: 11/19/20 Date of admission: 11/19/2020 Chief complaint: Shortness of Breath History of present illness: 40-year-old -French male with known history of asthma who has also been intubated in the past before presents to the emergency room today complaining of shortness of breath and wheezing which has been ongoing for the past 2 days. He has used his nebulizers at home without any significant improvement. Patient denies any fever or chills, denies any chest pain, no headache or dizziness and no diaphoresis. He has had some mild cough which is nonproductive. He denies any sick contacts and no recent travel. Denies any contact with anyone with COVID-19. Patient has been fully vaccinated against COVID-19. En route to the hospital patient was given nebulizing treatments, magnesium and steroid by EMS. Upon arrival in the emergency room patient was hypoxic with oxygen saturation in in the high 80s. Chest x-ray is unremarkable. Patient is being admitted for asthma exacerbation with hypoxia. Past History Past Medical History: other (Asthma) Past Surgical History: denies: No surgical history Social history: denies: no significant social history Family history: denies: no significant family history Medications and Allergies Allergies Allergy/AdvReac Type Severity Reaction Status Date / Time No Known Allergies Allergy Verified 07/15/18 18:36 Home Medications Medication Instructions Recorded Confirmed Last Taken Type predniSONE [Deltasone] 20 mg PO DAILY #5 tablet 08/07/19 Unknown Rx Azithromycin [Zithromax Z-GLADIS] 250 mg PO DAILY #6 tab 08/23/19 Unknown Rx Ibuprofen [Motrin 800 MG tab] 800 mg PO Q8HR PRN #30 tablet 08/23/19 Unknown Rx ALBUTEROL NEB's [Proventil 0.083% 5 mg IH TID PRN #75 ml 09/06/19 Unknown Rx NEBS] Albuterol Mdi (or & Nicu Only) 2 puff IH QID PRN #1 inhalation 09/28/19 Unknown Rx [ProAir HFA Inhaler] Montelukast [Singulair] 10 mg PO QPM #14 tablet 09/28/19 Unknown Rx predniSONE [Deltasone] 50 mg PO QDAY #5 tab 09/28/19 Unknown Rx ALBUTEROL NEB's [Proventil 0.083% 2.5 mg IH TID PRN #30 neb 10/12/19 Unknown Rx NEBS] predniSONE [Deltasone] 50 mg PO QDAY #5 tab 10/12/19 Unknown Rx Chlorhexidine Mouthwash [Peridex] 15 ml MM BID #1 bottle 03/17/20 Unknown Rx Ibuprofen [Motrin 600 MG tab] 600 mg PO Q8H PRN #20 tablet 03/17/20 Unknown Rx Penicillin Vk [Veetids TAB] 500 mg PO QID 7 Days #56 tablet 03/17/20 Unknown Rx Prednisone [predniSONE 10 mg 10 mg PO .TAPER #1 tab.ds.pk 03/17/20 Unknown Rx (6-Day Pack, 21 Tabs)] ALBUTEROL NEB's [Proventil 0.083% 2.5 mg IH QID PRN #1 box 04/01/20 Unknown Rx NEBS] Benzonatate [Tessalon Perles] 100 mg PO Q8HR PRN #30 capsule 04/01/20 Unknown Rx Montelukast [Singulair] 10 mg PO QPM #14 tablet 04/01/20 Unknown Rx methylPREDNISolone [Medrol 4MG 4 mg PO DAILY #21 tab.ds.pk 04/01/20 Unknown Rx DOSEPAK (21 tabs)] ALBUTEROL NEB's [Proventil 0.083% 2.5 mg IH TID PRN #1 box 04/04/20 Unknown Rx NEBS] Albuterol Mdi (or & Nicu Only) 2 puff IH QID PRN #8.5 gram 04/04/20 Unknown Rx [ProAir HFA Inhaler] predniSONE [Deltasone] 20 mg PO BID #8 tab 04/04/20 Unknown Rx Albuterol Mdi (or & Nicu Only) 2 puff IH QID PRN #1 inhalation 07/07/20 Unknown Rx [ProAir HFA Inhaler] Albuterol Sulfate [Albuterol 0.63% 0.63 mg IH TID PRN #1 box 07/07/20 Unknown Rx NEBS] Budesonide/Formoterol Fumarate 1 inhalation IH DAILY #1 hfa.aer.ad 07/07/20 Unknown Rx [Symbicort 160-4.5 Mcg Inhaler] Prednisone [predniSONE 10 mg 10 mg PO .TAPER #1 tab.ds.pk 07/07/20 Unknown Rx (6-Day Pack, 21 Tabs)] Review of Systems Constitutional: no fever, no chills Ears, nose, mouth and throat: no nasal congestion, no sore throat Cardiovascular: no chest pain, no palpitations Respiratory: cough, shortness of breath Gastrointestinal: no abdominal pain, no nausea, no vomiting, no diarrhea Genitourinary Male: no dysuria, no hematuria, no flank pain, no nocturia Musculoskeletal: no neck pain, no low back pain Integumentary: no rash, no pruritis Neurological: no headaches, no confusion Psychiatric: no anxiety, no depression Endocrine: no polydipsia, no polyuria, no nocturia Exam - Constitutional Vitals: Temp Pulse Resp BP Pulse Ox 102 H 14 103/64 100 11/19/20 22:31 11/19/20 22:31 11/19/20 22:31 11/19/20 22:31 General appearance: Present: no acute distress, well-nourished - EENT Eyes: Present: PERRL, EOM intact. Absent: scleral icterus ENT: hearing intact, clear oral mucosa, dentition normal - Neck Neck: Present: supple, normal ROM - Respiratory Respiratory effort: labored Respiratory: bilateral: wheezing - Cardiovascular Rhythm: regular Heart Sounds: Present: S1 & S2. Absent: gallop, systolic murmur, diastolic murmur, rub, click - Extremities Extremities: no ischemia, pulses intact, pulses symmetrical, No edema, normal temperature, normal color, Full ROM Peripheral Pulses: within normal limits - Abdominal General gastrointestinal: Present: soft, non-tender, non-distended, normal bowel sounds. Absent: mass - Integumentary Integumentary: Present: clear, warm, dry. Absent: rash - Musculoskeletal Musculoskeletal: strength equal bilaterally - Psychiatric Psychiatric: appropriate mood/affect, intact judgment & insight, memory intact, cooperative - Neurologic Neurologic: CNII-XII intact, no focal deficits, moves all extremities Results - Labs CBC & Chem 7: 11/19/20 23:00 11/19/20 23:00 Assessment and Plan - Patient Problems (1) Acute respiratory failure with hypoxia Current Visit: Yes Status: Acute Plan to address problem: Secondary to the asthma exacerbation. Patient placed on oxygen and will keep O2 saturation greater or equal to 94%. (2) Asthma exacerbation Current Visit: Yes Status: Acute Qualifiers: Asthma severity: unspecified severity Asthma persistence: unspecified Qualified Code(s): J45.901 - Unspecified asthma with (acute) exacerbation Plan to address problem: Patient has been placed on nebulizing treatment and IV steroid. We will place consult to pulmonology for evaluation and recommendation. (3) DVT prophylaxis Current Visit: Yes Status: Acute Plan to address problem: Patient placed on subcutaneous heparin. (4) Full code status Current Visit: Yes Status: Acute Plan to address problem: Patient is full code.
[2020-11-19 23:44] LABS: Hemoglobin 14.5 gm/dl (11.8-15.2); Mean Corpuscular HGB Conc 33 % (32-34); Mean Corpuscular Volume 98 fl (84-94); Platelet Count 204 K/mm3 (140-440); Red Blood Count 4.52 M/mm3 (3.65-5.03); Red Cell Distribution Width 14.1 % (13.2-15.2)
[2020-11-19 23:49] LABS: Alanine Aminotransferase 21 units/L (7-56); Albumin 4.2 g/dL (3.9-5); BUN/Creatinine Ratio 7; Blood Urea Nitrogen 8 mg/dL (9-20); Calcium 8.4 mg/dL (8.4-10.2); Hemolysis Index 184
[2020-11-20 01:34] LABS: RBC Morphology Normal; Total Cells Counted 100
[2020-11-20] MEDS: IPRATROPIUM/ALBUTEROL SULFATE 3 ML AMPUL.NEB IH SCH ×2 (04:07→08:06)
[2020-11-20] MEDS ORDERED: HEPARIN 5,000 UNIT/1 ML VIAL SUB-Q SCH (06:00)
[2020-11-20] MEDS ORDERED: methylPREDNISolone Sod Succinate 40 MG/1 ML INJ IV SCH (06:00)
[2020-11-20 06:39] LABS: Hematocrit 44.3 % (35.5-45.6); Hemoglobin 14.4 gm/dl (11.8-15.2); Mean Corpuscular HGB Conc 33 % (32-34); Mean Corpuscular Volume 96 fl (84-94); Platelet Count 226 K/mm3 (140-440); Red Blood Count 4.62 M/mm3 (3.65-5.03); Red Cell Distribution Width 13.8 % (13.2-15.2)
[2020-11-20 06:52] LABS: BUN/Creatinine Ratio 11; Blood Urea Nitrogen 10 mg/dL (9-20); Hemolysis Index 12
[2020-11-20 08:06] VITALS: BP 102/62
--- NOTE | 2020-11-20 09:05 | Discharge Summary ---
Providers - Providers Date of Admission: 11/19/20 23:00 Date of discharge: 11/20/20 Attending physician: LEX ZAMORA 11/20/20 06:47 Consult to Physician [CONS] Routine Comment: Consulting Provider: MELIDA COYNE Physician Instructions: Reason For Exam: Acute respiratory failure-asthma exac./ hypoxia Primary care physician: [facility] Hospitalization Reason for admission: SOB Condition: Serious Hospital course: 40-year-old -[place]anese male with known history of asthma who has also been intubated in the past before presents to the emergency room today complaining of shortness of breath and wheezing which has been ongoing for the past 2 days. He has used his nebulizers at home without any significant improvement. Pt. denied any contact with anyone with COVID-19. Patient has been fully vaccinated against COVID-19. En route to the hospital patient was given nebulizing treat ments, magnesium and steroid by EMS. Upon arrival in the emergency room patient was hypoxic with oxygen saturation in in the high 80s. Chest x-ray was unremarkable. Patient was admitted for asthma exacerbation with acute hypoxic respiratory failure. Pt with significant improvement with IV steroids. bronchodilators and nebs. Pt returned to baseline resp status with 98% sat on RA. Pt adamant about going home. Considering dramatic improvement and no further wheezing, pt d/c home. Dedicated d/c time 32 minutes Disposition: 01 HOME / SELF CARE / HOMELESS Final Discharge Diagnosis (Prints w/discharge instructions): asthma exac, acute hypoxic resp failure Core Measure Documentation - Palliative Care Palliative Care/ Comfort Measures: Not Applicable - Core Measures Any of the following diagnoses?: none Exam - Constitutional Vitals: Temp Pulse Resp BP Pulse Ox 97.6 F 90 16 102/62 98 11/20/20 08:06 11/20/20 08:09 11/20/20 08:09 11/20/20 07:13 11/20/20 08:10 General appearance: Present: no acute distress, well-nourished - EENT Eyes: Present: PERRL ENT: hearing intact, clear oral mucosa - Neck Neck: Present: supple, normal ROM - Respiratory Respiratory effort: normal Respiratory: bilateral: CTA - Cardiovascular Heart Sounds: Present: S1 & S2. Absent: rub, click - Extremities Extremities: pulses symmetrical, No edema Peripheral Pulses: within normal limits - Abdominal General gastrointestinal: Present: soft, non-tender, non-distended, normal bowel sounds Male genitourinary: Present: normal - Integumentary Integumentary: Present: clear, warm, dry - Musculoskeletal Musculoskeletal: gait normal, strength equal bilaterally - Psychiatric Psychiatric: appropriate mood/affect, intact judgment & insight - Neurologic Neurologic: CNII-XII intact, moves all extremities Plan Activity: advance as tolerated Weight Bearing Status: Weight Bear as Tolerated Diet: regular Follow up with: PRIMARY CAREMD [Primary Care Provider] - 7 Days MELIDA COYNE MD [Staff Physician] - 7 Days Prescriptions: Albuterol Sulfate [Albuterol 0.63% NEBS] 0.63 mg IH TID PRN #1 box PRN Reason: wheezing Prednisone [predniSONE 10 mg (6-Day Pack, 21 Tabs)] 10 mg PO .TAPER #1 tab.ds.pk Albuterol Mdi (or & Nicu Only) [ProAir HFA Inhaler] 2 puff IH QID PRN #1 inhalation PRN Reason: Shortness Of Breath Montelukast [Singulair] 10 mg PO QPM #14 tablet Budesonide/Formoterol Fumarate [Symbicort 160-4.5 Mcg Inhaler] 1 inhalation IH DAILY #1 hfa.aer.ad Benzonatate [Tessalon Perles] 100 mg PO Q8HR PRN #30 capsule PRN Reason: Cough Azithromycin [Zithromax Z-GLADIS] 250 mg PO DAILY #6 tab
[2020-11-20 10:08] LABS: Band Neutrophils # (Manual) 0.1 K/mm3; Total Cells Counted 100
[2020-11-20 10:10] LABS: Platelet Estimate Consistent w Auto; RBC Morphology Normal
== END 2020-11-20 10:15 | disposition home or self-care (01) ==
LOC: ED 18:09 → 4A 23:00
PROVIDERS: ADMIT Internal Medicine Geriatric Medicine; ATTEND Hospitalist
DX: J96.01 Acute respiratory failure with hypoxia (principal); J45.901 Unspecified asthma with (acute) exacerbation
CPT/HCPCS: 36415; 71045; 80048; 80053; 83735; 85025; 94640; 94644; 96365; 96372; 96375; 96376; 99291; G0378; J1644; J2270; J2920; J2930; J3475; J7030; 85007

== ENCOUNTER 2021-01-05 23:24 | Emergency (ER) | payer SELFPAY ==
[2021-01-05] MEDS ORDERED: IPRATROPIUM 0.02% NEBU 2.5 ML IH ONE (23:52)
[2021-01-05] MEDS ORDERED: ALBUTEROL 2.5 MG/3 ML NEBU IH ONE (23:52)
--- NOTE | 2021-01-06 | Emergency Department Report ---
HPI - General Chief Complaint: Dyspnea/Respdistress Time Seen by Provider: 01/05/21 23:48 - HPI HPI: 40-year-old -[place] male presents to the emergency department via EMS from work with complaint of shortness of breath, wheezing, and a dry cough that he believes is an asthma exacerbation. The patient has a history of asthma in which he has been intubated twice in the past. He has been using his albuterol inhaler without any relief. He has a nebulizer at home but did not have it available at work. He denies any fever, chest pain, lower extremity swelling, back pain, nausea, vomiting or diaphoresis. He is not a tobacco smoker. He is vaccinated against COVID-19. The patient received 5 mg of albuterol, 125 mg of Solu-Medrol, and 2 g of magnesium in route with EMS. ED Past Medical Hx - Past Medical History Hx Asthma: Yes - Social History Smoking Status: Never Smoker Substance Use Type: Alcohol - Medications Home Medications: Home Medications Medication Instructions Recorded Confirmed Last Taken Type Ibuprofen [Motrin 800 MG tab] 800 mg PO Q8HR PRN #30 tablet 08/23/19 Unknown Rx ALBUTEROL NEB's [Proventil 0.083% 5 mg IH TID PRN #75 ml 09/06/19 Unknown Rx NEBS] Montelukast [Singulair] 10 mg PO QPM #14 tablet 09/28/19 Unknown Rx ALBUTEROL NEB's [Proventil 0.083% 2.5 mg IH TID PRN #30 neb 10/12/19 Unknown Rx NEBS] Ibuprofen [Motrin 600 MG tab] 600 mg PO Q8H PRN #20 tablet 03/17/20 Unknown Rx Prednisone [predniSONE 10 mg 10 mg PO .TAPER #1 tab.ds.pk 03/17/20 Unknown Rx (6-Day Pack, 21 Tabs)] ALBUTEROL NEB's [Proventil 0.083% 2.5 mg IH TID PRN #1 box 04/04/20 Unknown Rx NEBS] Albuterol Mdi (or & Nicu Only) 2 puff IH QID PRN #1 inhalation 07/07/20 Unknown Rx [ProAir HFA Inhaler] Albuterol Mdi (or & Nicu Only) 2 puff IH QID PRN #1 inhalation 11/20/20 Unknown Rx [ProAir HFA Inhaler] Albuterol Sulfate [Albuterol 0.63% 0.63 mg IH TID PRN #1 box 11/20/20 Unknown Rx NEBS] Azithromycin [Zithromax Z-GLADIS] 250 mg PO DAILY #6 tab 11/20/20 Unknown Rx Benzonatate [Tessalon Perles] 100 mg PO Q8HR PRN #30 capsule 11/20/20 Unknown Rx Budesonide/Formoterol Fumarate 1 inhalation IH DAILY #1 hfa.aer.ad 11/20/20 Unknown Rx [Symbicort 160-4.5 Mcg Inhaler] Montelukast [Singulair] 10 mg PO QPM #14 tablet 11/20/20 Unknown Rx Prednisone [predniSONE 10 mg 10 mg PO .TAPER #1 tab.ds.pk 11/20/20 Unknown Rx (6-Day Pack, 21 Tabs)] ALBUTEROL NEB's [Proventil 0.083% 2.5 mg IH QID PRN #1 box 01/06/21 Unknown Rx NEBS] Albuterol Mdi (or & Nicu Only) 2 puff IH QID PRN #8.5 gram 01/06/21 Unknown Rx [ProAir HFA Inhaler] predniSONE [Deltasone] 20 mg PO BID #6 tab 01/06/21 Unknown Rx ED Review of Systems ROS: Stated complaint: ASTHMA Other details as noted in HPI Comment: All other systems reviewed and negative Constitutional: denies: chills, fever Eyes: denies: eye pain, vision change ENT: denies: ear pain, throat pain Respiratory: cough, shortness of breath, wheezing Cardiovascular: denies: chest pain, edema Gastrointestinal: denies: abdominal pain, vomiting Genitourinary: denies: dysuria, discharge Musculoskeletal: denies: back pain, arthralgia Skin: denies: rash, lesions Neurological: denies: headache, weakness Physical Exam - Physical Exam Vital Signs: Vital Signs 01/05/21 23:39 Temperature 98.1 F Pulse Rate 84 Respiratory 20 Rate Blood Pressure 114/80 [Left] O2 Sat by Pulse 99 Oximetry Physical Exam: GENERAL: The patient is well-developed well-nourished. HENT: Normocephalic. Atraumatic. Patient has moist mucous membranes. EYES: Extraocular motions are intact. NECK: Supple. Trachea is midline. CHEST/LUNGS: Moderate expiratory wheezing. No tachypnea or accessory muscle use. HEART/CARDIOVASCULAR: Regular. There is no tachycardia. There is no murmur. ABDOMEN: Abdomen is soft, nontender. Patient has normal bowel sounds. SKIN: Skin is warm and dry. NEURO: The patient is awake, alert, and oriented. The patient is cooperative. The patient has no focal neurologic deficits. Normal speech. MUSCULOSKELETAL: There is no tenderness or deformity. There is no limitation range of motion. ED Course Vital Signs 01/05/21 23:39 Temperature 98.1 F Pulse Rate 84 Respiratory 20 Rate Blood Pressure 114/80 [Left] O2 Sat by Pulse 99 Oximetry ED Medical Decision Making - Radiology Data Radiology results: image reviewed interpreted by me: Chest x-ray does not show any acute process. There are no pleural effusions, obvious pneumonia and there is no pneumothorax. No widened mediastinum. - Medical Decision Making This patient presents with wheezing, shortness of breath, coughing, that he fe els is an asthma exacerbation. He already received an albuterol breathing treatment, Solu-Medrol and magnesium in route with EMS. During my initial examination the patient has moderate expiratory wheezing. Chest x-ray does not show any pneumonia, pleural effusions, pneumothorax, widened mediastinum, or any other acute process. Patient was given a continuous breathing treatment and upon reevaluation he is feeling greatly improved and is clinically improved. There is only a slight expiratory wheeze that remains. Vital signs have been reassuring including being afebrile and no hypoxia. No desaturation with ambulation. The patient appears safe for discharge home at this time. He has been given a prescription for his albuterol inhaler and nebulizer treatment, and a course of steroids. He will return to the emergency department with any worsening of his symptoms or with any acute distress. Critical Care Time: No Critical care attestation.: If time is entered above; I have spent that time in minutes in the direct care of this critically ill patient, excluding procedure time. ED Disposition Clinical Impression: Asthma exacerbation Qualifiers: Asthma severity: unspecified severity Asthma persistence: unspecified Qualified Code(s): J45.901 - Unspecified asthma with (acute) exacerbation Disposition: HOME / SELF CARE / HOMELESS Is pt being admited?: No Condition: Stable Instructions: Bronchospasm, Adult, Asthma Attack Additional Instructions: Please follow-up with your primary care physician in the next few days. Return to the emergency department with any worsening of your symptoms, new or concerning symptoms not addressed during this current emergency department visit, or with any acute distress. Prescriptions: predniSONE [Deltasone] 20 mg PO BID #6 tab Albuterol Mdi (or & Nicu Only) [ProAir HFA Inhaler] 2 puff IH QID PRN #8.5 gram PRN Reason: Shortness Of Breath ALBUTEROL NEB's [Proventil 0.083% NEBS] 2.5 mg IH QID PRN #1 box PRN Reason: Wheezing Referrals: PRIMARY CARE, [Primary Care Provider] - 2-3 Days Time of Disposition: 02:09
--- NOTE | 2021-01-06 00:19 | XRay Report ---
CHEST 1 VIEW INDICATION / CLINICAL INFORMATION: SOB. Dyspnea FINDINGS: SUPPORT DEVICES: None. HEART / MEDIASTINUM: No significant abnormality. LUNGS / PLEURA: No significant pulmonary or pleural abnormality. No pneumothorax. ADDITIONAL FINDINGS: No significant additional findings. IMPRESSION: 1. No acute findings. Signer Name: Dany Cannon MD Signed: 01/06/2021 12:15 AM Workstation Name: [id number]
[2021-01-06 02:37] VITALS: BP 111/71
== END 2021-01-06 02:36 | disposition home or self-care (01) ==
LOC: ED 23:24
DX: J45.901 Unspecified asthma with (acute) exacerbation (principal)
CPT/HCPCS: 71045; 94640; 94644; 99284

== ENCOUNTER 2021-01-30 23:44 | Emergency (ER) | payer SELFPAY ==
[2021-01-30] MEDS ORDERED: IPRATROPIUM 0.02% NEBU 2.5 ML IH ONE (23:59)
[2021-01-30] MEDS ORDERED: ALBUTEROL 2.5 MG/3 ML NEBU IH ONE (23:59)
[2021-01-31] MEDS ORDERED: predniSONE 20 MG TAB PO ONE
--- NOTE | 2021-01-31 00:03 | Emergency Department Report ---
HPI - General Chief Complaint: Adult Asthma Time Seen by Provider: 01/30/21 23:53 - HPI HPI: Room 35 The patient is a 41-year-old male present with a chief complaint of "dealing with some asthma." The patient states since approximately 20: 00 this evening he had exacerbation of his asthma which included wheezing and shortness of breath. Patient missed an occasional cough productive of clear sputum. Patient states he was using his MDI but only helps temporarily. Patient denies history of fever. Patient has been vaccinated against Covid receiving his second dose in October. ED Past Medical Hx - Past Medical History Previous Medical History?: Yes Hx Asthma: Yes - Surgical History Past Surgical History?: No - Family History Family history: no significant - Social History Smoking Status: Never Smoker Substance Use Type: None (Denies illicit drug use), Alcohol (Occasional) - Medications Home Medications: Home Medications Medication Instructions Recorded Confirmed Last Taken Type Ibuprofen [Motrin 800 MG tab] 800 mg PO Q8HR PRN #30 tablet 08/23/19 Unknown Rx ALBUTEROL NEB's [Proventil 0.083% 5 mg IH TID PRN #75 ml 09/06/19 Unknown Rx NEBS] Montelukast [Singulair] 10 mg PO QPM #14 tablet 09/28/19 Unknown Rx ALBUTEROL NEB's [Proventil 0.083% 2.5 mg IH TID PRN #30 neb 10/12/19 Unknown Rx NEBS] Ibuprofen [Motrin 600 MG tab] 600 mg PO Q8H PRN #20 tablet 03/17/20 Unknown Rx Prednisone [predniSONE 10 mg 10 mg PO .TAPER #1 tab.ds.pk 03/17/20 Unknown Rx (6-Day Pack, 21 Tabs)] ALBUTEROL NEB's [Proventil 0.083% 2.5 mg IH TID PRN #1 box 04/04/20 Unknown Rx NEBS] Albuterol Mdi (or & Nicu Only) 2 puff IH QID PRN #1 inhalation 07/07/20 Unknown Rx [ProAir HFA Inhaler] Albuterol Mdi (or & Nicu Only) 2 puff IH QID PRN #1 inhalation 11/20/20 Unknown Rx [ProAir HFA Inhaler] Albuterol Sulfate [Albuterol 0.63% 0.63 mg IH TID PRN #1 box 11/20/20 Unknown Rx NEBS] Azithromycin [Zithromax Z-GLADIS] 250 mg PO DAILY #6 tab 11/20/20 Unknown Rx Benzonatate [Tessalon Perles] 100 mg PO Q8HR PRN #30 capsule 11/20/20 Unknown Rx Budesonide/Formoterol Fumarate 1 inhalation IH DAILY #1 hfa.aer.ad 11/20/20 Unknown Rx [Symbicort 160-4.5 Mcg Inhaler] Montelukast [Singulair] 10 mg PO QPM #14 tablet 11/20/20 Unknown Rx Prednisone [predniSONE 10 mg 10 mg PO .TAPER #1 tab.ds.pk 11/20/20 Unknown Rx (6-Day Pack, 21 Tabs)] ALBUTEROL NEB's [Proventil 0.083% 2.5 mg IH QID PRN #1 box 01/06/21 Unknown Rx NEBS] Albuterol Mdi (or & Nicu Only) 2 puff IH QID PRN #8.5 gram 01/06/21 Unknown Rx [ProAir HFA Inhaler] predniSONE [Deltasone] 20 mg PO BID #6 tab 01/06/21 Unknown Rx Albuterol Mdi (or & Nicu Only) 2 puff IH QID PRN #8.5 gram 01/31/21 Unknown Rx [ProAir HFA Inhaler] Albuterol Sulfate [Albuterol 0.63% 0.63 mg IH TID PRN #75 ml 01/31/21 Unknown Rx NEBS] Prednisone [predniSONE 10 mg 10 mg PO .TAPER #1 tab.ds.pk 01/31/21 Unknown Rx (6-Day Pack, 21 Tabs)] ED Review of Systems ROS: Stated complaint: SHORTNESS OF BREATH Other details as noted in HPI Constitutional: denies: fever Eyes: denies: eye pain ENT: denies: throat pain Respiratory: cough, shortness of breath, wheezing Cardiovascular: denies: chest pain Endocrine: no symptoms reported Gastrointestinal: denies: abdominal pain Genitourinary: denies: dysuria Musculoskeletal: denies: back pain Neurological: denies: headache Physical Exam - Physical Exam Vital Signs: Vital Signs 01/30/21 23:51 Temperature 97.9 F Pulse Rate 74 Respiratory 18 Rate Blood Pressure 115/74 O2 Sat by Pulse 98 Oximetry Physical Exam: GENERAL: The patient is well-developed well-nourished male sitting on stretcher not appearing to be in acute distress. [] HEENT: Normocephalic. Atraumatic. Extraocular motions are intact. Patient has moist mucous membranes. NECK: Supple. Trachea midline CHEST/LUNGS: Coarse breath sounds and expiratory wheezing diffusely. There is no respiratory distress noted. HEART/CARDIOVASCULAR: Regular. There is no tachycardia. There is no gallop rub or murmur. ABDOMEN: Abdomen is soft, nontender. Patient has normal bowel sounds. There is no abdominal distention. SKIN: There is no rash. There is no edema. There is no diaphoresis. NEURO: The patient is awake, alert, and oriented. The patient is cooperative. The patient has no focal neurologic deficits. The patient has normal speech. GCS 15 MUSCULOSKELETAL: There is no evidence of acute injury. ED Course Vital Signs 01/30/21 23:51 Temperature 97.9 F Pulse Rate 74 Respiratory 18 Rate Blood Pressure 115/74 O2 Sat by Pulse 98 Oximetry - Reevaluation(s) Reevaluation #1: 01/31/21 01:02 Patient states he feels much improved. Lungs clear to auscultation bilaterally ED Medical Decision Making - Differential Diagnosis Acute asthma exacerbation Critical care attestation.: If time is entered above; I have spent that time in minutes in the direct care of this critically ill patient, excluding procedure time. ED Disposition Clinical Impression: Acute asthma exacerbation, Shortness of breath Disposition: 01 HOME / SELF CARE / HOMELESS Is pt being admited?: No Does the pt Need Aspirin: No Condition: Stable Instructions: Asthma, Adult Additional Instructions: Return to the emergency department should you develop worsening symptoms, inability to tolerate food or liquids, high fever or any other concerns Prescriptions: Albuterol Sulfate [Albuterol 0.63% NEBS] 0.63 mg IH TID PRN #75 ml PRN Reason: Wheezing Prednisone [predniSONE 10 mg (6-Day Pack, 21 Tabs)] 10 mg PO .TAPER #1 tab.ds.pk Albuterol Mdi (or & Nicu Only) [ProAir HFA Inhaler] 2 puff IH QID PRN #8.5 gram PRN Reason: Shortness Of Breath Referrals: [facility] [Provider Group] - 3-5 Days Time of Disposition: 01:03
[2021-01-31 01:45] VITALS: BP 111/60
== END 2021-01-31 01:25 | disposition home or self-care (01) ==
LOC: ED 23:44
DX: J45.909 Unspecified asthma, uncomplicated (principal)
CPT/HCPCS: 94640; 99282; J7512; 94644

== ENCOUNTER 2021-05-01 19:20 | Emergency (ER) | payer SELFPAY ==
[2021-05-01 19:26] VITALS: BP 110/78
[2021-05-01] MEDS ORDERED: dexAMETHasone 20 MG/5 ML VIAL IM ONE (19:45)
[2021-05-01] MEDS ORDERED: IPRATROPIUM 0.02% NEBU 2.5 ML IH ONE (19:45)
[2021-05-01] MEDS ORDERED: ALBUTEROL 2.5 MG/3 ML NEBU IH ONE (19:45)
--- NOTE | 2021-05-01 20:29 | Emergency Department Report ---
ED Asthma HPI - General Chief Complaint: Dyspnea/Respdistress Stated Complaint: BASSAM Time Seen by Provider: 05/01/21 19:45 Source: EMS Mode of arrival: Stretcher Limitations: No Limitations - History of Present Illness Initial Comments: Patient is a 41-year-old male presents emergency with complaints of an asthma exacerbation that began this morning. Patient states he is out of his nebulizer solution, albuterol inhaler, and his Symbicort. He has associated shortness of breath, wheezing, chest tightness, dry cough. He denies any fever, nausea, vomi ting, diarrhea. He denies any sick contacts or recent travel. No allergies to medications. Patient states he was given a treatment by EMS with some improvement of his symptoms. - Related Data Previous Rx's Medication Instructions Recorded Last Taken Type Ibuprofen [Motrin 800 MG tab] 800 mg PO Q8HR PRN #30 tablet 08/23/19 Unknown Rx ALBUTEROL NEB's [Proventil 0.083% 5 mg IH TID PRN #75 ml 09/06/19 Unknown Rx NEBS] Montelukast [Singulair] 10 mg PO QPM #14 tablet 09/28/19 Unknown Rx ALBUTEROL NEB's [Proventil 0.083% 2.5 mg IH TID PRN #30 neb 10/12/19 Unknown Rx NEBS] Ibuprofen [Motrin 600 MG tab] 600 mg PO Q8H PRN #20 tablet 03/17/20 Unknown Rx Prednisone [predniSONE 10 mg 10 mg PO .TAPER #1 tab.ds.pk 03/17/20 Unknown Rx (6-Day Pack, 21 Tabs)] ALBUTEROL NEB's [Proventil 0.083% 2.5 mg IH TID PRN #1 box 04/04/20 Unknown Rx NEBS] Albuterol Mdi (or & Nicu Only) 2 puff IH QID PRN #1 inhalation 07/07/20 Unknown Rx [ProAir HFA Inhaler] Albuterol Mdi (or & Nicu Only) 2 puff IH QID PRN #1 inhalation 11/20/20 Unknown Rx [ProAir HFA Inhaler] Albuterol Sulfate [Albuterol 0.63% 0.63 mg IH TID PRN #1 box 11/20/20 Unknown Rx NEBS] Azithromycin [Zithromax Z-GLADIS] 250 mg PO DAILY #6 tab 11/20/20 Unknown Rx Benzonatate [Tessalon Perles] 100 mg PO Q8HR PRN #30 capsule 11/20/20 Unknown Rx Montelukast [Singulair] 10 mg PO QPM #14 tablet 11/20/20 Unknown Rx Prednisone [predniSONE 10 mg 10 mg PO .TAPER #1 tab.ds.pk 11/20/20 Unknown Rx (6-Day Pack, 21 Tabs)] Albuterol Mdi (or & Nicu Only) 2 puff IH QID PRN #8.5 gram 01/06/21 Unknown Rx [ProAir HFA Inhaler] Albuterol Sulfate [Albuterol 0.63% 0.63 mg IH TID PRN #75 ml 01/31/21 Unknown Rx NEBS] Prednisone [predniSONE 10 mg 10 mg PO .TAPER #1 tab.ds.pk 01/31/21 Unknown Rx (6-Day Pack, 21 Tabs)] ALBUTEROL NEB's [Proventil 0.083% 2.5 mg IH QID PRN #1 box 05/01/21 Unknown Rx NEBS] Albuterol Mdi (or & Nicu Only) 2 puff IH QID PRN #8.5 gram 05/01/21 Unknown Rx [ProAir HFA Inhaler] Budesonide/Formoterol Fumarate 1 inhalation IH DAILY #1 hfa.aer.ad 05/01/21 Unknown Rx [Symbicort 160-4.5 Mcg Inhaler] predniSONE [Deltasone] 40 mg PO QDAY 5 Days #10 tab 05/01/21 Unknown Rx Allergies Allergy/AdvReac Type Severity Reaction Status Date / Time No Known Allergies Allergy Verified 01/06/21 00:46 ED Review of Systems ROS: Stated complaint: BASSAM Other details as noted in HPI Comment: All other systems reviewed and negative ED Past Medical Hx - Past Medical History Previous Medical History?: No Hx Asthma: Yes - Surgical History Past Surgical History?: No - Social History Smoking Status: Never Smoker Substance Use Type: None (Denies illicit drug use), Alcohol (Occasional) - Medications Home Medications: Home Medications Medication Instructions Recorded Confirmed Last Taken Type Ibuprofen [Motrin 800 MG tab] 800 mg PO Q8HR PRN #30 tablet 08/23/19 Unknown Rx ALBUTEROL NEB's [Proventil 0.083% 5 mg IH TID PRN #75 ml 09/06/19 Unknown Rx NEBS] Montelukast [Singulair] 10 mg PO QPM #14 tablet 09/28/19 Unknown Rx ALBUTEROL NEB's [Proventil 0.083% 2.5 mg IH TID PRN #30 neb 10/12/19 Unknown Rx NEBS] Ibuprofen [Motrin 600 MG tab] 600 mg PO Q8H PRN #20 tablet 03/17/20 Unknown Rx Prednisone [predniSONE 10 mg 10 mg PO .TAPER #1 tab.ds.pk 03/17/20 Unknown Rx (6-Day Pack, 21 Tabs)] ALBUTEROL NEB's [Proventil 0.083% 2.5 mg IH TID PRN #1 box 04/04/20 Unknown Rx NEBS] Albuterol Mdi (or & Nicu Only) 2 puff IH QID PRN #1 inhalation 07/07/20 Unknown Rx [ProAir HFA Inhaler] Albuterol Mdi (or & Nicu Only) 2 puff IH QID PRN #1 inhalation 11/20/20 Unknown Rx [ProAir HFA Inhaler] Albuterol Sulfate [Albuterol 0.63% 0.63 mg IH TID PRN #1 box 11/20/20 Unknown Rx NEBS] Azithromycin [Zithromax Z-GLADIS] 250 mg PO DAILY #6 tab 11/20/20 Unknown Rx Benzonatate [Tessalon Perles] 100 mg PO Q8HR PRN #30 capsule 11/20/20 Unknown Rx Montelukast [Singulair] 10 mg PO QPM #14 tablet 11/20/20 Unknown Rx Prednisone [predniSONE 10 mg 10 mg PO .TAPER #1 tab.ds.pk 11/20/20 Unknown Rx (6-Day Pack, 21 Tabs)] Albuterol Mdi (or & Nicu Only) 2 puff IH QID PRN #8.5 gram 01/06/21 Unknown Rx [ProAir HFA Inhaler] Albuterol Sulfate [Albuterol 0.63% 0.63 mg IH TID PRN #75 ml 01/31/21 Unknown Rx NEBS] Prednisone [predniSONE 10 mg 10 mg PO .TAPER #1 tab.ds.pk 01/31/21 Unknown Rx (6-Day Pack, 21 Tabs)] ALBUTEROL NEB's [Proventil 0.083% 2.5 mg IH QID PRN #1 box 05/01/21 Unknown Rx NEBS] Albuterol Mdi (or & Nicu Only) 2 puff IH QID PRN #8.5 gram 05/01/21 Unknown Rx [ProAir HFA Inhaler] Budesonide/Formoterol Fumarate 1 inhalation IH DAILY #1 hfa.aer.ad 05/01/21 Unknown Rx [Symbicort 160-4.5 Mcg Inhaler] predniSONE [Deltasone] 40 mg PO QDAY 5 Days #10 tab 05/01/21 Unknown Rx ED Physical Exam - General Limitations: No Limitations General appearance: alert, in no apparent distress - Head Head exam: Present: atraumatic, normocephalic - Eye Eye exam: Present: normal appearance - ENT ENT exam: Present: mucous membranes moist - Respiratory Respiratory exam: Present: wheezes (expiratory bilaterally), decreased breath sounds, prolonged expiratory. Absent: respiratory distress, rales, rhonchi, stridor, chest wall tenderness, accessory muscle use - Cardiovascular Cardiovascular Exam: Present: regular rate, normal rhythm, normal heart sounds. Absent: systolic murmur, diastolic murmur, rubs, gallop - Neurological Exam Neurological exam: Present: alert, oriented X3 - Psychiatric Psychiatric exam: Present: normal affect, normal mood - Skin Skin exam: Present: warm, dry, intact ED Course Vital Signs 05/01/21 19:20 Pulse Rate 91 H Respiratory 18 Rate Blood Pressure 110/78 [Right] O2 Sat by Pulse 99 Oximetry ED Medical Decision Making - Medical Decision Making Patient is a 41-year-old male presents emergency with complaints of an asthma exacerbation that began this morning. Patient states he is out of his nebulizer solution, albuterol inhaler, and his Symbicort. He has associated shortness of breath, wheezing, chest tightness, dry cough. He denies any fever, nausea, vomiting, diarrhea. He denies any sick contacts or recent travel. No allergies to medications. Patient states he was given a treatment by EMS with some improvement of his symptoms. Vitals are normal, no fever, no hypoxia, no tachycardia on exam patient has expiratory wheezing bilaterally. Patient given nebulizer treatment and IM steroids and on reexamination wheezing has improved. Patient given refill of his home medications. Patient has no clinical signs of bacterial pneumonia or bacterial bronchitis. Advised patient please use medication as prescribed. Please either use your inhaler or your nebulizer machine every 4 hours as needed for wheezing or shortness of breath until symptoms improve. Follow-up with your primary care doctor. Return to emergency room for any new or worsening symptoms. Critical care attestation.: If time is entered above; I have spent that time in minutes in the direct care of this critically ill patient, excluding procedure time. ED Disposition Clinical Impression: Asthma exacerbation Qualifiers: Asthma severity: unspecified severity Asthma persistence: unspecified Qualified Code(s): J45.901 - Unspecified asthma with (acute) exacerbation Disposition: HOME / SELF CARE / HOMELESS Is pt being admited?: No Does the pt Need Aspirin: No Condition: Stable Instructions: Asthma, Adult Additional Instructions: please use medication as prescribed. Please either use your inhaler or your nebulizer machine every 4 hours as needed for wheezing or shortness of breath until symptoms improve. Follow-up with your primary care doctor. Return to emergency room for any new or worsening symptoms. Prescriptions: predniSONE [Deltasone] 40 mg PO QDAY 5 Days #10 tab Albuterol Mdi (or & Nicu Only) [ProAir HFA Inhaler] 2 puff IH QID PRN #8.5 gram PRN Reason: Shortness Of Breath ALBUTEROL NEB's [Proventil 0.083% NEBS] 2.5 mg IH QID PRN #1 box PRN Reason: Wheezing Budesonide/Formoterol Fumarate [Symbicort 160-4.5 Mcg Inhaler] 1 inhalation IH DAILY #1 hfa.aer.ad Referrals: FILIBERTO BAIN MD [Staff Physician] - 3-5 Days [facility] [Provider Group] - 3-5 Days Time of Disposition: 20:48 Print Language: JAPANESE
== END 2021-05-01 21:17 | disposition home or self-care (01) ==
LOC: ED 19:20
DX: J45.901 Unspecified asthma with (acute) exacerbation (principal); F17.200 Nicotine dependence, unspecified, uncomplicated
CPT/HCPCS: 94640; 96372; 99283; J1100

== ENCOUNTER 2021-05-10 00:05 | Emergency (ER) | payer SELFPAY ==
[2021-05-10] MEDS ORDERED: IPRATROPIUM 0.02% NEBU 2.5 ML IH ONE (00:22)
[2021-05-10] MEDS ORDERED: ALBUTEROL 2.5 MG/3 ML NEBU IH ONE (00:22)
--- NOTE | 2021-05-10 00:26 | Emergency Department Report ---
ED Asthma HPI - General Chief Complaint: Adult Asthma Stated Complaint: ASTHMA PUI?: No Time Seen by Provider: 05/10/21 00:21 Source: patient, EMS, old records reviewed Mode of arrival: Stretcher Limitations: No Limitations - History of Present Illness Initial Comments: Chief complaint: Asthma attack HPI: This is a 41-year-old male with history of severe persistent asthma intubation x2 who presents with shortness of breath and wheezing. Gradual onset today. Four albuterol treatments at home did not improve his symptoms. Patient received IV dexamethasone 10 mg and albuterol 2.5 mg nebulizer treatment per EMS. Patient denies fever, sputum production, chest pain. He does not have a primary care physician. He ran out of Symbicort medication. MD Complaint: "asthma attack", wheezing -: Gradual, This afternoon Asthma History: childhood onset, history of frequent attac, previously intubated Severity: moderate Context: ran out of meds Treatments Prior to Arrival: inhaled bronchodilator, IV steroid, other (EMS transport EMS treatment) - Related Data Previous Rx's Medication Instructions Recorded Last Taken Type Ibuprofen [Motrin 800 MG tab] 800 mg PO Q8HR PRN #30 tablet 08/23/19 Unknown Rx ALBUTEROL NEB's [Proventil 0.083% 5 mg IH TID PRN #75 ml 09/06/19 Unknown Rx NEBS] Montelukast [Singulair] 10 mg PO QPM #14 tablet 09/28/19 Unknown Rx ALBUTEROL NEB's [Proventil 0.083% 2.5 mg IH TID PRN #30 neb 10/12/19 Unknown Rx NEBS] Ibuprofen [Motrin 600 MG tab] 600 mg PO Q8H PRN #20 tablet 03/17/20 Unknown Rx Prednisone [predniSONE 10 mg 10 mg PO .TAPER #1 tab.ds.pk 03/17/20 Unknown Rx (6-Day Pack, 21 Tabs)] ALBUTEROL NEB's [Proventil 0.083% 2.5 mg IH TID PRN #1 box 04/04/20 Unknown Rx NEBS] Albuterol Mdi (or & Nicu Only) 2 puff IH QID PRN #1 inhalation 07/07/20 Unknown Rx [ProAir HFA Inhaler] Albuterol Mdi (or & Nicu Only) 2 puff IH QID PRN #1 inhalation 11/20/20 Unknown Rx [ProAir HFA Inhaler] Albuterol Sulfate [Albuterol 0.63% 0.63 mg IH TID PRN #1 box 11/20/20 Unknown Rx NEBS] Azithromycin [Zithromax Z-GLADIS] 250 mg PO DAILY #6 tab 11/20/20 Unknown Rx Benzonatate [Tessalon Perles] 100 mg PO Q8HR PRN #30 capsule 11/20/20 Unknown Rx Montelukast [Singulair] 10 mg PO QPM #14 tablet 11/20/20 Unknown Rx Prednisone [predniSONE 10 mg 10 mg PO .TAPER #1 tab.ds.pk 11/20/20 Unknown Rx (6-Day Pack, 21 Tabs)] Albuterol Mdi (or & Nicu Only) 2 puff IH QID PRN #8.5 gram 01/06/21 Unknown Rx [ProAir HFA Inhaler] Albuterol Sulfate [Albuterol 0.63% 0.63 mg IH TID PRN #75 ml 01/31/21 Unknown Rx NEBS] Prednisone [predniSONE 10 mg 10 mg PO .TAPER #1 tab.ds.pk 01/31/21 Unknown Rx (6-Day Pack, 21 Tabs)] ALBUTEROL NEB's [Proventil 0.083% 2.5 mg IH QID PRN #1 box 05/01/21 Unknown Rx NEBS] Albuterol Mdi (or & Nicu Only) 2 puff IH QID PRN #8.5 gram 05/01/21 Unknown Rx [ProAir HFA Inhaler] Budesonide/Formoterol Fumarate 1 inhalation IH DAILY #1 hfa.aer.ad 05/01/21 Unknown Rx [Symbicort 160-4.5 Mcg Inhaler] predniSONE [Deltasone] 40 mg PO QDAY 5 Days #10 tab 05/01/21 Unknown Rx ALBUTEROL NEB's [Proventil 0.083% 2.5 mg IH TID PRN #1 box 05/10/21 Unknown Rx NEBS] Albuterol Mdi (or & Nicu Only) 2 puff IH QID PRN #1 device 05/10/21 Unknown Rx [ProAir HFA Inhaler] Budesonide/Formoterol Fumarate 2 puff IH BID #1 device 05/10/21 Unknown Rx [Symbicort 160-4.5 Mcg Inhaler] Loratadine 10 mg PO DAILY #30 cap 05/10/21 Unknown Rx Montelukast [Singulair] 10 mg PO QPM #30 tablet 05/10/21 Unknown Rx Prednisone [predniSONE 10 mg 10 mg PO .TAPER #1 05/10/21 Unknown Rx (6-Day Pack, 21 Tabs)] Allergies Allergy/AdvReac Type Severity Reaction Status Date / Time No Known Allergies Allergy Verified 01/06/21 00:46 ED Review of Systems ROS: Stated complaint: ASTHMA Other details as noted in HPI Comment: All other systems reviewed and negative Constitutional: denies: chills, fever, malaise Respiratory: shortness of breath, wheezing. denies: cough Cardiovascular: denies: chest pain Gastrointestinal: denies: abdominal pain, nausea, vomiting ED Past Medical Hx - Past Medical History Previous Medical History?: Yes Hx Asthma: Yes - Surgical History Past Surgical History?: No - Family History Family history: other (Asthma) - Social History Smoking Status: Never Smoker Substance Use Type: None (Denies illicit drug use) - Medications Home Medications: Home Medications Medication Instructions Recorded Confirmed Last Taken Type Ibuprofen [Motrin 800 MG tab] 800 mg PO Q8HR PRN #30 tablet 08/23/19 Unknown Rx ALBUTEROL NEB's [Proventil 0.083% 5 mg IH TID PRN #75 ml 09/06/19 Unknown Rx NEBS] Montelukast [Singulair] 10 mg PO QPM #14 tablet 09/28/19 Unknown Rx ALBUTEROL NEB's [Proventil 0.083% 2.5 mg IH TID PRN #30 neb 10/12/19 Unknown Rx NEBS] Ibuprofen [Motrin 600 MG tab] 600 mg PO Q8H PRN #20 tablet 03/17/20 Unknown Rx Prednisone [predniSONE 10 mg 10 mg PO .TAPER #1 tab.ds.pk 03/17/20 Unknown Rx (6-Day Pack, 21 Tabs)] ALBUTEROL NEB's [Proventil 0.083% 2.5 mg IH TID PRN #1 box 04/04/20 Unknown Rx NEBS] Albuterol Mdi (or & Nicu Only) 2 puff IH QID PRN #1 inhalation 07/07/20 Unknown Rx [ProAir HFA Inhaler] Albuterol Mdi (or & Nicu Only) 2 puff IH QID PRN #1 inhalation 11/20/20 Unknown Rx [ProAir HFA Inhaler] Albuterol Sulfate [Albuterol 0.63% 0.63 mg IH TID PRN #1 box 11/20/20 Unknown Rx NEBS] Azithromycin [Zithromax Z-GLADIS] 250 mg PO DAILY #6 tab 11/20/20 Unknown Rx Benzonatate [Tessalon Perles] 100 mg PO Q8HR PRN #30 capsule 11/20/20 Unknown Rx Montelukast [Singulair] 10 mg PO QPM #14 tablet 11/20/20 Unknown Rx Prednisone [predniSONE 10 mg 10 mg PO .TAPER #1 tab.ds.pk 11/20/20 Unknown Rx (6-Day Pack, 21 Tabs)] Albuterol Mdi (or & Nicu Only) 2 puff IH QID PRN #8.5 gram 01/06/21 Unknown Rx [ProAir HFA Inhaler] Albuterol Sulfate [Albuterol 0.63% 0.63 mg IH TID PRN #75 ml 01/31/21 Unknown Rx NEBS] Prednisone [predniSONE 10 mg 10 mg PO .TAPER #1 tab.ds.pk 01/31/21 Unknown Rx (6-Day Pack, 21 Tabs)] ALBUTEROL NEB's [Proventil 0.083% 2.5 mg IH QID PRN #1 box 05/01/21 Unknown Rx NEBS] Albuterol Mdi (or & Nicu Only) 2 puff IH QID PRN #8.5 gram 05/01/21 Unknown Rx [ProAir HFA Inhaler] Budesonide/Formoterol Fumarate 1 inhalation IH DAILY #1 hfa.aer.ad 05/01/21 Unknown Rx [Symbicort 160-4.5 Mcg Inhaler] predniSONE [Deltasone] 40 mg PO QDAY 5 Days #10 tab 05/01/21 Unknown Rx ALBUTEROL NEB's [Proventil 0.083% 2.5 mg IH TID PRN #1 box 05/10/21 Unknown Rx NEBS] Albuterol Mdi (or & Nicu Only) 2 puff IH QID PRN #1 device 05/10/21 Unknown Rx [ProAir HFA Inhaler] Budesonide/Formoterol Fumarate 2 puff IH BID #1 device 05/10/21 Unknown Rx [Symbicort 160-4.5 Mcg Inhaler] Loratadine 10 mg PO DAILY #30 cap 05/10/21 Unknown Rx Montelukast [Singulair] 10 mg PO QPM #30 tablet 05/10/21 Unknown Rx Prednisone [predniSONE 10 mg 10 mg PO .TAPER #1 05/10/21 Unknown Rx (6-Day Pack, 21 Tabs)] ED Physical Exam - General Limitations: No Limitations General appearance: alert, other (Speaking for sentences minimal work of breathing) - Head Head exam: Present: atraumatic, normocephalic - Eye Eye exam: Present: normal appearance - ENT ENT exam: Present: mucous membranes moist - Neck Neck exam: Present: normal inspection, full ROM - Respiratory Respiratory exam: Present: respiratory distress, wheezes, prolonged expiratory, other (Expiratory wheezing). Absent: rales, rhonchi - Cardiovascular Cardiovascular Exam: Present: regular rate, normal rhythm, normal heart sounds. Absent: systolic murmur, diastolic murmur, rubs, gallop - GI/Abdominal GI/Abdominal exam: Present: soft, normal bowel sounds. Absent: distended, tenderness, guarding, rebound - Rectal Rectal exam: Present: deferred - Extremities Exam Extremities exam: Present: normal inspection - Back Exam Back exam: Present: normal inspection - Neurological Exam Neurological exam: Present: alert, oriented X3 - Psychiatric Psychiatric exam: Present: normal affect, normal mood - Skin Skin exam: Present: warm, dry, intact, normal color. Absent: rash ED Course Vital Signs 05/10/21 05/10/21 05/10/21 00:19 01:30 02:17 Temperature 98.7 F Pulse Rate 93 H Pulse Rate [ 95 H Right] Respiratory 20 Rate Respiratory 16 Rate [Right] Blood Pressure 116/72 [Left] O2 Sat by Pulse 96 93 Oximetry 05/10/21 05/10/21 02:26 03:04 Temperature Pulse Rate 95 H 107 H Pulse Rate [ Right] Respiratory 14 14 Rate Respiratory Rate [Right] Blood Pressure 120/86 106/76 [Left] O2 Sat by Pulse 98 98 Oximetry ED Medical Decision Making - Medical Decision Making Acute asthma exacerbation: Patient received albuterol nebulizer therapy, IV dexamethasone. In the emergency department patient received, continuous nebulizer therapy albuterol 10 mg, Atrovent 1 mg. Patient subjectively felt much improved. He appeared well upon discharge. Speaking full word sentences. I have prescribed Singulair, loratadine, prednisone taper, albuterol MDI, albuterol nebulizer solution, Symbicort. I have referred him to our internal medicine physician. Critical care attestation.: If time is entered above; I have spent that time in minutes in the direct care of this critically ill patient, excluding procedure time. ED Disposition Clinical Impression: Asthma exacerbation Disposition: HOME / SELF CARE / HOMELESS Is pt being admited?: No Does the pt Need Aspirin: No Condition: Stable Prescriptions: Loratadine 10 mg PO DAILY #30 cap Prednisone [predniSONE 10 mg (6-Day Pack, 21 Tabs)] 10 mg PO .TAPER #1 Albuterol Mdi (or & Nicu Only) [ProAir HFA Inhaler] 2 puff IH QID PRN #1 device PRN Reason: Shortness Of Breath ALBUTEROL NEB's [Proventil 0.083% NEBS] 2.5 mg IH TID PRN #1 box PRN Reason: Wheezing Montelukast [Singulair] 10 mg PO QPM #30 tablet Budesonide/Formoterol Fumarate [Symbicort 160-4.5 Mcg Inhaler] 2 puff IH BID #1 device Referrals: FILIBERTO BAIN MD [Staff Physician] - 3-5 Days Forms: Work/School Release Form(ED)
[2021-05-10 03:04] VITALS: BP 106/76
== END 2021-05-10 04:22 | disposition home or self-care (01) ==
LOC: ED 00:05
DX: J45.901 Unspecified asthma with (acute) exacerbation (principal); Z79.899 Other long term (current) drug therapy
CPT/HCPCS: 94640; 94644; 99283

== ENCOUNTER 2021-06-08 19:34 | Emergency (ER) | payer SELFPAY ==
[2021-06-08] MEDS ORDERED: IPRATROPIUM 0.02% NEBU 2.5 ML IH ONE (20:13)
[2021-06-08] MEDS ORDERED: SODIUM CHLORIDE 0.9% 1000 ML 1,000 ML IV ONE (20:13)
[2021-06-08] MEDS ORDERED: ALBUTEROL 2.5 MG/3 ML NEBU IH ONE ×2 (20:13→23:37)
[2021-06-08] MEDS ORDERED: methylPREDNISolone Sod Succinate 125 MG/2 ML INJ IV ONE (20:13)
[2021-06-08 20:49] LABS: Basophils # (Auto) 0.1 K/mm3 (0.0-0.1); Basophils % (Auto) 1.3 % (0.0-1.8); Eosinophils # (Auto) 0.8 K/mm3 (0.0-0.4); Eosinophils % (Auto) 10.6 % (0.0-4.3); Hematocrit 43.5 % (35.5-45.6); Hemoglobin 15.1 gm/dl (11.8-15.2); Lymphocytes # (Auto) 0.9 K/mm3 (1.2-5.4); Lymphocytes % (Auto) 11.3 % (13.4-35.0); Mean Corpuscular HGB Conc 35 % (32-34); Mean Corpuscular Volume 95 fl (84-94); Monocytes # (Auto) 0.2 K/mm3 (0.0-0.8); Monocytes % (Auto) 3.1 % (0.0-7.3); Platelet Count 208 K/mm3 (140-440); Red Blood Count 4.57 M/mm3 (3.65-5.03)
--- NOTE | 2021-06-08 21:01 | XRay Report ---
CHEST 1 VIEW INDICATION / CLINICAL INFORMATION: Dyspnea. FINDINGS: SUPPORT DEVICES: None. HEART / MEDIASTINUM: No significant abnormality. LUNGS / PLEURA: No significant pulmonary or pleural abnormality. No pneumothorax. ADDITIONAL FINDINGS: No significant additional findings. IMPRESSION: 1. No acute findings. Signer Name: Dany Cannon MD Signed: 06/08/2021 8:57 PM Workstation Name: [id number]
[2021-06-08 21:14] LABS: Creatine Kinase MB 2.4 ng/mL (0.0-4.0)
[2021-06-08 21:16] LABS: Alanine Aminotransferase 15 units/L (7-56); Albumin 4.3 g/dL (3.9-5); BUN/Creatinine Ratio 6; Blood Urea Nitrogen 9 mg/dL (9-20); Calcium 9.6 mg/dL (8.4-10.2); Hemolysis Index 14
--- NOTE | 2021-06-08 22:35 | Emergency Department Report ---
ED Shortness of Breath HPI - General Chief Complaint: Dyspnea/Respdistress Stated Complaint: BASSAM Time Seen by Provider: 06/08/21 20:13 Source: EMS Mode of arrival: Stretcher Limitations: No Limitations - History of Present Illness MD Complaint: shortness of breath -: Gradual Improves With: nothing Worsens With: nothing Known History Of: asthma Associated Symptoms: fever, cough Treatments Prior to Arrival: none - Related Data Previous Rx's Medication Instructions Recorded Last Taken Type Ibuprofen [Motrin 800 MG tab] 800 mg PO Q8HR PRN #30 tablet 08/23/19 Unknown Rx ALBUTEROL NEB's [Proventil 0.083% 5 mg IH TID PRN #75 ml 09/06/19 Unknown Rx NEBS] Montelukast [Singulair] 10 mg PO QPM #14 tablet 09/28/19 Unknown Rx ALBUTEROL NEB's [Proventil 0.083% 2.5 mg IH TID PRN #30 neb 10/12/19 Unknown Rx NEBS] Ibuprofen [Motrin 600 MG tab] 600 mg PO Q8H PRN #20 tablet 03/17/20 Unknown Rx Prednisone [predniSONE 10 mg 10 mg PO .TAPER #1 tab.ds.pk 03/17/20 Unknown Rx (6-Day Pack, 21 Tabs)] ALBUTEROL NEB's [Proventil 0.083% 2.5 mg IH TID PRN #1 box 04/04/20 Unknown Rx NEBS] Albuterol Mdi (or & Nicu Only) 2 puff IH QID PRN #1 inhalation 07/07/20 Unknown Rx [ProAir HFA Inhaler] Albuterol Mdi (or & Nicu Only) 2 puff IH QID PRN #1 inhalation 11/20/20 Unknown Rx [ProAir HFA Inhaler] Albuterol Sulfate [Albuterol 0.63% 0.63 mg IH TID PRN #1 box 11/20/20 Unknown Rx NEBS] Azithromycin [Zithromax Z-GLADIS] 250 mg PO DAILY #6 tab 11/20/20 Unknown Rx Benzonatate [Tessalon Perles] 100 mg PO Q8HR PRN #30 capsule 11/20/20 Unknown Rx Montelukast [Singulair] 10 mg PO QPM #14 tablet 11/20/20 Unknown Rx Prednisone [predniSONE 10 mg 10 mg PO .TAPER #1 tab.ds.pk 11/20/20 Unknown Rx (6-Day Pack, 21 Tabs)] Albuterol Mdi (or & Nicu Only) 2 puff IH QID PRN #8.5 gram 01/06/21 Unknown Rx [ProAir HFA Inhaler] Albuterol Sulfate [Albuterol 0.63% 0.63 mg IH TID PRN #75 ml 01/31/21 Unknown Rx NEBS] Prednisone [predniSONE 10 mg 10 mg PO .TAPER #1 tab.ds.pk 01/31/21 Unknown Rx (6-Day Pack, 21 Tabs)] ALBUTEROL NEB's [Proventil 0.083% 2.5 mg IH QID PRN #1 box 05/01/21 Unknown Rx NEBS] Albuterol Mdi (or & Nicu Only) 2 puff IH QID PRN #8.5 gram 05/01/21 Unknown Rx [ProAir HFA Inhaler] Budesonide/Formoterol Fumarate 1 inhalation IH DAILY #1 hfa.aer.ad 05/01/21 Unknown Rx [Symbicort 160-4.5 Mcg Inhaler] predniSONE [Deltasone] 40 mg PO QDAY 5 Days #10 tab 05/01/21 Unknown Rx ALBUTEROL NEB's [Proventil 0.083% 2.5 mg IH TID PRN #1 box 05/10/21 Unknown Rx NEBS] Albuterol Mdi (or & Nicu Only) 2 puff IH QID PRN #1 device 05/10/21 Unknown Rx [ProAir HFA Inhaler] Budesonide/Formoterol Fumarate 2 puff IH BID #1 device 05/10/21 Unknown Rx [Symbicort 160-4.5 Mcg Inhaler] Loratadine 10 mg PO DAILY #30 cap 05/10/21 Unknown Rx Montelukast [Singulair] 10 mg PO QPM #30 tablet 05/10/21 Unknown Rx Prednisone [predniSONE 10 mg 10 mg PO .TAPER #1 05/10/21 Unknown Rx (6-Day Pack, 21 Tabs)] Allergies Allergy/AdvReac Type Severity Reaction Status Date / Time No Known Allergies Allergy Verified 01/06/21 00:46 ED Review of Systems ROS: Stated complaint: BASSAM Other details as noted in HPI Constitutional: denies: chills, fever Eyes: denies: eye pain, eye discharge, vision change ENT: denies: ear pain, throat pain Respiratory: denies: cough, shortness of breath, wheezing Cardiovascular: denies: chest pain, palpitations Endocrine: no symptoms reported Gastrointestinal: denies: abdominal pain, nausea, diarrhea Genitourinary: denies: urgency, dysuria Musculoskeletal: denies: back pain, joint swelling, arthralgia Skin: denies: rash, lesions Neurological: denies: headache, weakness, paresthesias Psychiatric: denies: anxiety, depression Hematological/Lymphatic: denies: easy bleeding, easy bruising ED Past Medical Hx - Past Medical History Previous Medical History?: Yes Hx Asthma: Yes - Social History Smoking Status: Never Smoker Substance Use Type: None - Medications Home Medications: Home Medications Medication Instructions Recorded Confirmed Last Taken Type Ibuprofen [Motrin 800 MG tab] 800 mg PO Q8HR PRN #30 tablet 08/23/19 Unknown Rx ALBUTEROL NEB's [Proventil 0.083% 5 mg IH TID PRN #75 ml 09/06/19 Unknown Rx NEBS] Montelukast [Singulair] 10 mg PO QPM #14 tablet 09/28/19 Unknown Rx ALBUTEROL NEB's [Proventil 0.083% 2.5 mg IH TID PRN #30 neb 10/12/19 Unknown Rx NEBS] Ibuprofen [Motrin 600 MG tab] 600 mg PO Q8H PRN #20 tablet 03/17/20 Unknown Rx Prednisone [predniSONE 10 mg 10 mg PO .TAPER #1 tab.ds.pk 03/17/20 Unknown Rx (6-Day Pack, 21 Tabs)] ALBUTEROL NEB's [Proventil 0.083% 2.5 mg IH TID PRN #1 box 04/04/20 Unknown Rx NEBS] Albuterol Mdi (or & Nicu Only) 2 puff IH QID PRN #1 inhalation 07/07/20 Unknown Rx [ProAir HFA Inhaler] Albuterol Mdi (or & Nicu Only) 2 puff IH QID PRN #1 inhalation 11/20/20 Unknown Rx [ProAir HFA Inhaler] Albuterol Sulfate [Albuterol 0.63% 0.63 mg IH TID PRN #1 box 11/20/20 Unknown Rx NEBS] Azithromycin [Zithromax Z-GLADIS] 250 mg PO DAILY #6 tab 11/20/20 Unknown Rx Benzonatate [Tessalon Perles] 100 mg PO Q8HR PRN #30 capsule 11/20/20 Unknown Rx Montelukast [Singulair] 10 mg PO QPM #14 tablet 11/20/20 Unknown Rx Prednisone [predniSONE 10 mg 10 mg PO .TAPER #1 tab.ds.pk 11/20/20 Unknown Rx (6-Day Pack, 21 Tabs)] Albuterol Mdi (or & Nicu Only) 2 puff IH QID PRN #8.5 gram 01/06/21 Unknown Rx [ProAir HFA Inhaler] Albuterol Sulfate [Albuterol 0.63% 0.63 mg IH TID PRN #75 ml 01/31/21 Unknown Rx NEBS] Prednisone [predniSONE 10 mg 10 mg PO .TAPER #1 tab.ds.pk 01/31/21 Unknown Rx (6-Day Pack, 21 Tabs)] ALBUTEROL NEB's [Proventil 0.083% 2.5 mg IH QID PRN #1 box 05/01/21 Unknown Rx NEBS] Albuterol Mdi (or & Nicu Only) 2 puff IH QID PRN #8.5 gram 05/01/21 Unknown Rx [ProAir HFA Inhaler] Budesonide/Formoterol Fumarate 1 inhalation IH DAILY #1 hfa.aer.ad 05/01/21 Unknown Rx [Symbicort 160-4.5 Mcg Inhaler] predniSONE [Deltasone] 40 mg PO QDAY 5 Days #10 tab 05/01/21 Unknown Rx ALBUTEROL NEB's [Proventil 0.083% 2.5 mg IH TID PRN #1 box 05/10/21 Unknown Rx NEBS] Albuterol Mdi (or & Nicu Only) 2 puff IH QID PRN #1 device 05/10/21 Unknown Rx [ProAir HFA Inhaler] Budesonide/Formoterol Fumarate 2 puff IH BID #1 device 05/10/21 Unknown Rx [Symbicort 160-4.5 Mcg Inhaler] Loratadine 10 mg PO DAILY #30 cap 05/10/21 Unknown Rx Montelukast [Singulair] 10 mg PO QPM #30 tablet 05/10/21 Unknown Rx Prednisone [predniSONE 10 mg 10 mg PO .TAPER #1 05/10/21 Unknown Rx (6-Day Pack, 21 Tabs)] ED Physical Exam - General Limitations: No Limitations General appearance: alert, in no apparent distress - Head Head exam: Present: atraumatic, normocephalic - Eye Eye exam: Present: normal appearance - ENT ENT exam: Present: mucous membranes moist - Neck Neck exam: Present: normal inspection - Respiratory Respiratory exam: Present: normal lung sounds bilaterally, wheezes. Absent: respiratory distress - Cardiovascular Cardiovascular Exam: Present: regular rate, normal rhythm. Absent: systolic murmur, diastolic murmur, rubs, gallop - GI/Abdominal GI/Abdominal exam: Present: soft, normal bowel sounds - Rectal Rectal exam: Present: deferred - Extremities Exam Extremities exam: Present: normal inspection - Back Exam Back exam: Present: normal inspection - Neurological Exam Neurological exam: Present: alert, oriented X3 - Psychiatric Psychiatric exam: Present: normal affect, normal mood - Skin Skin exam: Present: warm, dry, intact, normal color. Absent: rash ED Course Vital Signs 06/08/21 06/08/21 06/08/21 19:40 20:00 20:01 Temperature 97.8 F Pulse Rate 115 H Respiratory 20 19 Rate Blood Pressure 160/92 [Left] O2 Sat by Pulse 96 99 Oximetry ED Medical Decision Making - Lab Data Result diagrams: 06/08/21 20:24 06/08/21 20:24 Critical care attestation.: If time is entered above; I have spent that time in minutes in the direct care of this critically ill patient, excluding procedure time. ED Disposition Clinical Impression: SOB (shortness of breath), Asthma exacerbation Disposition: 01 HOME / SELF CARE / HOMELESS Is pt being admited?: No Does the pt Need Aspirin: No Condition: Stable Referrals: FILIBERTO BAIN MD [Primary Care Provider] - 3-5 Days
[2021-06-09 04:55] VITALS: BP 130/70
== END 2021-06-08 22:45 | disposition home or self-care (01) ==
LOC: ED 19:34
DX: J45.901 Unspecified asthma with (acute) exacerbation (principal); Z79.899 Other long term (current) drug therapy
CPT/HCPCS: 36415; 71045; 80053; 82550; 82553; 84484; 85025; 94640; 96361; 96374; 99284; J2930; J7030; Q0162

== ENCOUNTER 2021-07-03 10:08 | Emergency (ER) | payer SELFPAY ==
[2021-07-03] MEDS ORDERED: IPRATROPIUM/ALBUTEROL SULFATE 3 ML AMPUL.NEB IH ONE ×2 (12:17→12:52)
[2021-07-03] MEDS ORDERED: methylPREDNISolone Sod Succinate 125 MG/2 ML INJ IM ONE (12:18)
--- NOTE | 2021-07-03 13:42 | Emergency Department Report ---
ED Shortness of Breath HPI - General Chief Complaint: Dyspnea/Respdistress Stated Complaint: SOB Time Seen by Provider: 07/03/21 11:14 Source: patient Mode of arrival: Ambulatory Limitations: No Limitations - History of Present Illness Initial Comments: 41-year-old black male with a past medical history of asthma presents to the emergency department for evaluation of shortness of breath that started last night. He states that he has shortness of breath and wheezing last night, used his albuterol nebulizer, but did not have any improvement. He denies fever, chest pain, nausea, vomiting, dizziness, and diaphoresis. He states that he has also had persistent cough and has ran out of his Singulair that he usually takes daily. MD Complaint: shortness of breath, cough, "asthma attack" -: Sudden, days(s) (1) Pain Scale: 0 Worsens With: exertion Known History Of: asthma Associated Symptoms: cough Treatments Prior to Arrival: bronchodilator - Related Data Home Oxygen Therapy: No Previous Rx's Medication Instructions Recorded Last Taken Type Ibuprofen [Motrin 800 MG tab] 800 mg PO Q8HR PRN #30 tablet 08/23/19 Unknown Rx ALBUTEROL NEB's [Proventil 0.083% 5 mg IH TID PRN #75 ml 09/06/19 Unknown Rx NEBS] Montelukast [Singulair] 10 mg PO QPM #14 tablet 09/28/19 Unknown Rx ALBUTEROL NEB's [Proventil 0.083% 2.5 mg IH TID PRN #30 neb 10/12/19 Unknown Rx NEBS] Ibuprofen [Motrin 600 MG tab] 600 mg PO Q8H PRN #20 tablet 03/17/20 Unknown Rx Prednisone [predniSONE 10 mg 10 mg PO .TAPER #1 tab.ds.pk 03/17/20 Unknown Rx (6-Day Pack, 21 Tabs)] ALBUTEROL NEB's [Proventil 0.083% 2.5 mg IH TID PRN #1 box 04/04/20 Unknown Rx NEBS] Albuterol Mdi (or & Nicu Only) 2 puff IH QID PRN #1 inhalation 07/07/20 Unknown Rx [ProAir HFA Inhaler] Albuterol Mdi (or & Nicu Only) 2 puff IH QID PRN #1 inhalation 11/20/20 Unknown Rx [ProAir HFA Inhaler] Albuterol Sulfate [Albuterol 0.63% 0.63 mg IH TID PRN #1 box 11/20/20 Unknown Rx NEBS] Azithromycin [Zithromax Z-GLADIS] 250 mg PO DAILY #6 tab 11/20/20 Unknown Rx Benzonatate [Tessalon Perles] 100 mg PO Q8HR PRN #30 capsule 11/20/20 Unknown Rx Montelukast [Singulair] 10 mg PO QPM #14 tablet 11/20/20 Unknown Rx Prednisone [predniSONE 10 mg 10 mg PO .TAPER #1 tab.ds.pk 11/20/20 Unknown Rx (6-Day Pack, 21 Tabs)] Albuterol Mdi (or & Nicu Only) 2 puff IH QID PRN #8.5 gram 01/06/21 Unknown Rx [ProAir HFA Inhaler] Albuterol Sulfate [Albuterol 0.63% 0.63 mg IH TID PRN #75 ml 01/31/21 Unknown Rx NEBS] Prednisone [predniSONE 10 mg 10 mg PO .TAPER #1 tab.ds.pk 01/31/21 Unknown Rx (6-Day Pack, 21 Tabs)] ALBUTEROL NEB's [Proventil 0.083% 2.5 mg IH QID PRN #1 box 05/01/21 Unknown Rx NEBS] Albuterol Mdi (or & Nicu Only) 2 puff IH QID PRN #8.5 gram 05/01/21 Unknown Rx [ProAir HFA Inhaler] Budesonide/Formoterol Fumarate 1 inhalation IH DAILY #1 hfa.aer.ad 05/01/21 Un known Rx [Symbicort 160-4.5 Mcg Inhaler] predniSONE [Deltasone] 40 mg PO QDAY 5 Days #10 tab 05/01/21 Unknown Rx ALBUTEROL NEB's [Proventil 0.083% 2.5 mg IH TID PRN #1 box 05/10/21 Unknown Rx NEBS] Albuterol Mdi (or & Nicu Only) 2 puff IH QID PRN #1 device 05/10/21 Unknown Rx [ProAir HFA Inhaler] Budesonide/Formoterol Fumarate 2 puff IH BID #1 device 05/10/21 Unknown Rx [Symbicort 160-4.5 Mcg Inhaler] Loratadine 10 mg PO DAILY #30 cap 05/10/21 Unknown Rx Montelukast [Singulair] 10 mg PO QPM #30 tablet 05/10/21 Unknown Rx Prednisone [predniSONE 10 mg 10 mg PO .TAPER #1 05/10/21 Unknown Rx (6-Day Pack, 21 Tabs)] Albuterol Mdi (or & Nicu Only) 2 puff IH QID PRN #8.5 gram 06/08/21 Unknown Rx [ProAir HFA Inhaler] methylPREDNISolone [Medrol 4MG 4 mg PO DAILY #1 06/08/21 Unknown Rx DOSEPAK (21 tabs)] Albuterol Mdi (or & Nicu Only) 2 puff IH QID PRN #8.5 gram 07/03/21 Unknown Rx [ProAir HFA Inhaler] Albuterol Sulfate [Albuterol 0.63% 0.63 mg IH TID PRN #1 box 07/03/21 Unknown Rx NEBS] Benzonatate [Tessalon Perles] 100 mg PO Q8HR #21 cap 07/03/21 Unknown Rx Brompheniramine/Pseudoephed/Dm 10 ml PO TID PRN #120 ml 07/03/21 Unknown Rx [Bromfed Dm Cough Syrup] Montelukast [Singulair] 10 mg PO QPM #30 tablet 07/03/21 Unknown Rx Prednisone [predniSONE 10 mg 10 mg PO .TAPER #1 pack 07/03/21 Unknown Rx (6-Day Pack, 21 Tabs)] Allergies Allergy/AdvReac Type Severity Reaction Status Date / Time No Known Allergies Allergy Verified 06/08/21 23:38 ED Review of Systems ROS: Stated complaint: SOB Other details as noted in HPI Comment: All other systems reviewed and negative Constitutional: denies: chills, fever ENT: congestion Respiratory: cough, shortness of breath, SOB with exertion, wheezing Cardiovascular: denies: chest pain, palpitations, dyspnea on exertion, orthopnea, edema, syncope, paroxysmal nocturnal dyspnea Gastrointestinal: denies: abdominal pain, nausea, vomiting Genitourinary: denies: urgency, dysuria Musculoskeletal: denies: back pain Skin: denies: rash, lesions Neurological: denies: headache, weakness, numbness, paresthesias, confusion, abnormal gait, vertigo ED Past Medical Hx - Past Medical History Hx Asthma: Yes - Social History Smoking Status: Never Smoker Substance Use Type: None - Medications Home Medications: Home Medications Medication Instructions Recorded Confirmed Last Taken Type Ibuprofen [Motrin 800 MG tab] 800 mg PO Q8HR PRN #30 tablet 08/23/19 Unknown Rx ALBUTEROL NEB's [Proventil 0.083% 5 mg IH TID PRN #75 ml 09/06/19 Unknown Rx NEBS] Montelukast [Singulair] 10 mg PO QPM #14 tablet 09/28/19 Unknown Rx ALBUTEROL NEB's [Proventil 0.083% 2.5 mg IH TID PRN #30 neb 10/12/19 Unknown Rx NEBS] Ibuprofen [Motrin 600 MG tab] 600 mg PO Q8H PRN #20 tablet 03/17/20 Unknown Rx Prednisone [predniSONE 10 mg 10 mg PO .TAPER #1 tab.ds.pk 03/17/20 Unknown Rx (6-Day Pack, 21 Tabs)] ALBUTEROL NEB's [Proventil 0.083% 2.5 mg IH TID PRN #1 box 04/04/20 Unknown Rx NEBS] Albuterol Mdi (or & Nicu Only) 2 puff IH QID PRN #1 inhalation 07/07/20 Unknown Rx [ProAir HFA Inhaler] Albuterol Mdi (or & Nicu Only) 2 puff IH QID PRN #1 inhalation 11/20/20 Unknown Rx [ProAir HFA Inhaler] Albuterol Sulfate [Albuterol 0.63% 0.63 mg IH TID PRN #1 box 11/20/20 Unknown Rx NEBS] Azithromycin [Zithromax Z-GLADIS] 250 mg PO DAILY #6 tab 11/20/20 Unknown Rx Benzonatate [Tessalon Perles] 100 mg PO Q8HR PRN #30 capsule 11/20/20 Unknown Rx Montelukast [Singulair] 10 mg PO QPM #14 tablet 11/20/20 Unknown Rx Prednisone [predniSONE 10 mg 10 mg PO .TAPER #1 tab.ds.pk 11/20/20 Unknown Rx (6-Day Pack, 21 Tabs)] Albuterol Mdi (or & Nicu Only) 2 puff IH QID PRN #8.5 gram 01/06/21 Unknown Rx [ProAir HFA Inhaler] Albuterol Sulfate [Albuterol 0.63% 0.63 mg IH TID PRN #75 ml 01/31/21 Unknown R x NEBS] Prednisone [predniSONE 10 mg 10 mg PO .TAPER #1 tab.ds.pk 01/31/21 Unknown Rx (6-Day Pack, 21 Tabs)] ALBUTEROL NEB's [Proventil 0.083% 2.5 mg IH QID PRN #1 box 05/01/21 Unknown Rx NEBS] Albuterol Mdi (or & Nicu Only) 2 puff IH QID PRN #8.5 gram 05/01/21 Unknown Rx [ProAir HFA Inhaler] Budesonide/Formoterol Fumarate 1 inhalation IH DAILY #1 hfa.aer.ad 05/01/21 Unknown Rx [Symbicort 160-4.5 Mcg Inhaler] predniSONE [Deltasone] 40 mg PO QDAY 5 Days #10 tab 05/01/21 Unknown Rx ALBUTEROL NEB's [Proventil 0.083% 2.5 mg IH TID PRN #1 box 05/10/21 Unknown Rx NEBS] Albuterol Mdi (or & Nicu Only) 2 puff IH QID PRN #1 device 05/10/21 Unknown Rx [ProAir HFA Inhaler] Budesonide/Formoterol Fumarate 2 puff IH BID #1 device 05/10/21 Unknown Rx [Symbicort 160-4.5 Mcg Inhaler] Loratadine 10 mg PO DAILY #30 cap 05/10/21 Unknown Rx Montelukast [Singulair] 10 mg PO QPM #30 tablet 05/10/21 Unknown Rx Prednisone [predniSONE 10 mg 10 mg PO .TAPER #1 05/10/21 Unknown Rx (6-Day Pack, 21 Tabs)] Albuterol Mdi (or & Nicu Only) 2 puff IH QID PRN #8.5 gram 06/08/21 Unknown Rx [ProAir HFA Inhaler] methylPREDNISolone [Medrol 4MG 4 mg PO DAILY #1 06/08/21 Unknown Rx DOSEPAK (21 tabs)] Albuterol Mdi (or & Nicu Only) 2 puff IH QID PRN #8.5 gram 07/03/21 Unknown Rx [ProAir HFA Inhaler] Albuterol Sulfate [Albuterol 0.63% 0.63 mg IH TID PRN #1 box 07/03/21 Unknown Rx NEBS] Benzonatate [Tessalon Perles] 100 mg PO Q8HR #21 cap 07/03/21 Unknown Rx Brompheniramine/Pseudoephed/Dm 10 ml PO TID PRN #120 ml 07/03/21 Unknown Rx [Bromfed Dm Cough Syrup] Montelukast [Singulair] 10 mg PO QPM #30 tablet 07/03/21 Unknown Rx Prednisone [predniSONE 10 mg 10 mg PO .TAPER #1 pack 07/03/21 Unknown Rx (6-Day Pack, 21 Tabs)] ED Physical Exam - General Limitations: No Limitations General appearance: alert, in no apparent distress - Head Head exam: Present: atraumatic, normocephalic - Eye Eye exam: Present: normal appearance. Absent: conjunctival injection - ENT ENT exam: Present: normal exam - Neck Neck exam: Present: normal inspection. Absent: tenderness, lymphadenopathy - Respiratory Respiratory exam: Present: wheezes. Absent: respiratory distress, rales, rhonchi, stridor, chest wall tenderness, accessory muscle use - Cardiovascular Cardiovascular Exam: Present: regular rate, normal heart sounds - GI/Abdominal GI/Abdominal exam: Present: soft, normal bowel sounds. Absent: distended, tenderness, guarding, rebound, rigid - Extremities Exam Extremities exam: Present: normal inspection - Back Exam Back exam: Present: normal inspection. Absent: CVA tenderness (R), CVA tenderness (L) - Neurological Exam Neurological exam: Present: alert, oriented X3, normal gait - Psychiatric Psychiatric exam: Present: normal affect, normal mood - Skin Skin exam: Present: warm, dry, intact, normal color ED Course Vital Signs 07/03/21 07/03/21 10:27 14:17 Temperature 98.4 F Pulse Rate 73 87 Respiratory 20 20 Rate Blood Pressure 109/82 Blood Pressure 122/68 [Left] O2 Sat by Pulse 97 96 Oximetry - Reevaluation(s) Reevaluation #1: 07/03/21 13:37 Wheezing improved and patient states that he feels better. ED Medical Decision Making - Medical Decision Making 41-year-old black male with a past medical history of asthma presents to the emergency department for evaluation of shortness of breath that started last night. He states that he has shortness of breath and wheezing last night, used his albuterol nebulizer, but did not have any improvement. He denies fever, chest pain, nausea, vomiting, dizziness, and diaphoresis. He states that he has also had persistent cough and has ran out of his Singulair that he usually takes daily. Wheezing and shortness of breath significantly improved after DuoNeb treatments. Patient was also given Solu-Medrol injection while in the emergency department. Patient in no acute distress, and he is able to speak in complete sentences and ambulate around the room without any shortness of breath. He will be discharged home with prednisone Dosepak, refill of Singulair to take nightly, albuterol inhaler and nebulizer solution to use as needed and Tessalon and Bromfed to use as needed for cough. He is advised to take medications as prescribed and follow-up with primary care provider if worsening symptoms. He is advised to return to the emergency department as needed. Critical care attestation.: If time is entered above; I have spent that time in minutes in the direct care of this critically ill patient, excluding procedure time. ED Disposition Clinical Impression: Acute asthma exacerbation Qualifiers: Asthma severity: mild Asthma persistence: persistent Qualified Code(s): J45.31 - Mild persistent asthma with (acute) exacerbation Disposition: 01 HOME / SELF CARE / HOMELESS Is pt being admited?: No Does the pt Need Aspirin: No Condition: Stable Instructions: Asthma, Adult, [id number], Asthma Attack, Asthma Attack Prevention, Adult Additional Instructions: Take medication as prescribed. Follow-up with primary care or pulmonology for further evaluation and management. Return to the emergency department for any concerning symptoms. Prescriptions: Albuterol Sulfate [Albuterol 0.63% NEBS] 0.63 mg IH TID PRN #1 box PRN Reason: Wheezing Brompheniramine/Pseudoephed/Dm [Bromfed Dm Cough Syrup] 10 ml PO TID PRN #120 ml PRN Reason: Cough Prednisone [predniSONE 10 mg (6-Day Pack, 21 Tabs)] 10 mg PO .TAPER #1 pack Albuterol Mdi (or & Nicu Only) [ProAir HFA Inhaler] 2 puff IH QID PRN #8.5 gram PRN Reason: Shortness Of Breath Montelukast [Singulair] 10 mg PO QPM #30 tablet Benzonatate [Tessalon Perles] 100 mg PO Q8HR #21 cap Referrals: JANICE BUCK MD [Referring] - 3-5 Days ANAYELI CHAIVRA MD [Staff Physician] - 3-5 Days Time of Disposition: 13:47
[2021-07-03 14:18] VITALS: BP 122/68
== END 2021-07-03 14:18 | disposition home or self-care (01) ==
LOC: ED 10:08
DX: J45.901 Unspecified asthma with (acute) exacerbation (principal); Z79.899 Other long term (current) drug therapy
CPT/HCPCS: 94640; 96372; 99282; J2930

== ENCOUNTER 2021-07-21 22:01 | Emergency (ER) | payer SELFPAY ==
[2021-07-21] MEDS ORDERED: ALBUTEROL 2.5 MG/3 ML NEBU IH ONE (22:29)
[2021-07-21] MEDS ORDERED: IPRATROPIUM 0.02% NEBU 2.5 ML IH ONE (22:29)
[2021-07-21] MEDS ORDERED: ONDANSETRON 4 MG ODT TAB PO ONE (22:29)
[2021-07-21] MEDS ORDERED: predniSONE 20 MG TAB PO ONE (22:29)
--- NOTE | 2021-07-21 22:33 | Emergency Department Report ---
ED Asthma HPI - General Chief Complaint: Adult Asthma Stated Complaint: ASTHMA ISSUES Source: patient, RN notes reviewed, old records reviewed Mode of arrival: Ambulatory Limitations: No Limitations - History of Present Illness Initial Comments: The patient is a 41-year-old gentleman, who presents to the ER with cough, wheezing, and shortness of breath, states this is typical for his prior asthma attacks and exacerbations. Reports nothing unusual about today's presentation. Received 10 mg of albuterol, 1 mg of Atrovent, and steroids. Feels improved at this time, still wheezing minimally. Asking for final treatment prior to discharge. Denies additional injuries and complaints, does endorse some back discomfort from breathing heavily. MD Complaint: "asthma attack", shortness of breath, wheezing -: Gradual, hour(s) Asthma History: history of prior ED visit Severity: moderate Associated Symptoms: none - Related Data Previous Rx's Medication Instructions Recorded Last Taken Type Ibuprofen [Motrin 800 MG tab] 800 mg PO Q8HR PRN #30 tablet 08/23/19 Unknown Rx ALBUTEROL NEB's [Proventil 0.083% 5 mg IH TID PRN #75 ml 09/06/19 Unknown Rx NEBS] Montelukast [Singulair] 10 mg PO QPM #14 tablet 09/28/19 Unknown Rx ALBUTEROL NEB's [Proventil 0.083% 2.5 mg IH TID PRN #30 neb 10/12/19 Unknown Rx NEBS] Ibuprofen [Motrin 600 MG tab] 600 mg PO Q8H PRN #20 tablet 03/17/20 Unknown Rx Prednisone [predniSONE 10 mg 10 mg PO .TAPER #1 tab.ds.pk 03/17/20 Unknown Rx (6-Day Pack, 21 Tabs)] ALBUTEROL NEB's [Proventil 0.083% 2.5 mg IH TID PRN #1 box 04/04/20 Unknown Rx NEBS] Albuterol Mdi (or & Nicu Only) 2 puff IH QID PRN #1 inhalation 07/07/20 Unknown Rx [ProAir HFA Inhaler] Albuterol Mdi (or & Nicu Only) 2 puff IH QID PRN #1 inhalation 11/20/20 Unknown Rx [ProAir HFA Inhaler] Albuterol Sulfate [Albuterol 0.63% 0.63 mg IH TID PRN #1 box 11/20/20 Unknown Rx NEBS] Azithromycin [Zithromax Z-GLADIS] 250 mg PO DAILY #6 tab 11/20/20 Unknown Rx Benzonatate [Tessalon Perles] 100 mg PO Q8HR PRN #30 capsule 11/20/20 Unknown Rx Montelukast [Singulair] 10 mg PO QPM #14 tablet 11/20/20 Unknown Rx Prednisone [predniSONE 10 mg 10 mg PO .TAPER #1 tab.ds.pk 11/20/20 Unknown Rx (6-Day Pack, 21 Tabs)] Albuterol Mdi (or & Nicu Only) 2 puff IH QID PRN #8.5 gram 01/06/21 Unknown Rx [ProAir HFA Inhaler] Albuterol Sulfate [Albuterol 0.63% 0.63 mg IH TID PRN #75 ml 01/31/21 Unknown Rx NEBS] Prednisone [predniSONE 10 mg 10 mg PO .TAPER #1 tab.ds.pk 01/31/21 Unknown Rx (6-Day Pack, 21 Tabs)] ALBUTEROL NEB's [Proventil 0.083% 2.5 mg IH QID PRN #1 box 05/01/21 Unknown Rx NEBS] Albuterol Mdi (or & Nicu Only) 2 puff IH QID PRN #8.5 gram 05/01/21 Unknown Rx [ProAir HFA Inhaler] Budesonide/Formoterol Fumarate 1 inhalation IH DAILY #1 hfa.aer.ad 05/01/21 Unknown Rx [Symbicort 160-4.5 Mcg Inhaler] predniSONE [Deltasone] 40 mg PO QDAY 5 Days #10 tab 05/01/21 Unknown Rx ALBUTEROL NEB's [Proventil 0.083% 2.5 mg IH TID PRN #1 box 05/10/21 Unknown Rx NEBS] Albuterol Mdi (or & Nicu Only) 2 puff IH QID PRN #1 device 05/10/21 Unknown Rx [ProAir HFA Inhaler] Budesonide/Formoterol Fumarate 2 puff IH BID #1 device 05/10/21 Unknown Rx [Symbicort 160-4.5 Mcg Inhaler] Loratadine 10 mg PO DAILY #30 cap 05/10/21 Unknown Rx Montelukast [Singulair] 10 mg PO QPM #30 tablet 05/10/21 Unknown Rx Prednisone [predniSONE 10 mg 10 mg PO .TAPER #1 05/10/21 Unknown Rx (6-Day Pack, 21 Tabs)] Albuterol Mdi (or & Nicu Only) 2 puff IH QID PRN #8.5 gram 06/08/21 Unknown Rx [ProAir HFA Inhaler] methylPREDNISolone [Medrol 4MG 4 mg PO DAILY #1 06/08/21 Unknown Rx DOSEPAK (21 tabs)] Albuterol Mdi (or & Nicu Only) 2 puff IH QID PRN #8.5 gram 07/03/21 Unknown Rx [ProAir HFA Inhaler] Albuterol Sulfate [Albuterol 0.63% 0.63 mg IH TID PRN #1 box 07/03/21 Unknown Rx NEBS] Benzonatate [Tessalon Perles] 100 mg PO Q8HR #21 cap 07/03/21 Unknown Rx Brompheniramine/Pseudoephed/Dm 10 ml PO TID PRN #120 ml 07/03/21 Unknown Rx [Bromfed Dm Cough Syrup] Montelukast [Singulair] 10 mg PO QPM #30 tablet 07/03/21 Unknown Rx Prednisone [predniSONE 10 mg 10 mg PO .TAPER #1 pack 07/03/21 Unknown Rx (6-Day Pack, 21 Tabs)] Albuterol Sulfate [Albuterol 0.63% 0.63 mg IH Q4HR PRN #2 ml 07/22/21 Unknown Rx NEBS] Albuterol Sulfate [Proair 90 mcg IH Q4HR PRN #2 aer.pow.ba 07/22/21 Unknown Rx Respiclick] predniSONE [Deltasone] 40 mg PO QDAY #8 tab 07/22/21 Unknown Rx Allergies Allergy/AdvReac Type Severity Reaction Status Date / Time No Known Allergies Allergy Verified 06/08/21 23:38 ED Review of Systems ROS: Stated complaint: ASTHMA ISSUES Other details as noted in HPI Constitutional: denies: fever Respiratory: cough, shortness of breath, wheezing Cardiovascular: denies: chest pain Gastrointestinal: denies: abdominal pain Musculoskeletal: back pain ED Past Medical Hx - Past Medical History Previous Medical History?: Yes Hx Asthma: Yes - Surgical History Past Surgical History?: No - Social History Smoking Status: Never Smoker Substance Use Type: None - Medications Home Medications: Home Medications Medication Instructions Recorded Confirmed Last Taken Type Ibuprofen [Motrin 800 MG tab] 800 mg PO Q8HR PRN #30 tablet 08/23/19 Unknown Rx ALBUTEROL NEB's [Proventil 0.083% 5 mg IH TID PRN #75 ml 09/06/19 Unknown Rx NEBS] Montelukast [Singulair] 10 mg PO QPM #14 tablet 09/28/19 Unknown Rx ALBUTEROL NEB's [Proventil 0.083% 2.5 mg IH TID PRN #30 neb 10/12/19 Unknown Rx NEBS] Ibuprofen [Motrin 600 MG tab] 600 mg PO Q8H PRN #20 tablet 03/17/20 Unknown Rx Prednisone [predniSONE 10 mg 10 mg PO .TAPER #1 tab.ds.pk 03/17/20 Unknown Rx (6-Day Pack, 21 Tabs)] ALBUTEROL NEB's [Proventil 0.083% 2.5 mg IH TID PRN #1 box 04/04/20 Unknown Rx NEBS] Albuterol Mdi (or & Nicu Only) 2 puff IH QID PRN #1 inhalation 07/07/20 Unknown Rx [ProAir HFA Inhaler] Albuterol Mdi (or & Nicu Only) 2 puff IH QID PRN #1 inhalation 11/20/20 Unknown Rx [ProAir HFA Inhaler] Albuterol Sulfate [Albuterol 0.63% 0.63 mg IH TID PRN #1 box 11/20/20 Unknown Rx NEBS] Azithromycin [Zithromax Z-GLADIS] 250 mg PO DAILY #6 tab 11/20/20 Unknown Rx Benzonatate [Tessalon Perles] 100 mg PO Q8HR PRN #30 capsule 11/20/20 Unknown Rx Montelukast [Singulair] 10 mg PO QPM #14 tablet 11/20/20 Unknown Rx Prednisone [predniSONE 10 mg 10 mg PO .TAPER #1 tab.ds.pk 11/20/20 Unknown Rx (6-Day Pack, 21 Tabs)] Albuterol Mdi (or & Nicu Only) 2 puff IH QID PRN #8.5 gram 01/06/21 Unknown Rx [ProAir HFA Inhaler] Albuterol Sulfate [Albuterol 0.63% 0.63 mg IH TID PRN #75 ml 01/31/21 Unknown Rx NEBS] Prednisone [predniSONE 10 mg 10 mg PO .TAPER #1 tab.ds.pk 01/31/21 Unknown Rx (6-Day Pack, 21 Tabs)] ALBUTEROL NEB's [Proventil 0.083% 2.5 mg IH QID PRN #1 box 05/01/21 Unknown Rx NEBS] Albuterol Mdi (or & Nicu Only) 2 puff IH QID PRN #8.5 gram 05/01/21 Unknown Rx [ProAir HFA Inhaler] Budesonide/Formoterol Fumarate 1 inhalation IH DAILY #1 hfa.aer.ad 05/01/21 Unknown Rx [Symbicort 160-4.5 Mcg Inhaler] predniSONE [Deltasone] 40 mg PO QDAY 5 Days #10 tab 05/01/21 Unknown Rx ALBUTEROL NEB's [Proventil 0.083% 2.5 mg IH TID PRN #1 box 05/10/21 Unknown Rx NEBS] Albuterol Mdi (or & Nicu Only) 2 puff IH QID PRN #1 device 05/10/21 Unknown Rx [ProAir HFA Inhaler] Budesonide/Formoterol Fumarate 2 puff IH BID #1 device 05/10/21 Unknown Rx [Symbicort 160-4.5 Mcg Inhaler] Loratadine 10 mg PO DAILY #30 cap 05/10/21 Unknown Rx Montelukast [Singulair] 10 mg PO QPM #30 tablet 05/10/21 Unknown Rx Prednisone [predniSONE 10 mg 10 mg PO .TAPER #1 05/10/21 Unknown Rx (6-Day Pack, 21 Tabs)] Albuterol Mdi (or & Nicu Only) 2 puff IH QID PRN #8.5 gram 06/08/21 Unknown Rx [ProAir HFA Inhaler] methylPREDNISolone [Medrol 4MG 4 mg PO DAILY #1 06/08/21 Unknown Rx DOSEPAK (21 tabs)] Albuterol Mdi (or & Nicu Only) 2 puff IH QID PRN #8.5 gram 07/03/21 Unknown Rx [ProAir HFA Inhaler] Albuterol Sulfate [Albuterol 0.63% 0.63 mg IH TID PRN #1 box 07/03/21 Unknown Rx NEBS] Benzonatate [Tessalon Perles] 100 mg PO Q8HR #21 cap 07/03/21 Unknown Rx Brompheniramine/Pseudoephed/Dm 10 ml PO TID PRN #120 ml 07/03/21 Unknown Rx [Bromfed Dm Cough Syrup] Montelukast [Singulair] 10 mg PO QPM #30 tablet 07/03/21 Unknown Rx Prednisone [predniSONE 10 mg 10 mg PO .TAPER #1 pack 07/03/21 Unknown Rx (6-Day Pack, 21 Tabs)] Albuterol Sulfate [Albuterol 0.63% 0.63 mg IH Q4HR PRN #2 ml 07/22/21 Unknown Rx NEBS] Albuterol Sulfate [Proair 90 mcg IH Q4HR PRN #2 aer.pow.ba 07/22/21 Unknown Rx Respiclick] predniSONE [Deltasone] 40 mg PO QDAY #8 tab 07/22/21 Unknown Rx ED Physical Exam - General Limitations: No Limitations General appearance: alert, in no apparent distress - Head Head exam: Present: atraumatic, normocephalic - Eye Eye exam: Present: normal appearance, EOMI. Absent: nystagmus - ENT ENT exam: Present: normal exam, normal orophraynx, mucous membranes moist, normal external ear exam - Neck Neck exam: Present: normal inspection, full ROM. Absent: tenderness, meningismus - Respiratory Respiratory exam: Present: wheezes. Absent: respiratory distress, rales, stridor - Cardiovascular Cardiovascular Exam: Present: regular rate, normal rhythm, normal heart sounds. Absent: bradycardia, tachycardia, irregular rhythm, systolic murmur, diastolic murmur, rubs, gallop - GI/Abdominal GI/Abdominal exam: Present: soft. Absent: distended, tenderness, guarding, rebound, rigid, pulsatile mass - Rectal Rectal exam: Present: deferred - Extremities Exam Extremities exam: Present: normal inspection, full ROM, other (2+ pulses noted in the bilateral upper extremities. There is no long bony tenderness. The muscular compartments are soft. The pelvis is stable). Absent: pedal edema, calf tenderness - Back Exam Back exam: Present: normal inspection, full ROM. Absent: tenderness, CVA tenderness (R), CVA tenderness (L), paraspinal tenderness, vertebral tenderness - Neurological Exam Neurological exam: Present: alert, oriented X3, normal gait, other (No facial droop. Tongue midline. Extraocular movements intact bilaterally. Facial sensation intact to light touch in V1, V2, V3 distribution bilaterally. 5 and a 5 strength in 4 extremities. Sensation intact to light touch in 4 extremities.). Absent: motor sensory deficit - Psychiatric Psychiatric exam: Present: normal affect, normal mood - Skin Skin exam: Present: warm, dry, intact, normal color. Absent: rash ED Course Vital Signs 07/21/21 07/21/21 04 22:21 22:43 00:18 Temperature 98.3 F Pulse Rate 89 Pulse Rate [ 89 87 Bilateral] Respiratory 18 Rate Respiratory 20 18 Rate [Bilateral ] Blood Pressure 115/83 O2 Sat by Pulse 97 Oximetry - Reevaluation(s) Reevaluation #1: 07/22/21 00:11 Differential diagnosis, including but not limited to: Asthma exacerbation, reactive airways disease Assessment and plan: 41-year-old gentleman, who is afebrile, with reassuring vital signs, clinically sober with a GCS of 15, presenting with probable simple reactive airways disease exacerbation. He felt moderately improved after initial therapy with albuterol, Atrovent and steroids. On first reassessment, resting comfortably on chair, drinking soda, and playing on his cellular phone. Still having minimal wheezing. Repeat albuterol treatment ordered. Anticipate discharge with outpatient therapy 07/22/21 01:32 Reassessed. Feels improved. No active wheezing. On cell phone. Asking to be discharged. ED Medical Decision Making - Lab Data Vital Signs 07/21/21 07/21/21 22:21 22:43 Temperature 98.3 F Pulse Rate 89 Pulse Rate [ 89 Bilateral] Respiratory 18 Rate Respiratory 20 Rate [Bilateral ] Blood Pressure 115/83 O2 Sat by Pulse 97 Oximetry Critical care attestation.: If time is entered above; I have spent that time in minutes in the direct care of this critically ill patient, excluding procedure time. ED Disposition Clinical Impression: Asthma exacerbation Disposition: 01 HOME / SELF CARE / HOMELESS Is pt being admited?: No Does the pt Need Aspirin: No Condition: Good Instructions: Asthma, Adult Additional Instructions: Please take the medications as directed. Please follow-up with a primary care doctor within 3 to 5 days. Please take steroids as directed. Please return to the emergency room right away with new pain, worsened pain, migration of pain, projectile vomiting, change in mental status, confusion, inability tolerate liquid feeds, new, worsened or different symptoms not present on the initial emergency room evaluation Prescriptions: Albuterol Sulfate [Albuterol 0.63% NEBS] 0.63 mg IH Q4HR PRN #2 ml PRN Reason: Wheezing predniSONE [Deltasone] 40 mg PO QDAY #8 tab Albuterol Sulfate [Proair Respiclick] 90 mcg IH Q4HR PRN #2 aer.pow.ba PRN Reason: Wheezing Referrals: [facility] [Provider Group] - 3-5 Days Forms: Work/School Release Form(ED)
[2021-07-22] MEDS ORDERED: ALBUTEROL 2.5 MG/3 ML NEBU IH ONE (00:04)
[2021-07-22 02:12] VITALS: BP 110/67
== END 2021-07-22 02:12 | disposition home or self-care (01) ==
LOC: ED 22:01
DX: J45.901 Unspecified asthma with (acute) exacerbation (principal); Z79.899 Other long term (current) drug therapy
CPT/HCPCS: 94640; 94644; 99283; J3490; Q0162

== ENCOUNTER 2021-08-26 23:51 | Emergency (ER) | payer SELFPAY ==
[2021-08-27] MEDS ORDERED: ALBUTEROL 2.5 MG/3 ML NEBU IH ONE (01:16)
[2021-08-27] MEDS ORDERED: IPRATROPIUM 0.02% NEBU 2.5 ML IH ONE (01:16)
[2021-08-27] MEDS: methylPREDNISolone Sod Succinate 125 MG/2 ML INJ IM ONE ×2 (01:27→02:07)
[2021-08-27] MEDS ORDERED: predniSONE 20 MG TAB PO ONE (01:41)
--- NOTE | 2021-08-27 01:45 | XRay Report ---
CHEST 1 VIEW INDICATION / CLINICAL INFORMATION: dyspnea, chest tightness, asthma STUDY TIME: 122 COMPARISON: 06/08/2021 FINDINGS: SUPPORT DEVICES: None HEART / MEDIASTINUM: No significant abnormality. LUNGS / PLEURA: Overlying artifact is seen, particularly in the upper lobes. I believe the mild incre ase in density in the upper chest is likely related to this artifact. No definite acute infiltrates a re seen. No pleural effusions are noted. No pneumothorax. ADDITIONAL FINDINGS: No significant additional findings. Signer Name: Shaheen Koch MD Signed: 08/27/2021 1:40 AM Workstation Name: [id number]
--- NOTE | 2021-08-27 01:54 | Emergency Department Report ---
ED Shortness of Breath HPI - General Chief Complaint: Adult Asthma Stated Complaint: ASTHMA Source: patient Mode of arrival: Ambulatory Limitations: No Limitations - History of Present Illness Initial Comments: Patient is a 41-year-old -[place] male with a history of asthma who presents to the ED with complaint of acute onset persistent shortness of breath, persistent dry cough, chest tightness and wheezing for the last 2 days despite using his albuterol nebulizer and inhalers at home prior to arrival in the ED. Patient states that the symptoms are worsened in the last 12 hours. Patient states that he has had multiple bronchodilator treatments at home with no relief. Patient denies fever, chills, nausea and vomiting, chest pain, sore throat, fever and chills, abdominal pain, diarrhea or headache and dizziness or syncope. MD Complaint: shortness of breath, cough, "asthma attack" -: Sudden, days(s) (2) Severity: severe Pain Scale: 7 Quality: aching, other (Chest tightness) Consistency: constant Improves With: nothing Worsens With: nothing Known History Of: asthma Context: recent URI, allergen exposure Associated Symptoms: chest pain (Chest tightness), cough Treatments Prior to Arrival: bronchodilator - Related Data Home Oxygen Therapy: No Previous Rx's Medication Instructions Recorded Last Taken Type Ibuprofen [Motrin 800 MG tab] 800 mg PO Q8HR PRN #30 tablet 08/23/19 Unknown Rx ALBUTEROL NEB's [Proventil 0.083% 2.5 mg IH TID PRN #30 neb 10/12/19 Unknown Rx NEBS] Ibuprofen [Motrin 600 MG tab] 600 mg PO Q8H PRN #20 tablet 03/17/20 Unknown Rx ALBUTEROL NEB's [Proventil 0.083% 2.5 mg IH TID PRN #1 box 04/04/20 Unknown Rx NEBS] Albuterol Mdi (or & Nicu Only) 2 puff IH QID PRN #1 inhalation 11/20/20 Unknown Rx [ProAir HFA Inhaler] Albuterol Sulfate [Albuterol 0.63% 0.63 mg IH TID PRN #1 box 11/20/20 Unknown Rx NEBS] Azithromycin [Zithromax Z-GLADIS] 250 mg PO DAILY #6 tab 11/20/20 Unknown Rx Montelukast [Singulair] 10 mg PO QPM #14 tablet 11/20/20 Unknown Rx Prednisone [predniSONE 10 mg 10 mg PO .TAPER #1 tab.ds.pk 11/20/20 Unknown Rx (6-Day Pack, 21 Tabs)] Albuterol Mdi (or & Nicu Only) 2 puff IH QID PRN #8.5 gram 01/06/21 Unknown Rx [ProAir HFA Inhaler] Albuterol Sulfate [Albuterol 0.63% 0.63 mg IH TID PRN #75 ml 01/31/21 Unknown Rx NEBS] Prednisone [predniSONE 10 mg 10 mg PO .TAPER #1 tab.ds.pk 01/31/21 Unknown Rx (6-Day Pack, 21 Tabs)] ALBUTEROL NEB's [Proventil 0.083% 2.5 mg IH QID PRN #1 box 05/01/21 Unknown Rx NEBS] Albuterol Mdi (or & Nicu Only) 2 puff IH QID PRN #8.5 gram 05/01/21 Unknown Rx [ProAir HFA Inhaler] Budesonide/Formoterol Fumarate 1 inhalation IH DAILY #1 hfa.aer.ad 05/01/21 Unknown Rx [Symbicort 160-4.5 Mcg Inhaler] predniSONE [Deltasone] 40 mg PO QDAY 5 Days #10 tab 05/01/21 Unknown Rx ALBUTEROL NEB's [Proventil 0.083% 2.5 mg IH TID PRN #1 box 05/10/21 Unknown Rx NEBS] Albuterol Mdi (or & Nicu Only) 2 puff IH QID PRN #1 device 05/10/21 Unknown Rx [ProAir HFA Inhaler] Budesonide/Formoterol Fumarate 2 puff IH BID #1 device 05/10/21 Unknown Rx [Symbicort 160-4.5 Mcg Inhaler] Montelukast [Singulair] 10 mg PO QPM #30 tablet 05/10/21 Unknown Rx Prednisone [predniSONE 10 mg 10 mg PO .TAPER #1 05/10/21 Unknown Rx (6-Day Pack, 21 Tabs)] Albuterol Mdi (or & Nicu Only) 2 puff IH QID PRN #8.5 gram 06/08/21 Unknown Rx [ProAir HFA Inhaler] methylPREDNISolone [Medrol 4MG 4 mg PO DAILY #1 06/08/21 Unknown Rx DOSEPAK (21 tabs)] Albuterol Mdi (or & Nicu Only) 2 puff IH QID PRN #8.5 gram 07/03/21 Unknown Rx [ProAir HFA Inhaler] Albuterol Sulfate [Albuterol 0.63% 0.63 mg IH TID PRN #1 box 07/03/21 Unknown Rx NEBS] Benzonatate [Tessalon Perles] 100 mg PO Q8HR #21 cap 07/03/21 Unknown Rx Brompheniramine/Pseudoephed/Dm 10 ml PO TID PRN #120 ml 07/03/21 Unknown Rx [Bromfed Dm Cough Syrup] Montelukast [Singulair] 10 mg PO QPM #30 tablet 07/03/21 Unknown Rx Prednisone [predniSONE 10 mg 10 mg PO .TAPER #1 pack 07/03/21 Unknown Rx (6-Day Pack, 21 Tabs)] Albuterol Sulfate [Albuterol 0.63% 0.63 mg IH Q4HR PRN #2 ml 07/22/21 Unknown Rx NEBS] Albuterol Sulfate [Proair 90 mcg IH Q4HR PRN #2 aer.pow.ba 07/22/21 Unknown Rx Respiclick] predniSONE [Deltasone] 40 mg PO QDAY #8 tab 07/22/21 Unknown Rx ALBUTEROL NEB's [Proventil 0.083% 5 mg IH TID PRN #75 ml 08/27/21 Unknown Rx NEBS] Albuterol Mdi (or & Nicu Only) 2 puff IH QID PRN #1 inhalation 08/27/21 Unknown Rx [ProAir HFA Inhaler] Benzonatate [Tessalon Perles] 100 mg PO Q8HR PRN #30 capsule 08/27/21 Unknown Rx Loratadine 10 mg PO DAILY #30 cap 08/27/21 Unknown Rx Montelukast [Singulair] 10 mg PO QPM #30 tablet 08/27/21 Unknown Rx Prednisone [predniSONE 10 mg 10 mg PO .TAPER #21 tab.ds.pk 08/27/21 Unknown Rx (6-Day Pack, 21 Tabs)] Allergies Allergy/AdvReac Type Severity Reaction Status Date / Time No Known Allergies Allergy Verified 08/27/21 00:52 ED Review of Systems ROS: Stated complaint: ASTHMA Other details as noted in HPI Constitutional: denies: chills, fever Eyes: denies: eye pain, eye discharge, vision change ENT: congestion. denies: ear pain, throat pain Respiratory: cough, shortness of breath, wheezing Cardiovascular: chest pain (Chest tightness). denies: palpitations Endocrine: no symptoms reported Gastrointestinal: denies: abdominal pain, nausea, diarrhea Genitourinary: denies: urgency, dysuria Musculoskeletal: denies: back pain, joint swelling, arthralgia Skin: denies: rash, lesions Neurological: denies: headache, weakness, paresthesias Psychiatric: denies: anxiety, depression Hematological/Lymphatic: denies: easy bleeding, easy bruising ED Past Medical Hx - Past Medical History Previous Medical History?: Yes Hx Asthma: Yes - Surgical History Past Surgical History?: No - Social History Smoking Status: Never Smoker Substance Use Type: None - Medications Home Medications: Home Medications Medication Instructions Recorded Confirmed Last Taken Type Ibuprofen [Motrin 800 MG tab] 800 mg PO Q8HR PRN #30 tablet 08/23/19 Unknown Rx ALBUTEROL NEB's [Proventil 0.083% 2.5 mg IH TID PRN #30 neb 10/12/19 Unknown Rx NEBS] Ibuprofen [Motrin 600 MG tab] 600 mg PO Q8H PRN #20 tablet 03/17/20 Unknown Rx ALBUTEROL NEB's [Proventil 0.083% 2.5 mg IH TID PRN #1 box 04/04/20 Unknown Rx NEBS] Albuterol Mdi (or & Nicu Only) 2 puff IH QID PRN #1 inhalation 11/20/20 Unknown Rx [ProAir HFA Inhaler] Albuterol Sulfate [Albuterol 0.63% 0.63 mg IH TID PRN #1 box 11/20/20 Unknown Rx NEBS] Azithromycin [Zithromax Z-GLADIS] 250 mg PO DAILY #6 tab 11/20/20 Unknown Rx Montelukast [Singulair] 10 mg PO QPM #14 tablet 11/20/20 Unknown Rx Prednisone [predniSONE 10 mg 10 mg PO .TAPER #1 tab.ds.pk 11/20/20 Unknown Rx (6-Day Pack, 21 Tabs)] Albuterol Mdi (or & Nicu Only) 2 puff IH QID PRN #8.5 gram 01/06/21 Unknown Rx [ProAir HFA Inhaler] Albuterol Sulfate [Albuterol 0.63% 0.63 mg IH TID PRN #75 ml 01/31/21 Unknown Rx NEBS] Prednisone [predniSONE 10 mg 10 mg PO .TAPER #1 tab.ds.pk 01/31/21 Unknown Rx (6-Day Pack, 21 Tabs)] ALBUTEROL NEB's [Proventil 0.083% 2.5 mg IH QID PRN #1 box 05/01/21 Unknown Rx NEBS] Albuterol Mdi (or & Nicu Only) 2 puff IH QID PRN #8.5 gram 05/01/21 Unknown Rx [ProAir HFA Inhaler] Budesonide/Formoterol Fumarate 1 inhalation IH DAILY #1 hfa.aer.ad 05/01/21 Unknown Rx [Symbicort 160-4.5 Mcg Inhaler] predniSONE [Deltasone] 40 mg PO QDAY 5 Days #10 tab 05/01/21 Unknown Rx ALBUTEROL NEB's [Proventil 0.083% 2.5 mg IH TID PRN #1 box 05/10/21 Unknown Rx NEBS] Albuterol Mdi (or & Nicu Only) 2 puff IH QID PRN #1 device 05/10/21 Unknown Rx [ProAir HFA Inhaler] Budesonide/Formoterol Fumarate 2 puff IH BID #1 device 05/10/21 Unknown Rx [Symbicort 160-4.5 Mcg Inhaler] Montelukast [Singulair] 10 mg PO QPM #30 tablet 05/10/21 Unknown Rx Prednisone [predniSONE 10 mg 10 mg PO .TAPER #1 05/10/21 Unknown Rx (6-Day Pack, 21 Tabs)] Albuterol Mdi (or & Nicu Only) 2 puff IH QID PRN #8.5 gram 06/08/21 Unknown Rx [ProAir HFA Inhaler] methylPREDNISolone [Medrol 4MG 4 mg PO DAILY #1 06/08/21 Unknown Rx DOSEPAK (21 tabs)] Albuterol Mdi (or & Nicu Only) 2 puff IH QID PRN #8.5 gram 07/03/21 Unknown Rx [ProAir HFA Inhaler] Albuterol Sulfate [Albuterol 0.63% 0.63 mg IH TID PRN #1 box 07/03/21 Unknown Rx NEBS] Benzonatate [Tessalon Perles] 100 mg PO Q8HR #21 cap 07/03/21 Unknown Rx Brompheniramine/Pseudoephed/Dm 10 ml PO TID PRN #120 ml 07/03/21 Unknown Rx [Bromfed Dm Cough Syrup] Montelukast [Singulair] 10 mg PO QPM #30 tablet 07/03/21 Unknown Rx Prednisone [predniSONE 10 mg 10 mg PO .TAPER #1 pack 07/03/21 Unknown Rx (6-Day Pack, 21 Tabs)] Albuterol Sulfate [Albuterol 0.63% 0.63 mg IH Q4HR PRN #2 ml 07/22/21 Unknown Rx NEBS] Albuterol Sulfate [Proair 90 mcg IH Q4HR PRN #2 aer.pow.ba 07/22/21 Unknown Rx Respiclick] predniSONE [Deltasone] 40 mg PO QDAY #8 tab 07/22/21 Unknown Rx ALBUTEROL NEB's [Proventil 0.083% 5 mg IH TID PRN #75 ml 08/27/21 Unknown Rx NEBS] Albuterol Mdi (or & Nicu Only) 2 puff IH QID PRN #1 inhalation 08/27/21 Unknown Rx [ProAir HFA Inhaler] Benzonatate [Tessalon Perles] 100 mg PO Q8HR PRN #30 capsule 08/27/21 Unknown Rx Loratadine 10 mg PO DAILY #30 cap 08/27/21 Unknown Rx Montelukast [Singulair] 10 mg PO QPM #30 tablet 08/27/21 Unknown Rx Prednisone [predniSONE 10 mg 10 mg PO .TAPER #21 tab.ds.pk 08/27/21 Unknown Rx (6-Day Pack, 21 Tabs)] ED Physical Exam - General Limitations: No Limitations General appearance: alert, in no apparent distress, anxious - Head Head exam: Present: atraumatic, normocephalic, normal inspection - Eye Eye exam: Present: normal appearance, PERRL, EOMI Pupils: Present: normal accommodation - ENT ENT exam: Present: normal orophraynx, mucous membranes moist, TM's normal bilaterally, normal external ear exam, other (Grossly congested nasal passages) - Neck Neck exam: Present: normal inspection, full ROM. Absent: tenderness - Respiratory Respiratory exam: Present: respiratory distress (Mild with use of accessory muscles), wheezes (Diffuse coarse wheezes throughout), accessory muscle use. Absent: normal lung sounds bilaterally, rales, rhonchi, chest wall tenderness, decreased breath sounds, prolonged expiratory - Cardiovascular Cardiovascular Exam: Present: regular rate, normal rhythm, normal heart sounds. Absent: systolic murmur, diastolic murmur, rubs, gallop - GI/Abdominal GI/Abdominal exam: Present: soft, normal bowel sounds. Absent: tenderness, guarding, rebound, hyperactive bowel sounds, hypoactive bowel sounds, organomegaly, mass, pulsatile mass - Extremities Exam Extremities exam: Present: normal inspection, full ROM, normal capillary refill. Absent: tenderness - Back Exam Back exam: Present: normal inspection, full ROM. Absent: tenderness, CVA tenderness (R), CVA tenderness (L), muscle spasm, paraspinal tenderness, vertebral tenderness - Neurological Exam Neurological exam: Present: alert, oriented X3, CN II-XII intact, normal gait, reflexes normal - Psychiatric Psychiatric exam: Present: normal affect, normal mood - Skin Skin exam: Present: warm, dry, intact, normal color. Absent: rash ED Medical Decision Making - Radiology Data Radiology results: report reviewed, image reviewed [facility] [address] [place] [address] XRay Report Signed Patient: SHAYNA ROBERSON MR#: [id number] : 1980 Acct:[id number] Age/Sex: 41 / M ADM Date: 08/26/21 Loc: ED Attending Dr: Ordering Physician: ARNULFO KEITA Date of Service: 08/27/21 Procedure(s): XR chest 1V ap Accession Number(s): [id number] cc: ARNULFO KEITA Fluoro Time In Minutes: CHEST 1 VIEW INDICATION / CLINICAL INFORMATION: dyspnea, chest tightness, asthma STUDY TIME: 122 COMPARISON: 06/08/2021 FINDINGS: SUPPORT DEVICES: None HEART / MEDIASTINUM: No significant abnormality. LUNGS / PLEURA: Overlying artifact is seen, particularly in the upper lobes. I believe the mild increase in density in the upper chest is likely related to this artifact. No definite acute infiltrates are seen. No pleural effusions are noted. No pneumothorax. ADDITIONAL FINDINGS: No significant additional findings. Signer Name: Shaheen Koch MD Signed: 08/27/2021 1:40 AM Workstation Name: [id number] Transcribed By: GJ Dictated By: Shaheen Koch MD Electronically Authenticated By: Shaheen Koch MD Signed Date/Time: 08/27/21139 DD/ 0139 TD/TT: - Medical Decision Making This is a 41-year-old -[place] male with a history of asthma who presents to the ED with complaint of acute onset persistent shortness of breath, persistent dry cough, chest tightness and wheezing for the last 2 days despite using his albuterol nebulizer and inhalers at home prior to arrival in the ED. Patient states that the symptoms are worsened in the last 12 hours. Patient states that he has had multiple bronchodilator treatments at home with no relief. In the ED, patient is alert and oriented x3 and is not in any distress. Patient is hemodynamically stable with oxygen saturation of 96% in room air. Patient was treated in the ED for asthma with oral prednisone 60 mg p.o. x1, DuoNeb for 1 hour. Chest x-ray showed no acute cardiopulmonary abnormalities or pneumonitis. On reevaluation, patient's wheezing resolved and patient felt better, patient will discharge home on medications and advised to follow-up with his primary care physician in 5 to 7 days for reevaluation return to the ED immediately if symptoms get worse. - Differential Diagnosis Asthma; bronchitis; pneumonia; URI; rhinitis; Critical care attestation.: If time is entered above; I have spent that time in minutes in the direct care of this critically ill patient, excluding procedure time. ED Disposition Clinical Impression: Acute bronchitis with asthma with acute exacerbation, Shortness of breath Disposition: HOME / SELF CARE / HOMELESS Is pt being admited?: No Does the pt Need Aspirin: No Condition: Stable Instructions: Shortness of Breath, Adult, [id number], Cough, Adult, [id number], Acute Bronchitis, Adult, [id number], Asthma, Adult, [id number] Additional Instructions: Chest x-ray showed no acute cardiopulmonary abnormalities or pneumonitis. Therefore take medications with food, drink plenty of fluids and follow-up with your primary care physician in 7 to 10 days for reevaluation. Return to the ED immediately if symptoms get worse. Prescriptions: Loratadine 10 mg PO DAILY #30 cap Prednisone [predniSONE 10 mg (6-Day Pack, 21 Tabs)] 10 mg PO .TAPER #21 tab.ds.pk Albuterol Mdi (or & Nicu Only) [ProAir HFA Inhaler] 2 puff IH QID PRN #1 inhal ation PRN Reason: Shortness Of Breath ALBUTEROL NEB's [Proventil 0.083% NEBS] 5 mg IH TID PRN #75 ml PRN Reason: Wheezing Montelukast [Singulair] 10 mg PO QPM #30 tablet Benzonatate [Tessalon Perles] 100 mg PO Q8HR PRN #30 capsule PRN Reason: Cough Referrals: [facility] [Provider Group] - 7-10 days Forms: Work/School Release Form(ED) Time of Disposition: 01:57 Print Language: AUSTRIAN
[2021-08-27 03:24] VITALS: BP 117/84
== END 2021-08-27 03:24 | disposition home or self-care (01) ==
LOC: ED 23:51
DX: J45.901 Unspecified asthma with (acute) exacerbation (principal); Z79.899 Other long term (current) drug therapy
CPT/HCPCS: 71045; 94640; 99283; J2930